=== PATIENT | female | born 1975 | race Caucasian/White ===

== ENCOUNTER 2019-10-10 13:00 | Outpatient (RCR) | payer OTHER, SELFPAY ==
[2019-08-27 09:31] VITALS: BMI 38.7
[2019-08-27 09:32] VITALS: BMI 38.7
[2019-10-10 13:03] VITALS: BMI 38.0
[2019-10-10 13:09] VITALS: BMI 38.0
== END 2019-11-25 23:59 | disposition home or self-care (01) ==
LOC: ANHDMC 13:00
PROVIDERS: PCP Internal Medicine; Visit Provider Internal Medicine
DX: E66.9 Obesity, unspecified (principal); Z71.3 Dietary counseling and surveillance; Z68.38 Body mass index [BMI] 38.0-38.9, adult; Z98.84 Bariatric surgery status
CPT/HCPCS: 97802; 97803

== ENCOUNTER 2020-09-10 07:34 | Outpatient (CLI) | payer OTHER, SELFPAY ==
--- NOTE | ~2020-09-10 | US_ITS ---
EXAMINATION: US right upper quadrant DATE: 09/10/2020 08:38 INDICATION: Right upper quadrant abdominal pain. TECHNIQUE: Multiple grayscale and Doppler ultrasound images of the abdomen were obtained. COMPARISON: CT abdomen and pelvis 10/21/2007 FINDINGS: The visualized portions of the head, body, and tail of the pancreas are normal. The liver i s normal without focal lesion. No liver surface nodularity. There is normal flow in main portal vein. The gallbladder is normal in size and contains polyps measuring up to 4 mm, likely benign cholestero l polyps needing no follow-up. No gallstones or gallbladder wall thickening. The common duct is jaky l and measures 5 mm. IMPRESSION: 1. No etiology for the patient's symptoms. Reviewed, dictated and finalized at location B.
[2020-09-10 08:56] LABS: Hematocrit 39.2 % (37.0-47.0); Hemoglobin 12.9 g/dL (12.0-15.0); Mean Corpuscular HGB Conc 32.9 g/dl (32-36); Mean Corpuscular Hemoglobin 29.9 pg (26-34); Mean Corpuscular Volume 90.7 fl (80-100); Mean Platelet Volume 10.6 fl (7.4-10.4); Platelet Count Result 298 k/mm3 (150-375); Red Blood Count 4.32 M/mm3 (4.2-5.4); White Blood Count 7.8 K/mm3 (4.5-10.0)
== END 2020-09-10 07:35 | disposition home or self-care (01) ==
PROVIDERS: PCP Internal Medicine; Visit Provider Internal Medicine
DX: R10.11 Right upper quadrant pain (principal)
CPT/HCPCS: 36415; 76705; 85027

== ENCOUNTER 2022-03-16 13:47 | Outpatient (CLI) | payer OTHER, SELFPAY ==
[2022-03-16 20:31] LABS: Thyroid Stimulating Hormone Reflex 0.319 uIU/mL (0.465-4.68)
[2022-03-16 21:28] LABS: Free T4 Free Thyroxine Reflex 0.81 ng/dL (0.78-2.19)
[2022-03-16 22:43] LABS: Total Triiodothyronine (T3) 1.21 NG/ML (0.97-1.69)
== END 2022-03-16 13:48 | disposition home or self-care (01) ==
LOC: ANHGOSHLAB 13:48
PROVIDERS: PCP Family Medicine; Visit Provider Nurse Practitioner
DX: E53.8 Deficiency of other specified B group vitamins (principal); R00.2 Palpitations
CPT/HCPCS: 36415; 82607; 84439; 84443; 84480

== ENCOUNTER 2022-06-24 12:40 | Outpatient (CLI) | payer OTHER, SELFPAY ==
[2022-06-24 13:31] LABS: Hematocrit 40.7 % (37.0-47.0); Hemoglobin 13.5 g/dL (12.0-15.0)
== END 2022-06-24 12:41 | disposition home or self-care (01) ==
PROVIDERS: Anesthesiology; PCP Family Medicine; Visit Provider Obstetrics & Gynecology
DX: D25.9 Leiomyoma of uterus, unspecified (principal); D64.9 Anemia, unspecified; Z01.818 Encounter for other preprocedural examination
CPT/HCPCS: 36415; 85014; 85018; 86850; 86900; 86901

== ENCOUNTER 2022-06-29 00:35 | Day surgery (SDC) | payer OTHER, SELFPAY ==
[2022-06-17 13:58] VITALS: BMI 40.7
--- NOTE | 2022-06-17 14:08 | PC.NURSE ---
Addendum entered by Dahlia Fischer RN 06/27/22 11:54: CALLED PT AND INSTRUCTED TO TAKE METOPROLOL (ORDERED BY DR. ROBERSON 06/23) MORNING OF SURGERY. ALSO INSTRUCTED TO TAKE SEROQUEL AT HS NIGHT BEFORE SURGERY, NOT AM OF SURGERY. (CONFIRMED WITH PT TAKES SEROQUEL AT HS ROUTINELY.) Original Note: Report to the Outpatient Waiting Room, entrance under the green pavilion located off [facility], at time 10:15 on date 06/29/22. Planned Procedure Time: 12:15. Time changes happen often and if your time is changed the preop area will call you the afternoon before. - You and your visitor will be asked to self-screen and do not enter if you have any COVID symptoms. - Only one visitor is requested with a max of two and NO children visitors are allowed at this time. - The patient visitor may be requested to leave or wait in car when not with patient due to distancing restrictions. - A mask is optional within the hospital at this time. Patients may have clear liquids (water, carbonated beverages, clear teas, apple juice) until 3 hours prior to surgery (9:15) with a maximum of 20 ounces. - No food from midnight until time of surgery Take the following medications with a SIP of water the morning of surgery: BUPROPION, QUETIAPINE, CLONAZEPAM IF NEEDED DO NOT STOP ANY OF YOUR OTHER PRESCRIPTION MEDICATIONS PRIOR TO SURGERY EXCEPT THE FOLLOWING Medications to discontinue per physician: VITAMINS/SUPPLEMENTS Date to take last dose: 06/25/22 Please no make-up, nail vietnamese, hairspray, perfume, deodorant, or body powder the day of surgery. No jewelry (including any body piercings) or valuables the day of surgery, leave them at home. Please take a shower or bath the night before, or the morning of, surgery with an antibacterial soap. Wear comfortable, loose fitting clothing. - Jewelry must be removed prior to entering the operating room. Rings and piercings that are not removed may be cut off. - The hospital will not accept responsibility for valuables. - Please leave all valuables, including medications, at home the day of surgery. If you are going home after surgery, a licensed waste collection driver must drive you home. - NO public transportation without another adult if you receive anesthesia. - We recommend that an adult stay with you for 24 hours following discharge. - We also recommend that you do not drive, make important decision, drink alcoholic beverages, or take any drugs that were not prescribed by your health care provider for at least 24 hours after your discharge time. Follow any additional instructions given to you from your surgeon. If you or anyone in your household have experienced Covid symptoms in the past week, please notify your surgeon or the nurse liaison at the phone number below for possible testing. Telephone instructions given to PT - NANCY PIERRE and asked if any additional questions and then verbalized understanding. Patient advised to call surgeon office or pre surgery nurse liaison [phone] if any additional questions.
[2022-06-29] VITALS (8 sets, daily range): BP systolic 108–149; BP diastolic 52–88; PULSE 50–73; RESP 12–19; TEMP 36.2–36.8; O2SAT 93–100
--- NOTE | ~2022-06-29 | XR_ITS ---
EXAMINATION: XR cystogram DATE: 06/29/2022 17:39 INDICATION: Bladder injury. TECHNIQUE: Water-soluble contrast was gravity-infused through the patient's Samuel catheter. Multiple fluoroscopic images were obtained. Fluoroscopy exposure time was 0.3 minutes. The total number of saba ges was 8. COMPARISON: None. FINDINGS: The bladder is normal. There is no extraluminal leakage of contrast. No ureteral reflux. IMPRESSION: 1. Normal cystogram. Reviewed, dictated and finalized at location A. TRY CULLER IMPRESSION: 1. Normal cystogram.
[2022-06-29] MEDS: ACETAMINOPHEN 500 MG TABLET 1000 MG PO (11:30)
[2022-06-29] MEDS: KETOROLAC 15 MG/ML VIAL (*BKC) IV PUSH (11:30)
[2022-06-29] MEDS: LACTATED RINGERS 1,000 ML 30 ML IV CONT (11:30)
--- NOTE | 2022-06-29 12:47 | WPDANESEPPF ---
Anes - Initial Pre Proc Eval Procedure: Operation Date: 06/29/22 12:15 Proposed Procedures p Total Laparoscopic Hysterectomy, Bilateral Salpingo Oophorectomy - Luca Walker MD Date/Time: 06/29/22 12:47 Surgeon: Luca Walker MD Pre Op Diagnosis: uterine leimyoma Patient Data Age: 46 Gender: F Height: 1.8 m Weight: 131.3 kg Last Vital Signs Temp 36.3 C L 06/29/22 11:47 Pulse 65 06/29/22 11:47 Resp 14 06/29/22 11:47 BP 134/88 06/29/22 11:47 Pulse Ox 99 06/29/22 11:47 O2 Del Method Room Air 06/29/22 11:47 Allergies Allergy/AdvReac Type Severity Reaction Status Date / Time No Known Allergies Allergy Verified 06/29/22 11:52 Home Medications Medication Instructions Recorded Confirmed Type cetirizine 10 mg tablet (Zyrtec) 10 mg PO DAILY 07/11/19 06/23/22 History cyanocobalamin (vitamin B-12) 100 mcg subcut WEEKLY 07/11/19 06/23/22 History 1,000 mcg/mL injection kit quetiapine 300 mg tablet,extended 300 mg PO HS 07/11/19 06/27/22 History release 24 hr blood sugar diagnostic (OneTouch #100 ea 05/06/20 06/23/22 Rx Ultra Blue Test Strip) blood-glucose meter (OneTouch #1 ea 05/06/20 06/23/22 Rx Ultra2 Meter) lancets 33 gauge (BD Ultra Fine #100 ea 05/06/20 06/23/22 Rx Lancets) ascorbic acid (vitamin C) 1,000 mg 1 g PO DAILY 03/16/22 06/23/22 History capsule bupropion HCl 150 mg 24 hr tablet, 150 mg PO QAM 03/16/22 06/29/22 History extended release cholecalciferol (vitamin D3) 125 125 mcg PO DAILY 03/16/22 06/23/22 History mcg (5,000 unit) capsule clonazepam 0.5 mg tablet 0.5 mg PO DAILY PRN Anxiety 03/16/22 06/29/22 History ferrous sulfate 325 mg (65 mg 325 mg PO DAILY 03/16/22 06/23/22 History iron) tablet (Iron (ferrous sulfate)) multivitamin 1 tablet PO DAILY 03/16/22 06/23/22 History azithromycin 250 mg tablet See Rx Instructions PO .COMPLEX #6 06/20/22 06/23/22 Rx tabs metoprolol succinate 25 mg 12.5 mg PO DAILY #45 tabs 06/23/22 06/23/22 Rx tablet,extended release 24 hr Patient hx anesthesia problems: none Family hx anesthesia problems: none Results Review: All pre-operative results and documents have been reviewed as part of the pre-operative evaluation. PMF Past Medical History Medical History Allergies Anxiety Arthritis Depression Family history of diabetes mellitus (DM) Headache Surgical History Surgical History H/O gastric bypass Family History Family History Mother Heart disease Depression Anxiety Grandparent Cerebrovascular accident Grandparent Diabetes mellitus Heart disease Social History Social History Smoking packs per day: 2 Smoking cigarettes per day: 40.0 Years smoked: 20 Smoking pack-years: 40.00 Smoking status: Current every day smoker Tobacco type: cigarettes and cigars Additional smoking assessment comments: QUIT CIGARETTES EARLY 2019, NOW SMOKING 3 CIGARS/DAY NOW Alcohol intake: current Alcohol use details: 3/YEAR Substance use: never Substance use type: does not use Lack of Transportation: No Lack of Food: Never True Current Housing: I Have Housing Concerned About Future Housing: No Difficulty Paying Gas/Electric Bills: No Difficulty Paying for Meds: No Currently Unemployed: No Education: Associate Degree Difficulty w/ Childcare or Family Care: No Living arrangements: with family Spiritual care concerns: No Anes - Eval Final PreProcedure Day of Procedure 06/29/22 12:47 Patient weight: morbidly obese Heart: regular rate and rhythm Lungs: decreased breath sounds Airway: Mallampati scale class 1 Neurological: alert and oriented Last oral intake: >/= 8 hours ASA classification: III Emergent: no Ane
--- NOTE | 2022-06-29 13:47 | WPDHPUPDATE1 ---
History and Physical Update Update Date/Time: 06/29/22 13:47 History and Physical has been reviewed, including an updated exam of the patient. There are NO changes in the patient's condition. Risks, benefits, and alternatives have been discussed and questions answered. Patient agrees to proceed with procedure.
[2022-06-29] MEDS: ceFAZolin 3 GM/D5W 100 ML 100 ML IVPB (14:13)
[2022-06-29] MEDS: ceFAZolin SODIUM 1 GM VIAL (15:11)
--- NOTE | 2022-06-29 16:00 | W.PM.PROC2 ---
Procedure Note - Detailed Date of Procedure 06/29/22 Pre-op Diagnosis uterine leimyoma Post-op Diagnosis Same Procedure Performed Total laparoscopic hysterectomy and bilateral salpingo-oophorectomy. Surgeon Luca Walker MD Anesthesia General Indications menorrhagia Findings enlarged fibroid uterus, normal tubes and ovaries Description of Procedure This patient was taken to the operating room. She was prepped and draped in the dorsal lithotomy position after induction of general anesthesia. The uterine manipulator and Shantel cup were placed. This was done with a speculum and tenaculum. The speculum was placed. The cervix was grasped with a tenaculum. The stay sutures were placed at 3 and 9:00 a.m.. The stay sutures of 0 Vicryl were brought through the appropriately sized Shantel cup. The tip of the MACARENA manipulator was placed in the intrauterine cavity. The cup was slid into place around the cervix and into the fornices. It was locked into place. The sutures were then wrapped around the handle and tied under tension. A 5 mm skin incision was made in the left upper quadrant the abdomen. A 5 mm trocar was inserted into the intrauterine cavity under direct visualization of the scope. Pneumoperitoneum was achieved. A left lower quadrant 11 mm incision was made with scalpel. An 11 mm trocar was inserted into the anterior abdominal cavity under direct visualization the scope. A 5 mm infraumbilical incision was made with a scalpel and a 5 mm trocar was inserted the intra-abdominal cavity under direct visualization of the scope. Bilateral ureteral lysis was performed. This was done from the pelvic brim down to the uterine artery. This was done with careful dissection using sharp and blunt dissection. The infundibulopelvic ligaments were isolated after identification of the ureters bilaterally. These infundibulopelvic ligaments were cauterized and transected with LigaSure cautery. The para ovarian tissue was cauterized and transected with LigaSure cautery bilaterally. Moving around the ovary into the broad ligament the tissue was cauterized transected with LigaSure cautery. The round ligaments were cauterized transected with LigaSure cautery this was all done in a bilateral fashion. In a stepwise fashion along the lateral aspects of the uterus the round ligament and broad ligaments were cauterized transected down to the level of the uterine arteries. A bladder flap was created in the bladder was moved distally to the end of the cervix and over the Shantel cup. The bilateral uterine arteries were cauterized and transected. Colpotomy was then performed. In a circumferential fashion the vagina was transected using unipolar cautery. The incision was made down on the Shantel cup. The uterus, cervix, fallopian tubes and ovaries were taken out through the vagina. A pneumo occluder was placed in the vagina. The vaginal cuff was closed with a 0 V lock suture in a running fashion. The pelvis was irrigated with copious amounts antibiotic irrigation. The ureters were again examined and found to be intact and flowing freely under the uterine arteries into the bladder. The bladder was intact. It was examined directly. The vagina was irrigated with Betadine solution after removal of the Pneumo occluder. The patient was taken to recovery room. She was stable condition. Sponge lap and needle counts were correct x2. Estimated Blood Loss 200 Drains Yes Packing No Pathology Yes Complications No immediate complications Condition Stable Disposition Floor
--- NOTE | 2022-06-29 16:12 | SUR.OPER ---
Second sinha inserted at end of case due to first sinha bulb damaged during procedure. Dr Walker was called and informed. Order received to replace sinha and ordered a cystogram in the PACU. 16F / 10ml balloon sinha replaced at 16:08 by Nilsa ARANDA.
--- NOTE | 2022-06-29 17:36 | SUR.PHASEI ---
1717 taken to for cystogram. 1735 returned to pacu.
--- NOTE | 2022-06-29 18:05 | PC.NURSE ---
This patient, Kelin Little, was received from PACU per bed to room 283. Patient/family oriented to unit policies and routines
[2022-06-29] MEDS: DEXTROSE 5%/0.45% SOD CHL 1,000 ML 125 ML IV CONT (19:15)
[2022-06-29] MEDS: ESTRADIOL 7 DAY 0.05 MG PATCH TRANSDERM (19:16)
[2022-06-29] MEDS: IBUPROFEN 600 MG TABLET PO (19:24)
[2022-06-29] MEDS: HYDROcodone/acetaminophen (*CRX) 5-325 MG TABLET 1 TAB PO (19:24)
[2022-06-29] MEDS: ONDANSETRON INJ 4 MG/2 ML VIAL IV PUSH (23:28)
[2022-06-30 00:11] VITALS: BP 135/70; PULSE 65; RESP 18; TEMP 36.9; O2SAT 96
[2022-06-30] MEDS: IBUPROFEN 600 MG TABLET PO ×2 (01:13→07:58)
[2022-06-30] MEDS: HYDROcodone/acetaminophen (*CRX) 10-325 MG TABLET 1 TAB PO ×3 (01:13→07:59)
[2022-06-30 04:44] VITALS: BP 121/68; PULSE 79; RESP 18; TEMP 37.2; O2SAT 95
[2022-06-30 08:00] VITALS: BP 124/70; PULSE 65; RESP 18; TEMP 36.8; O2SAT 97
--- NOTE | 2022-06-30 08:08 | PM.GYNPNOP ---
[employer] - A/P Postoperative Procedures: Procedures Operation Date: 06/29/22 12:15 Actual Procedure Side Surgeon p Total Laparoscopic Hysterectomy, Bilateral Salpingo Oophorectomy Bilateral Luca Walker MD Postoperative day: 1 Postoperative status: doing well Postoperative plan: see orders Time Spent With Patient Time: Total time spent is greater than 50% in coordination of care (as documented) at patient's floor/unit and/or counseling patient: Time with patient: less than 15 minutes [employer]- PN:Subj Post-Op Subjective Date/time seen: 06/30/22 08:08 Subjective: patient reports feeling better, patient has no complaints and pain is well controlled Exam Const: General: healthy appearing, comfortable and no acute distress Resp: Auscultation: clear to auscultation bilaterally, no rales, no rhonchi and no wheezes Cardio: Rate: regular rate Heart sounds: no click, no murmurs and no rubs GI: Inspection: non-distended Auscultation: normal bowel sounds Extrem: General: normal to inspection, no pedal edema and no calf tenderness [employer] - PN: Obj Data Vital Signs Vital Signs: Vital Signs - 24 hr 06/29/22 11:47 06/29/22 16:22 06/29/22 16:35 Temperature 97.4 F L 97.1 F L Pulse Rate 65 73 61 Respiratory Rate 14 12 16 Blood Pressure 134/88 108/61 109/73 Pulse Oximetry 99 97 100 Oxygen Delivery Room Air Simple Face Mask Simple Face Mask Oxygen Flow Rate 6 6 06/29/22 16:50 06/29/22 17:05 06/29/22 17:35 Temperature Pulse Rate 50 L 53 L 55 L Respiratory Rate 12 19 18 Blood Pressure 116/52 L 111/62 134/65 Pulse Oximetry 100 100 93 Oxygen Delivery Room Air Room Air Room Air Oxygen Flow Rate 06/29/22 17:50 06/29/22 19:55 06/30/22 00:11 Temperature 98.2 F 98.4 F Pulse Rate 61 60 65 Respiratory Rate 13 18 18 Blood Pressure 133/71 149/78 H 135/70 Pulse Oximetry 95 96 96 Oxygen Delivery Room Air Oxygen Flow Rate 06/30/22 04:44 Temperature 98.9 F Pulse Rate 79 Respiratory Rate 18 Blood Pressure 121/68 Pulse Oximetry 95 Oxygen Delivery Oxygen Flow Rate Intake/Output Intake/Output: Intake & Output 06/27/22 06/28/22 06/29/22 06/30/22 23:59 23:59 23:59 23:59 Intake Total 800 1190 Output Total 30 1500 Balance 770 -310 Meds/Results Medications: Active Medications Generic Name Dose Route Start Last Admin Trade Name Freq PRN Reason Stop Dose Admin Hydrocodone Bitart/Acetaminophen 1 tab 06/29/22 16:02 06/29/22 19:24 Hydrocodone/Acetaminophen (*Crx) 5-325 Mg Tablet PO 1 tab Q3H PRN Administration Pain Rated 5 or Less Hydrocodone Bitart/Acetaminophen 1 tab 06/29/22 16:02 06/30/22 07:59 Hydrocodone/Acetaminophen (*Crx) 10-325 Mg Tablet PO 1 tab Q3H PRN Administration Pain Rated 6 or Greater Estradiol 0.05 mg 06/29/22 09:00 06/29/22 19:16 Estradiol 7 Day 0.05 Mg Patch TRANSDERM 0.05 mg WEEKLY DONOVAN Administration Ibuprofen 600 mg 06/29/22 16:02 06/30/22 07:58 Ibuprofen 600 Mg Tablet PO 600 mg Q6H PRN Administration Cramping Naloxone HCl 0.1 mg 06/29/22 16:02 Naloxone Hcl 0.4 Mg/Ml Vial IV PUSH Q2M PRN Respiratory rate less than 10 Ondansetron HCl 4 mg 06/29/22 16:02 06/29/22 23:28 Ondansetron Inj 4 Mg/2 Ml Vial IV PUSH 4 mg Q6H PRN Administration Nausea And Vomiting Radiology Results: ITS Impressions Cystogram 06/29/22 17:40 IMPRESSION: 1. Normal cystogram.
== END 2022-06-30 10:10 | disposition home or self-care (01) ==
LOC: ANHSURGERY 10:14 → ANHOB2 17:59
PROVIDERS: PCP Family Medicine; Visit Provider Obstetrics & Gynecology
PROC: 0UT9FZZ Resection of Uterus, Via Natural or Artificial Opening With Percutaneous Endoscopic Assistance (ICD-10-PCS; CPT 58571; principal; 2022-06-29 12:15)
DX: D25.9 Leiomyoma of uterus, unspecified (principal); F41.9 Anxiety disorder, unspecified; F32.A Depression, unspecified; Z98.84 Bariatric surgery status; F17.290 Nicotine dependence, other tobacco product, uncomplicated; E66.01 Morbid (severe) obesity due to excess calories; Z68.41 Body mass index [BMI] 40.0-44.9, adult
CPT/HCPCS: 58571; 36415; 51600; 74430; 85014; 85018; 86850; 86900; 86901; 88307; 99199; A9270; J0330; J0690; J1100; J1170; J1885; J2250; J2405; J2704; J3010; J7120; Q9967

== ENCOUNTER 2022-07-28 08:02 | Outpatient (CLI) | payer OTHER, SELFPAY ==
--- NOTE | 2022-08-15 15:36 | WPDHOMESLEEP ---
Sleep Study - Home Unattended Date of Study: 07/28/22 Ordering Provider: Rm Kincaid DO Interpreting Provider: Silvia Wilson DO Home Sleep Study Type: Watch PAT Height: 1.8 m Weight: 132.449 kg Body Mass Index: 40.7 Neck Circumference (inches): 16.25 Martin: 7 Reason for Sleep Study Unrefreshing sleep, daytime hypersomnia Sleep History The patient is a 46-year-old female with anxiety, depression, bipolar disorder, palpitations, GERD, anemia, arthritis, history of gastric bypass in August 2009, current cigar use and history of SHELBY on CPAP (discontinued after weight loss 10 years ago) that had a sleep study ordered for evaluation of sleep apnea. The patient frequently awakens from sleep short of breath. She occasionally awakens at night with heartburn, belching or cough. She occasionally snores but it is rarely loud enough that others complain. She frequently has trouble sleeping when she has a cold. She frequently wakes up gasping for air throughout the night. She frequently has breathing problems at night observed by herself or others. She constantly sweats excessively at night. She constantly has heart palpitations or irregular heartbeats during the night. She frequently falls asleep during the day but never while driving. She denies sleep paralysis and cataplexy. She frequently has trouble at school or work due to sleepiness. She frequently experiences vivid dreamlike scenes upon awakening or falling asleep. She denies feeling afraid of going to sleep. She rarely has nightmares. She constantly remembers her dreams. She frequently has thoughts racing through her mind. She occasionally feels sad or depressed and frequently has anxiety. She frequently has muscular tension. She denies noticing parts of her body jerk. She denies kicking during the night. She denies having crawling and aching feelings in her legs and denies having leg pain during the night. She frequently grinds her teeth during sleep and occasionally awakens with morning jaw pain. She is frequently bothered by pain during the day but never awakened by pain during the night. She constantly wakes up feeling stiff in the morning. She constantly wakes up with sore or achy muscles. She constantly wakes up with pain in the neck, spine or other joints. She goes to bed at 9:00 p.m. on weekdays and at 10:00 p.m. on the weekends. it takes 60-90 minutes for her to fall asleep. She wakes up once at most throughout the night to urinate and is able to fall back asleep within 10 minutes. She wakes up at 6:00 a.m. on weekdays and between 7-8 a.m. on the weekends. She typically gets 8 hours of sleep per night. She will stay in bed for few minutes after waking up in the morning. She currently lives with her and adult granddaughter. She does not consume any caffeinated beverages within 2 hours of bedtime. She does not engage in physical exercise before bedtime. She will read before falling asleep. She will take naps in the afternoon or the evening but they are not refreshing. She consumes 2 caffeinated beverages per day. She currently has 1 cigar every 2-3 days. She denies alcohol and recreational drug use. [facility] Past Medical History Medical History Allergies Anxiety Arthritis Depression Family history of diabetes mellitus (DM) Headache Surgical History Surgical History H/O gastric bypass Family History Family History Mother Heart disease Depression Anxiety Grandparent Cerebrovascular accident Grandparent Diabetes mellitus Heart disease Social History Social History Smoking packs per day: 2 Smoking cigarettes per day: 40.0 Years smoked: 20 Smoking pack-years: 40.00 Smoking status: Current every day s
[2022-08-15 15:53] VITALS: BMI 40.7
== END 2022-07-29 11:23 | disposition home or self-care (01) ==
LOC: ANHCSM 08:04
PROVIDERS: PCP Family Medicine; Visit Provider Internal Medicine Cardiovascular Disease
DX: G47.33 Obstructive sleep apnea (adult) (pediatric) (principal)
CPT/HCPCS: 95800

== ENCOUNTER 2023-04-25 01:13 | Day surgery (SDC) | payer OTHER, SELFPAY ==
[2023-04-18 11:34] VITALS: BMI 41.0
--- NOTE | 2023-04-21 08:48 | SUR.PREOP ---
Patient called regarding upcoming procedure. Message left on pt's voicemail regarding appointment times.
--- NOTE | 2023-04-24 11:42 | PM.HPGS ---
History of Present Illness History of Present Illness Consent: Risks, benefits, and alternatives have been discussed and questions answered. Patient agrees to proceed with procedure. 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 She will need to quit eating altogether because she cannot then even get water to go down. Another issue is that she gets a discomfort in the left lateral costal margin during or after meals. She had seen a surgeon who told her that she probably has trapped gas . She has noticed that she is getting frequent diarrhea now, more than she had in the past with her surgery. Review of Systems Review of Systems: All systems reviewed & are unremarkable except as noted in HPI and below PMFSH Past Medical History Medical History Allergies Anxiety Arthritis Depression Family history of diabetes mellitus (DM) Headache Surgical History Surgical History H/O gastric bypass Family History Family History Mother Heart disease Depression Anxiety Grandparent Cerebrovascular accident Grandparent Diabetes mellitus Heart disease Social History Social History Smoking packs per day: 1 Smoking cigarettes per day: 20.0 Years smoked: 32 Smoking pack-years: 32.00 Smoking status: Current every day smoker Tobacco type: cigars Additional smoking assessment comments: QUIT CIGARETTES EARLY 2019, NOW SMOKING 3 CIGARS/DAY NOW Alcohol intake: current Alcohol use details: 3/YEAR Substance use: former Substance use type: does not use Lack of Transportation: No Lack of Food: Never True Current Housing: I Have Housing Concerned About Future Housing: No Difficulty Paying Gas/Electric Bills: No Difficulty Paying for Meds: No Currently Unemployed: No Education: Associate Degree Difficulty w/ Childcare or Family Care: No Living arrangements: with family Spiritual care concerns: No Meds Home Medications and Allergies Home Medications Medication Instructions Recorded Confirmed Type cetirizine 10 mg tablet (Zyrtec) 10 mg PO DAILY 07/11/19 04/25/23 History quetiapine 300 mg tablet,extended 300 mg PO HS 07/11/19 04/25/23 History release 24 hr ascorbic acid (vitamin C) 1,000 mg 1 g PO DAILY 03/16/22 04/25/23 History capsule bupropion HCl 150 mg 24 hr tablet, 150 mg PO QAM 03/16/22 04/25/23 History extended release cholecalciferol (vitamin D3) 125 125 mcg PO DAILY 03/16/22 04/25/23 History mcg (5,000 unit) capsule clonazepam 0.5 mg tablet 0.5 mg PO DAILY PRN Anxiety 03/16/22 04/25/23 History ferrous sulfate 325 mg (65 mg 325 mg PO DAILY 03/16/22 04/25/23 History iron) tablet (Iron (ferrous sulfate)) multivitamin 1 tablet PO DAILY 03/16/22 04/25/23 History metoprolol succinate 25 mg 12.5 mg PO DAILY #45 tabs 07/28/22 04/25/23 Rx tablet,extended release 24 hr autopap #1 ea 08/17/22 04/25/23 Rx blood sugar diagnostic #100 ea 11/02/22 04/25/23 Rx lancets 33 gauge (BD Ultra Fine #100 ea 11/02/22 04/25/23 Rx Lancets) blood-glucose meter (Contour Next #1 ea 11/24/22 04/25/23 Rx One Meter) sumatriptan succinate 100 mg tablet See Rx Instructions PO .COMPLEX 12/12/22 04/25/23 Rx #10 tabs cyanocobalamin (vitamin B-12) 1,000 mcg subcut WEEKLY 90 days 04/03/23 04/25/23 Rx 1,000 mcg/mL injection solution #13 mL amoxicillin 875 mg-potassium 1 tablet PO BID #20 tabs 04/14/23 04/25/23 Rx clavulanate 125 mg tablet estradiol 2 mg tablet 2 m
[2023-04-25 09:07] VITALS: BP 123/76; PULSE 70; RESP 16; TEMP 36.4; O2SAT 97; BMI 41.3
[2023-04-25] MEDS: LACTATED RINGERS 1,000 ML 150 ML IV CONT (09:15)
--- NOTE | 2023-04-25 09:51 | WPDANESEPPF ---
Anes - Initial Pre Proc Eval Procedure: Operation Date: 04/25/23 10:30 Proposed Procedures p Esophagogastroduodenoscopy - Joe Henry MD Date/Time: 04/25/23 09:51 Surgeon: Joe Henry MD Pre Op Diagnosis: acquired absence of stomach part of,abdominal pain Patient Data Age: 47 Gender: F Height: 1.8 m Weight: 134.6 kg Last Vital Signs Temp 97.6 F 04/25/23 09:07 Pulse 70 04/25/23 09:07 Resp 16 04/25/23 09:07 BP 123/76 04/25/23 09:07 Pulse Ox 97 04/25/23 09:07 O2 Del Method Room Air 04/25/23 09:07 Allergies Allergy/AdvReac Type Severity Reaction Status Date / Time No Known Allergies Allergy Verified 04/25/23 09:05 Home Medications Medication Instructions Recorded Confirmed Type cetirizine 10 mg tablet (Zyrtec) 10 mg PO DAILY 07/11/19 04/25/23 History quetiapine 300 mg tablet,extended 300 mg PO HS 07/11/19 04/25/23 History release 24 hr ascorbic acid (vitamin C) 1,000 mg 1 g PO DAILY 03/16/22 04/25/23 History capsule bupropion HCl 150 mg 24 hr tablet, 150 mg PO QAM 03/16/22 04/25/23 History extended release cholecalciferol (vitamin D3) 125 125 mcg PO DAILY 03/16/22 04/25/23 History mcg (5,000 unit) capsule clonazepam 0.5 mg tablet 0.5 mg PO DAILY PRN Anxiety 03/16/22 04/25/23 History ferrous sulfate 325 mg (65 mg 325 mg PO DAILY 03/16/22 04/25/23 History iron) tablet (Iron (ferrous sulfate)) multivitamin 1 tablet PO DAILY 03/16/22 04/25/23 History metoprolol succinate 25 mg 12.5 mg PO DAILY #45 tabs 07/28/22 04/25/23 Rx tablet,extended release 24 hr autopap #1 ea 08/17/22 04/25/23 Rx blood sugar diagnostic #100 ea 11/02/22 04/25/23 Rx lancets 33 gauge (BD Ultra Fine #100 ea 11/02/22 04/25/23 Rx Lancets) blood-glucose meter (Contour Next #1 ea 11/24/22 04/25/23 Rx One Meter) sumatriptan succinate 100 mg tablet See Rx Instructions PO .COMPLEX 12/12/22 04/25/23 Rx #10 tabs cyanocobalamin (vitamin B-12) 1,000 mcg subcut WEEKLY 90 days 04/03/23 04/25/23 Rx 1,000 mcg/mL injection solution #13 mL amoxicillin 875 mg-potassium 1 tablet PO BID #20 tabs 04/14/23 04/25/23 Rx clavulanate 125 mg tablet estradiol 2 mg tablet 2 mg PO DAILY 04/18/23 04/25/23 History omeprazole magnesium 20 mg 20 mg PO DAILY 04/18/23 04/25/23 History tablet,delayed release (Prilosec OTC) insulin syringe-needle U-100 1 mL #500 ea 04/21/23 04/25/23 Rx 27 gauge x 1/2 (BD Insulin Syringe) Patient hx anesthesia problems: none Family hx anesthesia problems: none Results Review: All pre-operative results and documents have been reviewed as part of the pre-operative evaluation. [facility] Past Medical History Medical History Allergies Anxiety Arthritis Depression Family history of diabetes mellitus (DM) Headache Surgical History Surgical History H/O gastric bypass Family History Family History Mother Heart disease Depression Anxiety Grandparent Cerebrovascular accident Grandparent Diabetes mellitus Heart disease Social History Social History Smoking packs per day: 1 Smoking cigarettes per day: 20.0 Years smoked: 32 Smoking pack-years: 32.00 Smoking status: Current every day smoker Tobacco type: cigars Additional smoking assessment comments: QUIT CIGARETTES EARLY 2019, NOW SMOKING 3 CIGARS/DAY NOW Alcohol intake: current Alcohol use details: 3/YEAR Substance use: former Substance use type: does not use Lack of Transportation: No Lack of Food: Never True Current Housing: I Have Housing Concerned About Future Housing: No Difficulty Paying Gas/Electric Bills: No Difficulty Paying for Meds: No Currently Unemployed: No Education: Associate Degree Difficulty w/ Childcare or Family
[2023-04-25 10:28] VITALS: BP 113/69; PULSE 62; RESP 20; O2SAT 94
[2023-04-25 10:38] VITALS: BP 113/74; PULSE 63; RESP 17; O2SAT 97
[2023-04-25 10:48] VITALS: BP 119/76; PULSE 62; RESP 20; O2SAT 97
== END 2023-04-25 10:49 | disposition home or self-care (01) ==
PROVIDERS: PCP Family Medicine; Visit Provider Internal Medicine Gastroenterology
PROC: 0DJ08ZZ Inspection of Upper Intestinal Tract, Via Natural or Artificial Opening Endoscopic (ICD-10-PCS; CPT 43235; principal; 2023-04-25 10:30)
DX: K21.00 Gastro-esophageal reflux disease with esophagitis, without bleeding (principal); Z98.84 Bariatric surgery status; F41.9 Anxiety disorder, unspecified; F32.A Depression, unspecified; F17.290 Nicotine dependence, other tobacco product, uncomplicated; F10.90 Alcohol use, unspecified, uncomplicated; T78.40XA Allergy, unspecified, initial encounter; Z79.4 Long term (current) use of insulin; Z79.890 Hormone replacement therapy; Z79.899 Other long term (current) drug therapy
CPT/HCPCS: 43239; 88305; J2001; J2704; J7120

== ENCOUNTER → 2023-05-18 12:57 | Outpatient (CLI) | payer OTHER, SELFPAY ==
--- NOTE | ~2023-05-18 | CT_ITS ---
EXAMINATION: CT abdomen pelvis w con DATE: 05/18/2023 13:25 INDICATION: Left upper quadrant abdominal pain. History of gastric bypass in 2010 TECHNIQUE: Computed tomography (CT) of the abdomen and pelvis was performed with 100 CC Omnipaque 350 intravenous contrast. Automated exposure control and iterative reconstruction technique were employe d. Exam dose: 1135.69 mGy-cm total exam DLP. COMPARISON: 10/21/2007 CT renal scan FINDINGS: The lung bases are clear. Normal heart size. No pericardial or pleural effusion. The gallbladder is present. Cannot confirm or exclude small stones in the dependent aspect of the gal lbladder. Soft tissue detail is limited due to body habitus. Consider correlation with gallbladder ul trasound examination. No gallbladder wall thickening or pericholecystic fluid or fat stranding. No bile duct or pancreatic duct dilatation. No pancreatic mass lesion or calcification. Normal splenic size. Approximately 2 x 2.2 cm left adrenal lesion with attenuation of 18 Hounsfield units, likely an adren al adenoma. The adrenal glands are otherwise unremarkable. Indeterminate 9 mm hypoenhancing lesion in the anterior aspect of the upper pole of the right kidney. Indeterminate approximately 9 x 14 mm hypoenhancing lesion of the posteromedial mid left kidney with attenuation of approximately 40 Hounsfield units. No urinary tract calculus or hydroureteronephrosis is evident. The urinary bladder appears unremarkab le. Status post hysterectomy. Normal caliber of the abdominal aorta. No intraperitoneal or retroperitoneal or pelvic mass lesion or adenopathy or ascites is noted. Postoperative change from gastric bypass surgery. No evidence of appendicitis. No bowel obstruction, bowel wall thickening, pneumatosis or intraperiton eal free air. Very small fat-containing umbilical hernia. Diffuse idiopathic skeletal hyperostosis of the thoracic spine. No suspicious osteolytic or osteoblas tic lesions. IMPRESSION: Status post gastric bypass surgery; no bowel obstruction 9 mm upper pole nonspecific renal hypoenhancing lesion and 9 x 14 mm hypoenhancing lesion of the post eromedial left mid kidney minimal wall calcification. These are indeterminate, not apparently present on 10/21/[address] renal examination. Consider renal MRI or 6-[address] imaging Cannot confirm or exclude small gallstones 2 x 2.2 cm left adrenal probable adenoma Status post hysterectomy Reviewed, dictated and finalized at [facility]. Reviewed, dictated and finalized at location [facility]. WINTERIZER IMPRESSION: Status post gastric bypass surgery; no bowel obstruction 9 mm upper pole nonspecific renal hypoenhancing lesion and 9 x 14 mm hypoenhanc ing lesion of the posteromedial left mid kidney minimal wall calcification. The se are indeterminate, not apparently present on 10/21/[address] renal examination. Consider renal MRI or 6-[address] imaging Cannot confirm or exclude small gallstones 2 x 2.2 cm left adrenal probable adenoma Status post hysterectomy
== END ==
PROVIDERS: PCP Family Medicine; Visit Provider Family Medicine
DX: R10.12 Left upper quadrant pain (principal); D35.02 Benign neoplasm of left adrenal gland; Z98.84 Bariatric surgery status
CPT/HCPCS: 74177; Q9967

== ENCOUNTER → 2023-05-26 07:50 | Outpatient (CLI) | payer OTHER, SELFPAY ==
--- NOTE | ~2023-05-26 | MR_ITS ---
EXAMINATION: MR renal wo/w con DATE: 05/26/2023 08:48 INDICATION: Disorders of kidney with indeterminate left renal lesion on prior CT. TECHNIQUE: Magnetic resonance imaging (MRI) of the abdomen was performed with 100 mL Omnipaque-350 in travenous contrast. Sequences included coronal T2-weighted SS-FSE, coronal and axial FS 2D-FIESTA, a xial STIR FSE, axial T2-weighted SS-FSE, axial T2-weighted FS SS-FSE, axial diffusion-weighted SE, ax ial dual-echo T1-weighted FSPGR, and axial and coronal T1-weighted LAVA. Postcontrast axial T1-weight ed LAVA images were obtained in a time course. Postcontrast coronal T1-weighted LAVA images were obta ined. COMPARISON: CT abdomen and pelvis dated 05/18/2023 FINDINGS: Heart size is normal. No pericardial or pleural effusion. Liver, gallbladder, spleen, pancreas and ri ght adrenal gland are normal. 2.3 cm left adrenal adenoma with diagnostic signal dropout on opposed p hase imaging consistent with intracellular lipid. 11 mm cystic lesion at the mid left kidney which de monstrates minimally thickened, less than 2 mm peripherally enhancing wall and a single mildly thicke meg 2-3 mm enhancing internal septation which be consistent with a Bosniak 2F. 10 mm T2 hyperintense Bosniak 1 simple cyst at the upper pole of the right kidney. Visualized portions of bowels are unrema rkable. No pathologically enlarged abdominal or upper pelvic lymphadenopathy. There are T1 hyperinten se hemangiomas at T10 and T12. Bones are otherwise unremarkable. IMPRESSION: 1. 11 mm Bosniak 2F pelvis complex cystic left renal lesion. Recommend 6 month follow-up pre and post contrast MRI or CT. Reviewed, dictated and finalized at location A. INUUM OF CARE MANAGER IMPRESSION: 1. 11 mm Bosniak 2F pelvis complex cystic left renal lesion. Recommend 6 month follow-up pre and postcontrast MRI or CT.
== END ==
PROVIDERS: PCP Family Medicine; Visit Provider Family Medicine
DX: N28.89 Other specified disorders of kidney and ureter (principal)
CPT/HCPCS: 74183; A9577

== ENCOUNTER 2023-06-07 08:25 | Outpatient (CLI) | payer OTHER, SELFPAY ==
--- NOTE | ~2023-06-07 | XR_ITS ---
EXAMINATION: XR UGIAC w small bowel DATE: 06/07/2023 11:09 INDICATION: Postprandial left upper quadrant abdominal pain and vomiting. TECHNIQUE: The patient drank thick barium, gas-producing crystals, and thin barium. Conventional supi ne abdomen radiographs and fluoroscopic spot radiographs of the esophagus, stomach, and proximal smal l bowel were obtained. Additional overhead radiographs were obtained during the transit through the s mall bowel. Spot fluoroscopic images of the small bowel were obtained upon contrast reaching the cec um. Fluoroscopy exposure time was 1.7 minutes. A total of 640 fluoroscopic images and 9 overhead radi ographs were recorded. COMPARISON: None. FINDINGS: The esophagus is normal without mass or stricture. Esophageal motility is normal. No hiatal hernia. P ostoperative change of prior gastric bypass procedure with surgical sutures along the small residual gastric remnant. There was rapid passage of the ingested contrast through the stomach into the Abbie l imb with insufficient contrast remaining within the stomach to assess for gastroesophageal reflux. Transit time from the stomach to proximal colon was approximately 30 minutes. There is normal caliber and mucosal fold pattern throughout the small bowel. Terminal ileum is normal. No tethering or abn ormal mass effect observed upon the small bowel with real-time fluoroscopy. IMPRESSION: 1. Changes consistent with prior Abbie-en-Y gastric bypass procedure with rapid passage of contrast fr om esophagus through the small gastric remnant and into the Abbie limb with no obstruction. Otherwise unremarkable upper GI and small bowel follow-through study. Reviewed, dictated and finalized at location A. WINCH OPERATOR IMPRESSION: 1. Changes consistent with prior Abbie-en-Y gastric bypass procedure with rapid passage of contrast from esophagus through the small gastric remnant and into t he Abbie limb with no obstruction. Otherwise unremarkable upper GI and small bow el follow-through study.
--- NOTE | ~2023-06-07 | US_ITS ---
Limited Abdominal Sonogram: Real-time sonographic imaging of the right upper quadrant was performed. Clinical History: Abnormal CT scan Findings: The liver appears echogenic, with no evidence of mass lesion or bile duct dilatation. Main portal vein demonstrates normal direction of flow. The gallbladder is well distended, and appears no rmal with no evidence of gallstone or wall thickening. The common bile duct measures 3 mm. The visua lized pancreas, aorta, and IVC are unremarkable. Impression: Diffuse fatty infiltration of the liver. Reviewed, dictated and finalized at location M. ODONTIST SMALL BUSINESS OWNER Impression: Diffuse fatty infiltration of the liver.
== END 2023-06-07 08:26 | disposition home or self-care (01) ==
PROVIDERS: PCP Family Medicine; Visit Provider Nurse Practitioner
DX: R93.2 Abnormal findings on diagnostic imaging of liver and biliary tract (principal); K76.0 Fatty (change of) liver, not elsewhere classified
CPT/HCPCS: 74246; 74248; 76705

== ENCOUNTER 2023-06-13 01:09 | Day surgery (SDC) | payer OTHER, SELFPAY ==
[2023-05-29 15:01] VITALS: BMI 41.9
--- NOTE | 2023-06-09 10:51 | SUR.PREOP ---
Patient called regarding upcoming procedure. Reviewed preop instructions, appointment times, and procedure prep.
--- NOTE | 2023-06-12 19:29 | PM.HPGS ---
History of Present Illness History of Present Illness Consent: Risks, benefits, and alternatives have been discussed and questions answered. Patient agrees to proceed with procedure. Chief complaint: neoplasm screening Narrative: Kelin Little is a 47 year old female who is referred for colon cancer screening. Review of Systems Review of Systems: All systems reviewed & are unremarkable except as noted in HPI and below PMFSH Past Medical History Medical History Abnormal CT scan, gallbladder Allergies Anxiety Arthritis Chronic diarrhea Colon cancer screening Depression Family history of diabetes mellitus (DM) Fatty liver Headache Left upper quadrant abdominal pain Nonerosive esophageal reflux disease Vomiting Surgical History Surgical History H/O gastric bypass Family History Family History Mother Heart disease Depression Anxiety Grandparent Cerebrovascular accident Grandparent Diabetes mellitus Heart disease Social History Social History Smoking packs per day: 1 Smoking cigarettes per day: 20.0 Years smoked: 32 Smoking pack-years: 32.00 Smoking status: Current every day smoker Tobacco type: cigars Additional smoking assessment comments: QUIT CIGARETTES EARLY 2019, NOW SMOKING 3 CIGARS/DAY NOW Alcohol intake: current Alcohol use details: 3 drinks monthly Substance use: former Substance use type: does not use Lack of Transportation: No Lack of Food: Never True Current Housing: I Have Housing Concerned About Future Housing: No Difficulty Paying Gas/Electric Bills: No Difficulty Paying for Meds: No Currently Unemployed: No Education: Associate Degree Difficulty w/ Childcare or Family Care: No Living arrangements: with family Spiritual care concerns: No Meds Home Medications and Allergies Home Medications Medication Instructions Recorded Confirmed Type cetirizine 10 mg tablet (Zyrtec) 10 mg PO DAILY 07/11/19 06/13/23 History quetiapine 300 mg tablet,extended 300 mg PO HS 07/11/19 06/13/23 History release 24 hr ascorbic acid (vitamin C) 1,000 mg 1 g PO DAILY 03/16/22 06/13/23 History capsule bupropion HCl 150 mg 24 hr tablet, 150 mg PO QAM 03/16/22 06/13/23 History extended release cholecalciferol (vitamin D3) 125 125 mcg PO DAILY 03/16/22 06/13/23 History mcg (5,000 unit) capsule clonazepam 0.5 mg tablet 0.5 mg PO DAILY PRN Anxiety 03/16/22 06/13/23 History ferrous sulfate 325 mg (65 mg 325 mg PO DAILY 03/16/22 06/13/23 History iron) tablet (Iron (ferrous sulfate)) multivitamin 1 tablet PO DAILY 03/16/22 06/13/23 History autopap #1 ea 08/17/22 06/13/23 Rx blood sugar diagnostic #100 ea 11/02/22 06/13/23 Rx lancets 33 gauge (BD Ultra Fine #100 ea 11/02/22 06/13/23 Rx Lancets) blood-glucose meter (Contour Next #1 ea 11/24/22 06/13/23 Rx One Meter) cyanocobalamin (vitamin B-12) 1,000 mcg subcut WEEKLY 90 days 04/03/23 06/13/23 Rx 1,000 mcg/mL injection solution #13 mL estradiol 2 mg tablet 2 mg PO DAILY 04/18/23 06/13/23 History sumatriptan succinate 100 mg tablet See Rx Instructions PO .COMPLEX 04/27/23 06/13/23 Rx #10 tabs insulin syringe-needle U-100 1 mL #500 ea 05/02/23 06/13/23 Rx 27 gauge x 1/2 (BD Insulin Syringe) cholestyramine (with sugar) 4 gram 4 g PO BID #60 ea 05/25/23 06/13/23 Rx powder for susp in a packet (Questran) dicyclomine 20 mg tablet 20 mg PO QID #120 tabs 05/25/23 06/13/23 Rx lansoprazole 30 mg capsule,delayed 30 mg PO DAILY #30 caps 05/25/23 06/13/23 Rx release metoprolol succinate 25 mg 12.5 mg PO DAILY 05/29/23 06/13/23 History tablet,extended release 24 hr Allergies Allergy/AdvReac Type Severity Reaction Status Date / Time No Known Allerg
[2023-06-13 07:21] VITALS: BP 129/81; PULSE 65; RESP 16; TEMP 36.7; O2SAT 98; BMI 41.8
[2023-06-13] MEDS: LACTATED RINGERS 1,000 ML 150 ML IV CONT (07:25)
--- NOTE | 2023-06-13 08:13 | WPDANESEPPF ---
Anes - Initial Pre Proc Eval Procedure: Operation Date: 06/13/23 08:30 Proposed Procedures p Screening Colonoscopy - Joe Henry MD Date/Time: 06/13/23 08:13 Surgeon: Joe Henry MD Pre Op Diagnosis: neoplasm screening Patient Data Age: 47 Gender: F Height: 1.8 m Weight: 135.9 kg Last Vital Signs Temp 98.0 F 06/13/23 07:21 Pulse 65 06/13/23 07:21 Resp 16 06/13/23 07:21 BP 129/81 06/13/23 07:21 Pulse Ox 98 06/13/23 07:21 O2 Del Method Room Air 06/13/23 07:21 Allergies Allergy/AdvReac Type Severity Reaction Status Date / Time No Known Allergies Allergy Verified 06/13/23 07:19 Home Medications Medication Instructions Recorded Confirmed Type cetirizine 10 mg tablet (Zyrtec) 10 mg PO DAILY 07/11/19 06/13/23 History quetiapine 300 mg tablet,extended 300 mg PO HS 07/11/19 06/13/23 History release 24 hr ascorbic acid (vitamin C) 1,000 mg 1 g PO DAILY 03/16/22 06/13/23 History capsule bupropion HCl 150 mg 24 hr tablet, 150 mg PO QAM 03/16/22 06/13/23 History extended release cholecalciferol (vitamin D3) 125 125 mcg PO DAILY 03/16/22 06/13/23 History mcg (5,000 unit) capsule clonazepam 0.5 mg tablet 0.5 mg PO DAILY PRN Anxiety 03/16/22 06/13/23 History ferrous sulfate 325 mg (65 mg 325 mg PO DAILY 03/16/22 06/13/23 History iron) tablet (Iron (ferrous sulfate)) multivitamin 1 tablet PO DAILY 03/16/22 06/13/23 History autopap #1 ea 08/17/22 06/13/23 Rx blood sugar diagnostic #100 ea 11/02/22 06/13/23 Rx lancets 33 gauge (BD Ultra Fine #100 ea 11/02/22 06/13/23 Rx Lancets) blood-glucose meter (Contour Next #1 ea 11/24/22 06/13/23 Rx One Meter) cyanocobalamin (vitamin B-12) 1,000 mcg subcut WEEKLY 90 days 04/03/23 06/13/23 Rx 1,000 mcg/mL injection solution #13 mL estradiol 2 mg tablet 2 mg PO DAILY 04/18/23 06/13/23 History sumatriptan succinate 100 mg tablet See Rx Instructions PO .COMPLEX 04/27/23 06/13/23 Rx #10 tabs insulin syringe-needle U-100 1 mL #500 ea 05/02/23 06/13/23 Rx 27 gauge x 1/2 (BD Insulin Syringe) cholestyramine (with sugar) 4 gram 4 g PO BID #60 ea 05/25/23 06/13/23 Rx powder for susp in a packet (Questran) dicyclomine 20 mg tablet 20 mg PO QID #120 tabs 05/25/23 06/13/23 Rx lansoprazole 30 mg capsule,delayed 30 mg PO DAILY #30 caps 05/25/23 06/13/23 Rx release metoprolol succinate 25 mg 12.5 mg PO DAILY 05/29/23 06/13/23 History tablet,extended release 24 hr Patient hx anesthesia problems: none Family hx anesthesia problems: none Results Review: All pre-operative results and documents have been reviewed as part of the pre-operative evaluation. [facility] Past Medical History Medical History Abnormal CT scan, gallbladder Allergies Anxiety Arthritis Chronic diarrhea Colon cancer screening Depression Family history of diabetes mellitus (DM) Fatty liver Headache Left upper quadrant abdominal pain Nonerosive esophageal reflux disease Vomiting Surgical History Surgical History H/O gastric bypass Family History Family History Mother Heart disease Depression Anxiety Grandparent Cerebrovascular accident Grandparent Diabetes mellitus Heart disease Social History Social History Smoking packs per day: 1 Smoking cigarettes per day: 20.0 Years smoked: 32 Smoking pack-years: 32.00 Smoking status: Current every day smoker Tobacco type: cigars Additional smoking assessment comments: QUIT CIGARETTES EARLY 2019, NOW SMOKING 3 CIGARS/DAY NOW Alcohol intake: current Alcohol use details: 3 drinks monthly Substance use: former Substance use type: does not use Lack of Transportation: No Lack of Food: Never True Current Housing: I Have Housing [place]
[2023-06-13 08:35] VITALS: BP 102/60; PULSE 63; RESP 17; O2SAT 99
[2023-06-13 08:45] VITALS: BP 108/65; PULSE 55; RESP 15; O2SAT 100
[2023-06-13 08:54] VITALS: BP 108/67; PULSE 57; RESP 15; O2SAT 100
== END 2023-06-13 09:05 | disposition home or self-care (01) ==
PROVIDERS: PCP Family Medicine; Visit Provider Internal Medicine Gastroenterology
PROC: 0DJD8ZZ Inspection of Lower Intestinal Tract, Via Natural or Artificial Opening Endoscopic (ICD-10-PCS; CPT 45378; principal; 2023-06-13 08:30)
DX: Z12.11 Encounter for screening for malignant neoplasm of colon (principal); F41.9 Anxiety disorder, unspecified; F32.A Depression, unspecified; K21.9 Gastro-esophageal reflux disease without esophagitis; K76.0 Fatty (change of) liver, not elsewhere classified; F17.290 Nicotine dependence, other tobacco product, uncomplicated; E66.01 Morbid (severe) obesity due to excess calories; Z68.41 Body mass index [BMI] 40.0-44.9, adult; Z98.84 Bariatric surgery status; Z79.4 Long term (current) use of insulin
CPT/HCPCS: 45378; J2704; J7120

== ENCOUNTER 2023-11-08 12:56 | Outpatient (CLI) | payer OTHER, SELFPAY ==
--- NOTE | 2023-11-08 15:00 | WPDPFTINT ---
PFT Procedure Performed PFT Procedure Performed Spirometry with Pre/Post Bronchodilator Plethysmography (Lung Vol) Diffusing Cap (DLCO) Flow Vol Loop PFT Interpretation This is a pulmonary function test with pre and post-bronchodilator spirometry, plethysmography and diffusing capacity. The test was performed and results interpreted in accordance with the 2019 and 2005 ATS/ERS Task Force guidelines respectively using the Global Lung Function Initiative-2012 reference equations. Patient demonstrated good effort and cooperation. Reproducibility criteria were met. The quality of the pre bronchodilator spirometry maneuver was Grade A and post bronchodilator spirometry maneuver was Grade A. Findings: Spirometry: The contour the inspiratory and expiratory flow tracing are normal. The FVC is 3.67 L, 83% predicted. The FEV1 is 3.03 L, 86% predicted. The pre bronchodilator FEV1: FVC ratio is 82%. The post bronchodilator FVC is 3.51 L, representing a 4% decrease. The post bronchodilator FEV1 is 3.00 L, representing 1% decrease. The post bronchodilator FEV1: FVC ratio is 85%. Plethysmography: The total lung capacity is 5.56 L, 91% predicted. The functional residual capacity is 2.51 L, 73% predicted. The residual volume is 1.89 L, 91% predicted. Diffusing capacity: The diffusing capacity unadjusted for hemoglobin and carboxyhemoglobin is 19.8, 77% predicted. The diffusing capacity adjusted for alveolar volume is 4.09, 95% predicted. Impression: The spirometry is normal without evidence of an obstructive abnormality. There is no significant improvement after inhaling a single dose of albuterol. The lung volumes are normal. The diffusing capacity is normal. There are no prior studies for comparison.
== END 2023-11-08 12:57 | disposition home or self-care (01) ==
PROVIDERS: PCP Family Medicine; Visit Provider Family Medicine
DX: R06.02 Shortness of breath (principal)
CPT/HCPCS: 94060; 94726; 94729

== ENCOUNTER 2023-11-24 12:47 | Outpatient (CLI) | payer OTHER, SELFPAY ==
--- NOTE | ~2023-11-24 | MR_ITS ---
EXAMINATION: MR abdomen wo/w con DATE: 11/24/2023 13:31 INDICATION: Left kidney mass. TECHNIQUE: Magnetic resonance imaging (MRI) of the abdomen was performed without and with 20 mL Multi Linda intravenous contrast. COMPARISON: Abdomen MRI 05/26/2023, CT abdomen and pelvis 05/18/2023 FINDINGS: There is diffuse hepatic steatosis. There are gallstones in the gallbladder, which is normal in size. The spleen, pancreas, and right adrenal gland are normal. There is a 19 mm mass in left adrenal glan d containing microscopic fat, consistent with an adenoma. Right kidney is normal. There is a 10 mm cy stic lesion in left kidney with minimally thickened vaughn and septum with perceived enhancement. Ther e are no dilated loops of bowel. There are no pathologically enlarged lymph nodes. There is no free i ntraperitoneal fluid. IMPRESSION: 1. Stable 10 mm Bosniak IIF cystic lesion of left kidney. Abdomen MRI without and with contrast is re commended in 6 months. Reviewed, dictated and finalized at location E. IMPRESSION: 1. Stable 10 mm Bosniak IIF cystic lesion of left kidney. Abdomen MRI without a nd with contrast is recommended in 6 months.
== END 2023-11-24 12:48 ==
LOC: MICIMG 12:47
PROVIDERS: PCP Family Medicine; Visit Provider Urology
DX: N28.89 Other specified disorders of kidney and ureter (principal)
CPT/HCPCS: 74183; A9577

== ENCOUNTER 2024-07-23 08:01 | Outpatient (CLI) | payer OTHER, SELFPAY ==
--- NOTE | ~2024-07-23 | NM_ITS ---
EXAMINATION: NM hepatobiliary wo pharm DATE: 07/23/2024 10:34 INDICATION: Left upper quadrant abdominal pain and vomiting COMPARISON: None. TECHNIQUE: 5 mCi Tc-99m mebrofenin (Choletec) was administered intravenously. Scintigraphic images o f the abdomen were obtained for one hour. At the 1 hour time point, the patient drank 8 oz Ensure, an d imaging was continued for 60 minutes. Gallbladder ejection fraction was calculated by the technolog ist. FINDINGS: There is normal clearance of radiotracer from the blood pool. There is homogeneous tracer u ptake by the liver. Activity progresses to the bowel and gallbladder. The gallbladder ejection fract ion (GBEF) is 10%. Note that with this technique, normal GBEF >= 33%. IMPRESSION: 1. Decreased gallbladder ejection fraction of 10% consistent with gallbladder dysfunction or chronic cholecystitis in the appropriate clinical setting. Reviewed, dictated and finalized at location B.
--- OUTSIDE RECORDS SUMMARY | 2024-07-23 08:13 | XMS_ITS | Patient Health Record ---
Author Organization [facility] As [employer] 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 Name Role Phone Rajan Rogers MD Primary Care Provider Unavail able Josue Ward Unavailable [phone] Migration, Provider Unavailable Unavailable Allergies No Known Allergies Results Component Value Reference Range Notes UDT Reviewed date:05/24/2024 06:06:48 PM Interpretation: Performing Lab: Notes/Report: THC N 0 - 50 ng/ml Cocaine N 0 - 300 ng/ml Amphetamine N 0 - 1000 ng/ml Buprenorphine (BUP) N 0 - 10 ng/ml Secobarbital (Bar) N 0 - 300 ng/ml Oxazepam (BZO) N 0 - 300 ng/ml 3-fayvyufind-9,8-lnalwzca-0,3-diphenylpyrrolidine (RADHA P) N 0 - 300 ng/ml Methamphetamine (MET) N 0 - 1000 ng/ml Methylenedioxymethamphetamine (MDMA) N 0 - 500 ng/ml Morphine (MOP 300/[id number]) N 0 - 300 ng/ml Methadone (MTD) N 0 - 300 ng/ml Phencyclidine (PCP) N 0 - 25 ng/ml Nortriptyline (TCA) N 0 - 1000 ng/ml Oxycodone N 0 - 300 ng/ml x N 0 - 300 ng/ml Reason For Referral No Information Medications Medication SIG (Take, Route, Frequency, Duration) Notes Start Date End Date Status MICROLET MISCELLANEOUS *Reorder from [facility] for eRx and Interaction Alerts* 08/18/2023 Active SUMAtriptan Succinate 100 MG Oral 08/18/2023 Active Contour Next One MISCELLANEOUS 08/18/2023 Active Metoprolol Succinate ER 25 MG Oral 08/18/2023 Active Hyoscyamine Sulfate 0.125 MG Oral 08/18/2023 Active Colestipol HCl 1 GM Oral 08/18/2023 Not-Taking QUEtiapine Fumarate ER 300 MG TAKE 1 TABLET BY MOUTH DAILY for 90 Active ZyrTEC Allergy 10 MG Oral 08/18/2023 Active Contour Blood Glucose System w/Device In Vitro 08/18/2023 Active SEROquel XR 300 MG 1 tablet in the evening Oral Once a day for 90 days Active Vitamin D3 Adult Gummies 25 MCG (1000 UT) Oral 08/18/2023 Active traZODone HCl 50 MG 0.5 to 1 tablet at bedtime Oral Once a day for 90 days As needed Active Dicyclomine HCl 20 MG Oral 08/18/2023 Not-Taking Lansoprazole 30 MG Oral 08/18/2023 Active Cyanocobalamin 1000 MCG/ML Injection 08/18/2023 Active buPROPion HCl ER (XL) 300 MG 1 tablet every morning Oral Once a day for 90 days Active Estradiol 2 MG Oral 08/18/2023 Acti ve clonazePAM 0.5 MG 1 tablet Oral Once a day for 30 days As needed Active Immunizations Vaccine Route Administration Date Status Comme nts Pfizer Biontech Covid-19 Vac cine 2nd dose Unknown 06/30/2020 Administered Pfizer Biontech Covid-19 Vac cine 2nd dose Unknown 07/21/2020 Administered Pfizer Biontech Covid-19 Vac cine 2nd dose Unknown 01/24/2021 Administered Pfizer Biontech Covid-19 Vac cine 2nd dose Unknown 10/01/2021 Administered Pfizer Biontech Covid-19 Vac cine 2nd dose Unknown 01/09/2022 Administered Novel [id number], preservative free Unknown 02/08/2018 Administered Influenza, injectable, MDCK, preservative free Unknown 02/22/2017 Administered Influenza virus vaccine, quadrivalent (IIV4), split virus, 0.25 mL dosage Unknown 02/16/2018 Administered Influenza virus vaccine, quadrivalent (IIV4), split virus, 0.25 mL dosage Unknown 02/09/2019 Administered Influenza virus vaccine, quadrivalent (IIV4), split virus, 0.25 mL dosage Unknown 12/31/2019 Administered Social History Sex Assigned At : Social History Observation Description Sex Assigned At Female Problems Problem Type SNOMED Code ICD Code Onset Dates Problem Status W/U Status Risk Notes Problem Bipolar I disorder, most recent episode mixed, in remission (74902646) Bipolar disorder, currently in remission, most recent episode unspecified (F31.70) Active confirmed Problem Generalized anxiety disorder (09229592) Generalized anxiety disorder (F41.1) Active confirmed Problem Insomnia 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 (38978007) Insomnia due to other mental disorder (F51.05) Active confirmed Vital Signs Heart Rate 80 /min 05/24/2024 Height-cm 180.34 cm 05/24/2024 Blood pressure diastolic 85 mm Hg 05/24/2024 Weight-kg 137.44 kg 05/24/2024 Height 71.00 in 05/24/2024 Blood pressure systolic 122 mm Hg 05/24/2024 Weight 303 lbs 05/24/2024 BMI 42.26 kg/m2 05/24/2024 Encounters Encounter Location Date Provider Diagnosis [facility] [address] [address] 07/24/2023 Provider Migration Generalized anxiety disorder F41.1 [facility] [address] [address] 08/18/2023 Josue Ward Generalized anxiety disorder F41.1 ; Bipolar disorder, currently in remission, most recent episode unspecified F31.70 ; Insomnia due to other mental disorder F51.05 and Body mass index (BMI) 40.0-44.9, adult Z68.41 [facility] [address] [address] 12/18/2023 Josue Ward Generalized anxiety disorder F41.1 ; Insomnia due to other mental disorder F51.05 ; Other halfway (current) drug therapy Z79.899 and Bipolar disorder, currently in remission, most recent episode unspecified F31.70 [facility] [address] [address] 04/04/2024 Josue Ward Generalized anxiety disorder F41.1 ; Insomnia due to other mental disorder F51.05 ; Other halfway (current) drug therapy Z79.899 and Bipolar disorder, currently in remission, most recent episode unspecified F31.70 [facility] [address] [address] 05/24/2024 Josue Ward Generalized anxiety disorder F41.1 ; Insomnia due to other mental disorder F51.05 ; Other halfway (current) drug therapy Z79.899 and Bipolar disorder, currently in remission, most recent episode unspecified F31.70 [facility] [employer] [facility] [address] [facility] [address] [address] 08/14/2023 Provider Migration [facility] [place] [id number] [facility] [address] [address] 08/29/2023 Provider [facility] [address] [facility] [address] [address] [address] 09/16/2023 Provider [facility] [address] [facility] [address] [address] 09/17/2023 Provider [facility] [address] [facility] [address] [address] 12/28/2023 Josue Ward [facility] [place] [id number] [facility] [address] [address] 12/29/2023 Josue Ward Assessments Encounter Date Diagnosis (ICD Code) Assessment Notes Treatment Notes Treatment Clinical Notes Section Notes 07/24/2023 Generalized anxiety disorder (ICD-10 - F41.1) 08/18/2023 Bipolar disorder, currently in remission, most recent episode unspecified (ICD-10 - F31.70) 08/18/2023 Generalized anxiety disorder (ICD-10 - F41.1) 08/18/2023 Insomnia due to other mental disorder (ICD-10 - F51.05) 08/18/2023 Body mass index (BMI) 40.0-44.9, adult (ICD-10 - Z68.41) 12/18/2023 Generalized anxiety disorder (ICD-10 - F41.1) Clonazepam 0.5mg od prn 1. Bipolar Disorder: - Patient reports feeling stressed and on edge, but denies depressive symptoms. - Patient is concerned about potential hypomanic symptoms, including irritability, poor sleep, and increased spending. - Currently on quetiapine ER 300 mg and bupropion XL 300 mg. Plan: - Continue quetiapine ER 300 mg daily. - Continue bupropion XL 300 mg daily. - Monitor for any worsening of symptoms and consider adjusting medication if needed. - Encourage the patient to call if they feel they are entering a manic episode. 2. Insomnia: - Patient reports difficulty sleeping, waking up frequently, and feeling unrested. - Currently taking trazodone 50 mg as needed. Plan: - Continue trazodone 50 mg, half to one tablet as needed for sleep. - Encourage good sleep hygiene practices, such as limiting caffeine intake and maintaining a consistent sleep schedule. 3. Anxiety: - Patient reports constant worrying and occasional use of clonazepam 0.5 mg. Plan: - Continue clonazepam 0.5 mg daily as needed for anxiety. - Reassure the patient that they can take clonazepam daily during an episode, as long as it is not excessive and they are able to discontinue use when appropriate. - Consider counseling or therapy to address anxiety and stress management. 4. 5. Pharmacy: - Patient prefers to use [facility] pharmacy for medications. Plan: - Send all medication refills to [facility] pharmacy as requested by the patient. Follow-up: - Schedule a follow-up appointment in three months. - Encourage the patient to call if they have any concerns or worsening symptoms before the next appointment. 12/18/2023 Insomnia due to other mental disorder (ICD-10 - F51.05) Trazodone 0.5 to 1 tablet hs prn 1. Bipolar Disorder: - Patient reports feeling stressed and on edge, but denies depressive symptoms. - Patient is concerned about potential hypomanic symptoms, including irritability, poor sleep, and increased spending. - Currently on quetiapine ER 300 mg and bupropion XL 300 mg. Plan: - Continue quetiapine ER 300 mg daily. - Continue bupropion XL 300 mg daily. - Monitor for any worsening of symptoms and consider adjusting medication if needed. - Encourage the patient to call if they feel they are entering a manic episode. 2. Insomnia: - Patient reports difficulty sleeping, waking up frequently, and feeling unrested. - Currently taking trazodone 50 mg as needed. Plan: - Continue trazodone 50 mg, half to one tablet as needed for sleep. - Encourage good sleep hygiene practices, such as limiting caffeine intake and maintaining a consistent sleep schedule. 3. Anxiety: - Patient reports constant worrying and occasional use of clonazepam 0.5 mg. Plan: - Continue clonazepam 0.5 mg daily as needed for anxiety. - Reassure the patient that they can take clonazepam daily during an episode, as long as it is not excessive and they are able to discontinue use when appropriate. - Consider counseling or therapy to address anxiety and stress management. 4. 5. Pharmacy: - Patient prefers to use [facility] pharmacy for medications. Plan: - Send all medication refills to [facility] pharmacy as requested by the patient. Follow-up: - Schedule a follow-up appointment in three months. - Encourage the patient to call if they have any concerns or worsening symptoms before the next appointment. 04/04/2024 Generalized anxiety disorder (ICD-10 - F41.1) Clonazepam 0.5mg od prn 1. Anxiety - Patient reports constant anxiety related to life and work, difficulty being in a vehicle with someone else driving, and feeling on edge every day. - Anxiety may be exacerbated by the recent passing of her mother and dealing with her estate. Plan: - Increase sertraline dosage to 400 mg temporarily to help with irritability and mood symptoms. - Reevaluate the patient's response to the increased sertraline dosage in one month. - Encourage the patient to consider telehealth counseling services through her work to address anxiety and potential unresolved grief. 2. Sleep disturbance - Patient reports difficulty falling asleep due to anxiety but sleeps 7-8 hours once asleep. Plan: - Continue using trazodone as needed for sleep. - Monitor the patient's sleep patterns and adjust medications as necessary during follow-up visits. 3. Grief and unresolved emotions - Patient expresses concerns about not fully grieving her mother's passing and feeling guilty for not grieving as hard as she thought she would. Plan: - Encourage the patient to seek counseling to address unresolved grief and emotions related to her mother's passing. - Support the patient in setting healthy boundaries with family members and focusing on her own well-being. 4. Irritability - Patient reports increased irritability, nitpicking at her , and feeling frustrated with others. Plan: - Increase sertraline dosage to 400 mg temporarily to help with irritability and mood symptoms. - Reevaluate the patient's response to the increased sertraline dosage in one month. - Encourage the patient to seek counseling to address irritability and potential underlying emotional issues. 5. Family dynamics and boundaries - Patient is working on setting boundaries with her sister and other family members, as well as adjusting to her new role in the family after her mother's passing. Plan: - Encourage the patient to continue setting healthy boundaries with family members and focusing on her own well-being. - Recommend counseling to help the patient navigate family dynamics and establish healthy boundaries. Follow-up in one month to assess the patient's response to the increased sertraline dosage and discuss any ongoing concerns. 05/24/2024 Generalized anxiety disorder (ICD-10 - F41.1) Clonazepam 0.5mg od prn 05/24/2024 Insomnia due to other mental disorder (ICD-10 - F51.05) Trazodone 0.5 to 1 tablet hs prn 04/04/2024 Insomnia due to other mental disorder (ICD-10 - F51.05) Trazodone 0.5 to 1 tablet hs prn 1. Anxiety - Patient reports constant anxiety related to life and work, difficulty being in a vehicle with someone else driving, and feeling on edge every day. - Anxiety may be exacerbated by the recent passing of her mother and dealing with her estate. Plan: - Increase sertraline dosage to 400 mg temporarily to help with irritability and mood symptoms. - Reevaluate the patient's response to the increased sertraline dosage in one month. - Encourage the patient to consider telehealth counseling services through her work to address anxiety and potential unresolved grief. 2. Sleep disturbance - Patient reports difficulty falling asleep due to anxiety but sleeps 7-8 hours once asleep. Plan: - Continue using trazodone as needed for sleep. - Monitor the patient's sleep patterns and adjust medications as necessary during follow-up visits. 3. Grief and unresolved emotions - Patient expresses concerns about not fully grieving her mother's passing and feeling guilty for not grieving as hard as she thought she would. Plan: - Encourage the patient to seek counseling to address unresolved grief and emotions related to her mother's passing. - Support the patient in setting healthy boundaries with family members and focusing on her own well-being. 4. Irritability - Patient reports increased irritability, nitpicking at her , and feeling frustrated with others. Plan: - Increase sertraline dosage to 400 mg temporarily to help with irritability and mood symptoms. - Reevaluate the patient's response to the increased sertraline dosage in one month. - Encourage the patient to seek counseling to address irritability and potential underlying emotional issues. 5. Family dynamics and boundaries - Patient is working on setting boundaries with her sister and other family members, as well as adjusting to her new role in the family after her mother's passing. Plan: - Encourage the patient to continue setting healthy boundaries with family members and focusing on her own well-being. - Recommend counseling to help the patient navigate family dynamics and establish healthy boundaries. Follow-up in one month to assess the patient's response to the increased sertraline dosage and discuss any ongoing concerns. 12/18/2023 Other halfway (current) drug therapy (ICD-10 - Z79.899) 1. Bipolar Disorder: - Patient reports feeling stressed and on edge, but denies depressive symptoms. - Patient is concerned about potential hypomanic symptoms, including irritability, poor sleep, and increased spending. - Currently on quetiapine ER 300 mg and bupropion XL 300 mg. Plan: - Continue quetiapine ER 300 mg daily. - Continue bupropion XL 300 mg daily. - Monitor for any worsening of symptoms and consider adjusting medication if needed. - Encourage the patient to call if they feel they are entering a manic episode. 2. Insomnia: - Patient reports difficulty sleeping, waking up frequently, and feeling unrested. - Currently taking trazodone 50 mg as needed. Plan: - Continue trazodone 50 mg, half to one tablet as needed for sleep. - Encourage good sleep hygiene practices, such as limiting caffeine intake and maintaining a consistent sleep schedule. 3. Anxiety: - Patient reports constant worrying and occasional use of clonazepam 0.5 mg. Plan: - Continue clonazepam 0.5 mg daily as needed for anxiety. - Reassure the patient that they can take clonazepam daily during an episode, as long as it is not excessive and they are able to discontinue use when appropriate. - Consider counseling or therapy to address anxiety and stress management. 4. 5. Pharmacy: - Patient prefers to use [facility] pharmacy for medications. Plan: - Send all medication refills to [facility] pharmacy as requested by the patient. Follow-up: - Schedule a follow-up appointment in three months. - Encourage the patient to call if they have any concerns or worsening symptoms before the next appointment. 04/04/2024 Other halfway (current) drug therapy (ICD-10 - Z79.899) 1. Anxiety - Patient reports constant anxiety related to life and work, difficulty being in a vehicle with someone else driving, and feeling on edge every day. - Anxiety may be exacerbated by the recent passing of her mother and dealing with her estate. Plan: - Increase sertraline dosage to 400 mg temporarily to help with irritability and mood symptoms. - Reevaluate the patient's response to the increased sertraline dosage in one month. - Encourage the patient to consider telehealth counseling services through her work to address anxiety and potential unresolved grief. 2. Sleep disturbance - Patient reports difficulty falling asleep due to anxiety but sleeps 7-8 hours once asleep. Plan: - Continue using trazodone as needed for sleep. - Monitor the patient's sleep patterns and adjust medications as necessary during follow-up visits. 3. Grief and unresolved emotions - Patient expresses concerns about not fully grieving her mother's passing and feeling guilty for not grieving as hard as she thought she would. Plan: - Encourage the patient to seek counseling to address unresolved grief and emotions related to her mother's passing. - Support the patient in setting healthy boundaries with family members and focusing on her own well-being. 4. Irritability - Patient reports increased irritability, nitpicking at her , and feeling frustrated with others. Plan: - Increase sertraline dosage to 400 mg temporarily to help with irritability and mood symptoms. - Reevaluate the patient's response to the increased sertraline dosage in one month. - Encourage the patient to seek counseling to address irritability and potential underlying emotional issues. 5. Family dynamics and boundaries - Patient is working on setting boundaries with her sister and other family members, as well as adjusting to her new role in the family after her mother's passing. Plan: - Encourage the patient to continue setting healthy boundaries with family members and focusing on her own well-being. - Recommend counseling to help the patient navigate family dynamics and establish healthy boundaries. Follow-up in one month to assess the patient's response to the increased sertraline dosage and discuss any ongoing concerns. 05/24/2024 Other halfway (current) drug therapy (ICD-10 - Z79.899) 12/18/2023 Bipolar disorder, currently in remission, most recent episode unspecified (ICD-10 - F31.70) Quetiapine er 300mg, Bupropion xl 300mg 1. Bipolar Disorder: - Patient reports feeling stressed and on edge, but denies depressive symptoms. - Patient is concerned about potential hypomanic symptoms, including irritability, poor sleep, and increased spending. - Currently on quetiapine ER 300 mg and bupropion XL 300 mg. Plan: - Continue quetiapine ER 300 mg daily. - Continue bupropion XL 300 mg daily. - Monitor for any worsening of symptoms and consider adjusting medication if needed. - Encourage the patient to call if they feel they are entering a manic episode. 2. Insomnia: - Patient reports difficulty sleeping, waking up frequently, and feeling unrested. - Currently taking trazodone 50 mg as needed. Plan: - Continue trazodone 50 mg, half to one tablet as needed for sleep. - Encourage good sleep hygiene practices, such as limiting caffeine intake and maintaining a consistent sleep schedule. 3. Anxiety: - Patient reports constant worrying and occasional use of clonazepam 0.5 mg. Plan: - Continue clonazepam 0.5 mg daily as needed for anxiety. - Reassure the patient that they can take clonazepam daily during an episode, as long as it is not excessive and they are able to discontinue use when appropriate. - Consider counseling or therapy to address anxiety and stress management. 4. 5. Pharmacy: - Patient prefers to use [facility] pharmacy for medications. Plan: - Send all medication refills to [facility] pharmacy as requested by the patient. Follow-up: - Schedule a follow-up appointment in three months. - Encourage the patient to call if they have any concerns or worsening symptoms before the next appointment. 05/24/2024 Bipolar disorder, currently in remission, most recent episode unspecified (ICD-10 - F31.70) Quetiapine er 300mg, Bupropion xl 300mg 04/04/2024 Bipolar disorder, currently in remission, most recent episode unspecified (ICD-10 - F31.70) Quetiapine er 400mg, Bupropion xl 300mg 1. Anxiety - Patient reports constant anxiety related to life and work, difficulty being in a vehicle with someone else driving, and feeling on edge every day. - Anxiety may be exacerbated by the recent passing of her mother and dealing with her estate. Plan: - Increase sertraline dosage to 400 mg temporarily to help with irritability and mood symptoms. - Reevaluate the patient's response to the increased sertraline dosage in one month. - Encourage the patient to consider telehealth counseling services through her work to address anxiety and potential unresolved grief. 2. Sleep disturbance - Patient reports difficulty falling asleep due to anxiety but sleeps 7-8 hours once asleep. Plan: - Continue using trazodone as needed for sleep. - Monitor the patient's sleep patterns and adjust medications as necessary during follow-up visits. 3. Grief and unresolved emotions - Patient expresses concerns about not fully grieving her mother's passing and feeling guilty for not grieving as hard as she thought she would. Plan: - Encourage the patient to seek counseling to address unresolved grief and emotions related to her mother's passing. - Support the patient in setting healthy boundaries with family members and focusing on her own well-being. 4. Irritability - Patient reports increased irritability, nitpicking at her , and feeling frustrated with others. Plan: - Increase sertraline dosage to 400 mg temporarily to help with irritability and mood symptoms. - Reevaluate the patient's response to the increased sertraline dosage in one month. - Encourage the patient to seek counseling to address irritability and potential underlying emotional issues. 5. Family dynamics and boundaries - Patient is working on setting boundaries with her sister and other family members, as well as adjusting to her new role in the family after her mother's passing. Plan: - Encourage the patient to continue setting healthy boundaries with family members and focusing on her own well-being. - Recommend counseling to help the patient navigate family dynamics and establish healthy boundaries. Follow-up in one month to assess the patient's response to the increased sertraline dosage and discuss any ongoing concerns. 05/24/2024 Other 1. Bipolar disorder: - Patient reports improvement in anxiety and depression symptoms but is experiencing excessive tiredness after increasing Seroquel XR to 400 mg. Plan: - Decrease Seroquel XR to 300 mg daily and monitor for improvement in tiredness. 2. Anxiety: - Patient reports manageable anxiety levels, especially when setting boundaries and driving alone. Plan: - Continue Clonazepam as needed for anxiety. - Encourage the patient to maintain healthy boundaries and coping strategies. 3. Depression: - Patient reports no current depressive symptoms. Plan: - Continue Bupropion XR 300 mg daily for depression. - Monitor for any changes in mood. 4. Sleep disturbances: - Patient has trazodone 50 mg at bedtime as needed for sleep. Plan: - Continue trazodone as needed. - Monitor sleep quality. 5. Menopause symptoms: - Patient reports possible menopausal symptoms and has recently had blood work done by a new primary care physician. Plan: - Await blood work results. - Coordinate care with the primary care physician to address any hormonal imbalances or menopause-relate d issues. 6. Family and interpersonal stressors: - Patient is managing stress related to family dynamics and the passing of loved ones. Plan: - Encourage the patient to continue utilizing healthy coping strategies. - Consider therapy if needed for additional support. Follow-up: - Schedule a follow-up appointment in 2 months to assess the patient's response to the medication adjustments and overall mental health status. Plan Of Treatment Next Appt Details Provider Name:Josue lamb, 08/16/2024 08:45:00 AM, [address], [facility], [place], [address], Insurance Providers Payer Name Payer Address Payer Phone Subscriber Number Group Number Insured Name Patient Relationship to Insured Coverage Start Date Coverage End Date [employer] Pos [address] [place] [address] [id number] NANCY PIERRE Self - patient is the insured Medical (General) History Medical History History ICD Code Problems: Bipolar disorder in remission Body mass index 30+ - obesity Generalized anxiety disorder 

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
--- OUTSIDE RECORDS SUMMARY | 2024-07-23 08:13 | XMS_ITS | Referral Summary ---
Author Organization [facility] Address [address] [facility] [address] [place] [phone] Phone Care Team Providers Care Manager Music Name Role Phone Misdavid Mat AMBROSE Primary Care Provider [phone] Allergies No known active allergies Medications omeprazole (PriLOSEC) 20 mg capsule Take 1 capsule (20 mg total) by mouth daily 30 capsule 03/28/2022 Active ibuprofen (ADVIL,MOTRIN) 600 mg tablet Take 1 tablet (600 mg total) by mouth every 6 (six) hours as needed for pain 21 tablet 03/28/2022 Active prochlorperazin e (COMPAZINE) 10 mg tabletIndicatio ns:Prevention of Chemotherapy-In duced Nausea and Vomiting Take 1 tablet (10 mg total) by mouth 2 (two) times a day as needed for nausea or vomiting 10 tablet 03/28/2022 Active Social History Tobacco Use Types Packs/Day Years Used Date Smoking Tobacco: Every Day Cigars Tobacco Cessation:Ready to Q uit: Not Asked; Counseling Given: Not Answered Personal Safety Answer Date Recorded Getting School Help Needed Not on file 05/06 Comments No Sex and Gender Information Value Date Recorded Sex Assigned at Not on file Legal Sex Female 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 Gender Identity Female 04/15/2020 7:20 AM ICE GUARD INSPECTOR Sexual Orientation Not on file Last Filed Vital Signs Vital Sign Reading Time Taken Comments Blood Pressure 143/83 03/28/2022 10:23 AM ICE GUARD INSPECTOR Pulse 62 03/28/2022 10:23 AM ICE GUARD INSPECTOR Temperature 36.6 C (97.9 F) 03/28/2022 10:23 AM ICE GUARD INSPECTOR Respiratory Rate 20 03/28/2022 10:23 AM ICE GUARD INSPECTOR Oxygen Saturation 96% 03/28/2022 10:23 AM ICE GUARD INSPECTOR Inhaled Oxygen Concentration - - Weight 117.9 kg (260 lb) 03/28/2022 10:23 AM ICE GUARD INSPECTOR Height 180.3 cm (5' 11 ) 03/28/2022 10:23 AM ICE GUARD INSPECTOR Body Mass Index 36.26 03/28/2022 10:23 AM ICE GUARD INSPECTOR Plan of Treatment Not on file Procedures Procedure Name Priority Date/Time Associated Diagnosis Comments SCREENING MAMMOGRAM BILATERAL W RICKIE Schedule Routine, Read Routine (OP Routine) 08/09/2023 7:38 AM CDT Screening mammogram, encounter for from Last 3 Months or Most Recently Relevant to Health Maintenance Results * Screening Mammogram Bilateral W Rickie (08/09/2023 7:38 AM CDT) Anatomical Region Laterality Modality Breast Bilateral Mammography Narrative 08/10/2023 11:55 AM CDT Mammogram Technique: Bilateral Digital Breast Tomosynthesis, Bilateral C-view 2D Screening mammogram. Views obtained: bilateral craniocaudal and bilateral mediolateral oblique. Computer Aided Detection was performed. Mammogram Findings: The present examination has been compared to prior imaging studies performed at [facility] on 04/15/2020, 04/27/2021 and 07/29/2022. The breasts are almost entirely fatty. There is no suspicious abnormality in either breast. Impression: There is no mammographic evidence of malignancy. Annual screening mammography is recommended. OVERALL FINAL ASSESSMENT: BI-RADS CATEGORY 1: Negative. Procedure Note Georgie Jimenez MD - 08/10/2023 Mammogram Technique: Bilateral Digital Breast Tomosynthesis, Bilateral C-view 2D Screening mammogram. Views obtained: bilateral craniocaudal and bilateral mediolateral oblique. Computer Aided Detection was performed. Mammogram Findings: The present examination has been compared to prior imaging studies performed at [facility] on 04/15/2020, 04/27/2021 and 07/29/2022. The breasts are almost entirely fatty. There is no suspicious abnormality in either breast. Impression: There is no mammographic evidence of malignancy. Annual screening mammography is recommended. OVERALL FINAL ASSESSMENT: BI-RADS CATEGORY 1: Negative. us Self Screening Mammogram IMG MAMMO PROCEDURES Fi nal Result from Last 3 Months or Most Recently Relevant to Health Maintenance Insurance Care Teams Manager Music Relationship Specialty Start Date End Date Mat Sifuentes DO PCP - General Family Medicine 04/05/22
--- OUTSIDE RECORDS SUMMARY | 2024-07-23 08:13 | XMS_ITS ---
Author Organization [facility] Address [address] [facility] [address] [place] [address] Care Team Providers Care Green End Worker Name Role Phone Rajan Rogers MD Primary Care Provider Josue Roth Unavailable [phone] Social History Sex Assigned At : Social History Observation Description Sex Assigned At Female Encounters Encounter Location Date Provider Diagnosis [facility] [employer] [place] [id number] [facility] [address] [facility] [address] [place] [address] 05/08/2024 Josue Ward Plan Of Treatment Next Appt Details Provider Name:Josue lamb, 08/16/2024 08:45:00 AM, [address], [facility] [address], [place], [address], Progress Notes * NANCY PIERRE MDOB:1975 (48 yo F)Acc No.[id number]:05/08/2024 Patient: Angel CHADWICKNANCY Provider: MINNA MULLEN :1975 A ge:48 Y S ex:Female Date:05/08/2024 Address:[address] Pcp:Rajan Rogers MD Subjective: * Chief Complaints: * * Medical History: Objective: * Vitals: Assessment: Plan: * Treatment: * Billing Information: * Visit Code: * Procedure Codes: * Electronic signature of MINNA Montejo on 07/23/2024 at 08:13 AM CDT Sign off status: Pending * Provider: MINNA MULLEN Date: 0 05/08/2024 Generated for Fran monterroso/Xavi/Tricia on: 0 07/23/2024 08:13 AM CDT
--- OUTSIDE RECORDS SUMMARY | 2024-07-23 08:13 | XMS_ITS | Clinical Summary ---
Author Organization [facility] Address [address] [facility] [address] [place] [address] Phone Care Team Providers Care Helmet Coverer Name Role Phone Misdavid Mat AMBROSE Primary Care Provider [phone] Allergies No known active allergies Medications omeprazole [...] on file Legal Sex Female 11:29 AM INLAYER Gender Identity Female 04/15/2020 7:20 AM INLAYER Sexual Orientation Not on file Obstetrics History Last Filed Vital Signs Vital Sign Reading Time Taken Comments Blood Pressure 143/83 03/28/2022 10:23 AM INLAYER Pulse 62 03/28/2022 10:23 AM INLAYER Temperature 36.6 C (97.9 F) 03/28/2022 10:23 AM INLAYER Respiratory Rate 20 03/28/2022 10:23 AM INLAYER Oxygen Saturation 96% 03/28/2022 10:23 AM INLAYER Inhaled Oxygen Concentration - - Weight 117.9 kg (260 lb) 03/28/2022 10:23 AM INLAYER Height 180.3 cm (5' 11 ) 03/28/2022 10:23 AM INLAYER Body Mass Index 36.26 03/28/2022 10:23 AM INLAYER Plan of Treatment Health Maintenance Due Date Last Done Comments Cervical Cancer Screening 1975 Colon Cancer Screening-Colonoscopy 1975 Depression Screening 1975 Hepatitis C Screening 1975 DTaP/Tdap/Td Vaccine (1 - Tdap) 12/07/1986 Hepatitis B Screening 12/07/1993 Regular Well Visit/Exam 18-64 12/07/1993 Pneumococcal vaccine <65 (1 of 2 - PCV) 12/07/1994 Influenza Vaccine (#1) 2023 9, 02/08/2018, 02/22/2017 Breast Cancer Screening-Mammogram 08/08/2024 08/09/2023, 07/29/2022, 07/29/2021, Additional history exists Procedures Procedure Name Priority Date/Time Associated Diagnosis [...] compared to prior imaging studies performed at [facility] on 04/15/2020, 04/27/2021 and 07/29/2022. The breasts [...] compared to prior imaging studies performed at [facility] on 04/15/2020, 04/27/2021 and 07/29/2022. The breasts are almost entirely fatty. There is no suspicious abnormality in either breast. Impression: There is no mammographic evidence of malignancy. Annual screening mammography is recommended. OVERALL FINAL ASSESSMENT: BI-RADS CATEGORY 1: Negative. us Self Screening Mammogram IMG MAMMO PROCEDURES Fi nal Result from Last 3 Months or Most Recently Relevant to Health Maintenance Insurance [facility] HMO Care Teams Helmet Coverer Relationship Specialty Start Date End Date Mat Sifuentes DO PCP - General Family Medicine 04/05/22
--- OUTSIDE RECORDS SUMMARY | 2024-07-23 08:13 | XMS_ITS ---
Author Organization [facility] As Local Reputation Address [address] [place] [address] Care Team Providers Care Associate Consulting Engineer Name Role Phone Rajan Rogers MD Primary Care Provider Unavail able Josue Ward Unavailable [phone] Allergies No Known Allergies REASON FOR VISIT follow up visit, medication evaluation. Medications Medication SIG (Take, Route, Frequency, Duration) Notes Start Date End Date Status Estradiol 2 MG Oral 08/18/2023 Acti ve ZyrTEC Allergy 10 MG Oral 08/18/2023 Active clonazePAM 0.5 MG 1 tablet Oral Once a day for 30 days As needed 04/04/2024 Active Hyoscyamine Sulfate 0.125 MG Oral 08/18/2023 Active Colestipol HCl 1 GM Oral 08/18/2023 Active SEROquel XR 400 MG 1 tablet in the evening Oral Once a day for 90 days Active traZODone HCl 50 MG 0.5 to 1 tablet at bedtime Oral Once a day for 90 days As needed Active Contour Blood Glucose System w/Device In Vitro 08/18/2023 Active QUEtiapine Fumarate ER 300 MG TAKE 1 TABLET BY MOUTH DAILY for 90 Active buPROPion HCl ER (XL) 300 MG 1 tablet every morning Oral Once a day for 90 days Active MICROLET MISCELLANEOUS *Reorder from [employer] for eRx and Interaction Alerts* 08/18/2023 Active SUMAtriptan Succinate 100 MG Oral 08/18/2023 Active Dicyclomine HCl 20 MG Oral 08/18/2023 Active Contour Next One MISCELLANEOUS 08/18/2023 Active Vitamin D3 Adult Gummies 25 MCG (1000 UT) Oral 08/18/2023 Active Lansoprazole 30 MG Oral 08/18/2023 Active Cyanocobalamin 1000 MCG/ML Injection 08/18/2023 Active Metoprolol Succinate ER 25 MG Oral 08/18/2023 Active Social History Sex Assigned At : Social History Observation Description Sex Assigned At Female Problems Problem Type SNOMED Code ICD Code Onset Dates Problem Status W/U Status Risk Notes Problem Generalized anxiety disorder (73230771) Generalized anxiety disorder (F41.1) Active confirmed Problem Insomnia 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 (19861895) Insomnia due to other mental disorder (F51.05) Active confirmed Problem Bipolar I disorder, most recent episode mixed, in remission (39292924) Bipolar disorder, currently in remission, most recent episode unspecified (F31.70) Active confirmed Vital Signs Blood pressure systolic 124 mm Hg 04/04/20 24 Blood pressure diastolic 82 mm Hg 024 Heart Rate 73 /min 04/04/2024 Height 71.00 in 04/04/2024 Weight 301.2 lbs 04/04/2024 BMI 42 kg/m2 04/04/2024 Height-cm 180.34 cm 04/04/2024 Weight-kg 136.62 kg 04/04/2024 Encounters Encounter Location Date Provider Diagnosis [facility] [place] [address] [facility] [address] [place] [address] 04/04/2024 Josue Ward Generalized anxiety disorder F41.1 ; Insomnia due to other mental disorder F51.05 ; Other senior care (current) drug therapy Z79.899 and Bipolar disorder, currently in remission, most recent episode unspecified F31.70 Assessments Encounter Date Diagnosis (ICD Code) Assessment Notes Treatment Notes Treatment Clinical Notes Section Notes 04/04/2024 Generalized anxiety disorder (ICD-10 - F41.1) [...] sertraline dosage and discuss any ongoing concerns. 04/04/2024 Insomnia due to other mental disorder [...] sertraline dosage and discuss any ongoing concerns. 04/04/2024 Other senior care (current) drug therapy (ICD-10 - Z79.899) 1. [...] sertraline dosage and discuss any ongoing concerns. 04/04/2024 Bipolar disorder, currently in remission, most [...] sertraline dosage and discuss any ongoing concerns. Plan Of Treatment Medication Medication Name Sig Start Date Stop Date Notes clonazePAM 0.5 MG 1 tablet Oral Once a day for 30 days 04/04/2024 SEROquel XR 400 MG 1 tablet in the even ing [...] remission, most recent episode unspecified Quetiapine er 400mg, Bupropion xl 300mg Next Appt Details Follow Up: 4 Weeks, Reason: f/u bipolar d/o, anxiety Provider Name:Josue lamb, 08/16/2024 08:45:00 AM, [address], [address], [place], [address], Progress Notes * NANCY PIERRE MDOB:1975 (48 yo F)Acc No.[id number]:04/04/2024 Patient: NANCY GUTHRIE Provider: MINNA MULLEN :1975 A ge:48 Y S ex:Female Date:04/04/2024 Address:[facility] [address] [facility] Pcp:Mat Sifuentes DO Subjective: * Chief Complaints: * F ollow up visit, medication evaluation. * HPI: D epression screening: the note is transcribed using speech recognition software. It is a reflection of a visit with the patient. It might have some inaccuracy, including medication names and transcribing errors, though efforts have been made to correct them. Chief complaint- Anxiety, irritability. The patient reports feeling constantly anxious about life and work, but not depressed. She is struggling with being in a vehicle with someone else driving and has experienced increased irritability and being on edge every day. The patient denies having sad thoughts or getting into confrontations but admits to nitpicking at her . She has tried self-care activities such as a spa day and taking time off work but has not found relief from her anxiety. The patient reports no change in sleep duration, still sleeping 7-8 hours a night, but has difficulty falling asleep due to anxiety. She denies any manic symptoms and states that she is not making rash decisions or engaging in impulsive behaviors. The patient is experiencing stress from dealing with her mother's estate and trying to be the peacemaker between her siblings. The patient has a history of grief and depression and was concerned about her reaction to her mother's passing. However, she has not experienced the emotional breakdown she expected and feels her anxiety is waiting for that moment. She is considering telehealth counseling services through her work and has reconnected with childhood friends for support. The patient is learning to set boundaries and not take on others' problems, which is a new and unsettling experience for her. She has had to establish boundaries with her sister regarding financial support and has experienced resentment from doing things out of obligation. The patient is willing to try an increase in her sertraline dosage to help with irritability and mood symptoms but is concerned about potential effects on her sexual drive. PHQ-9 L ittle interest or pleasure in doing things M ore than half the days, F eeling down, depressed, or hopeless S everal days, T rouble falling or staying asleep, or sleeping too much S everal days, F eeling tired or having little energy N early every day, P oor appetite or overeating N ot at all, F eeling bad about yourself or that you are a failure, or have let yourself or your family down N ot at all, T rouble concentrating on things, such as reading the newspaper or watching television N early every day, M oving or speaking so slowly that other people could have noticed; or the opposite, being so fidgety or restless that you have been moving around a lot more than usual N ot at all,?Thoughts that you would be better off or of hurting yourself in some way N ot at all, Total Score 1 0, I nterpretation M oderate Depression. I ntervention D epression Screening Findings P ositve, F ollow-Up for Depression M entva health treatment assessment, Patient follow-up to return when and if necessary, S uicide Risk Assessment Performed?04/04/2024 , A dditional Evaluation for Depression P sychiatric interview and evaluation, N ernesto of the standardized tool used for adult depression screening: P [facility] Health Questionnaire (PHQ-9). H istory of Presenting Problem: Anxiety f eels anxious constantly, feels overwhelmed. Struggling being in a vehicle with someone else driving. . D epression g rief with mothers passing away in November 2023. M ood lability B ipolar d/o- feels irritable, brain fog, people piss her off. C ontributing Factors: Zoloft, Lexapro, generic Seroquel- not effective. D epression Screening: DENG-7 (2018 Edition) F eeling nervous, anxious, or on edge?Nearly every day, N ot being able to stop or control worrying S everal days, W orrying too much about different things S everal days, T rouble relaxing M ore than half the days, B eing so restless that it is hard to sit still S everal days, B ecoming easily annoyed or irritable N early every day, F eeling afraid as if something awful might happen Several days, T otal DENG-7 Score 1 2, I f you checked any problems, how difficult have they made it for you to do your work, take care of things at home, or get along with other people? Very difficult, I nterpretation of Total ( 10 to 14) Moderate. * Medical History: * Surgical History: * Hospitalization/Major Diagno stic Procedure: * Medications: T akingEstradiol 2 MG Tablet Oral ZyrTEC Allergy 10 MG Capsule Oral Colestipol HCl 1 GM Tablet Oral Hyoscyamine Sulfate 0.125 MG Tablet Oral Metoprolol Succinate ER 25 MG Tablet Extended Release 24 Hour Oral Cyanocobalamin 1000 MCG/ML Solution Injection Lansoprazole 30 MG Capsule Delayed Release Oral Dicyclomine HCl 20 MG Tablet Oral Vitamin D3 Adult Gummies 25 MCG (1000 UT) Tablet Chewable Oral Contour Next One EACH MISCELLANEOUS SUMAtriptan Succinate 100 MG Tablet Oral MICROLET EACH MISCELLANEOUS , Notes to Pharmacist: *Reorder from [employer] for eRx and Interaction Alerts*[employer] Blood Glucose System w/Device Kit In Vitro traZODone HCl 50 MG Tablet 0.5 to 1 tablet at bedtime Oral Once a day As neededSEROquel XR 300 MG Tablet Extended Release 24 Hour 1 tablet in the evening Oral Once a day buPROPion HCl ER (XL) 300 MG Tablet Extended Release 24 Hour 1 tablet every morning Oral Once a day clonazePAM 0.5 MG Tablet 1 tablet Oral Once a day As neededQUEtiapine Fumarate ER 300 MG Tablet Extended Release 24 Hour TAKE 1 TABLET BY MOUTH DAILY Medication List reviewed and reconciled with the patientTaking Estradiol 2 MG Tablet Oral Taking ZyrTEC Allergy 10 MG Capsule Oral Taking Colestipol HCl 1 GM Tablet Oral Taking Hyoscyamine Sulfate 0.125 MG Tablet Oral Taking Metoprolol Succinate ER 25 MG Tablet Extended Release 24 Hour Oral Taking Cyanocobalamin 1000 MCG/ML Solution Injection Taking Lansoprazole 30 MG Capsule Delayed Release Oral Taking Dicyclomine HCl 20 MG Tablet Oral Taking Vitamin D3 Adult Gummies 25 MCG (1000 UT) Tablet Chewable Oral Taking Contour Next One EACH MISCELLANEOUS Taking SUMAtriptan Succinate 100 MG Tablet Oral Taking MICROLET EACH MISCELLANEOUS , Notes to Pharmacist: *Reorder from [employer] for eRx and Interaction Alerts*Taking Contour Blood Glucose System w/Device Kit In Vitro Taking traZODone HCl 50 MG Tablet 0.5 to 1 tablet at bedtime Oral Once a day As neededTaking SEROquel XR 300 MG Tablet Extended Release 24 Hour 1 tablet in the evening Oral Once a day Taking buPROPion HCl ER (XL) 300 MG Tablet Extended Release 24 Hour 1 tablet every morning Oral Once a day Taking clonazePAM 0.5 MG Tablet 1 tablet Oral Once a day As neededTaking QUEtiapine Fumarate ER 300 MG Tablet Extended Release 24 Hour TAKE 1 TABLET BY MOUTH DAILY Medication List reviewed and reconciled with the patient * Allergies: N .K.DYefrino[Allergies Verified] Objective: * Vitals: B P:124/82mm Hg, HR:73/min, Wt:301.2lbs, Wt-k.62 kg, Ht: 71.00 in, Ht-cm: 180.34 cm, BMI:42Index, Body Surface Area: 2.61. * Examination: P sychiatry: Appearance: w ell-groomed, [...] Examination: - Mental Status Examination: - Patient presents with heightened anxiety, particularly related to driving and personal responsibilities. - Reports feelings of irritability and being on edge, with no depressive or manic symptoms noted. - Sleep pattern is stable with 7-8 hours per night, though initial difficulty falling asleep due to anxiety. - No evidence of psychotic symptoms or thought disorders. - Cognitive concerns include reported brain fog. - Emotional state includes anxiety and stress from personal life changes and responsibilities. - Physical Examination: - General: Patient is alert and oriented, able to engage in conversation and provide coherent self-report. - Neurological: Reports of brain fog, suggesting possible cognitive impairment, though specific neurological deficits are not assessed in this session. Assessment: * Assessment: 1. G eneralized anxiety disorder - F41.1 (Primary) 2 . I nsomnia due to other mental disorder - F51.05 3 . 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 B ipolar disorder, currently in remission, most recent episode unspecified - F31.70 1. Anxiety- Patient reports constant anxiety related to life and work, difficulty being in a vehicle with someone else driving, and feeling on edge every day.- Anxiety may be exacerbated by the recent passing of her mother and dealing with her estate.Plan:- Increase sertraline dosage to 400 mg temporarily to help with irritability and mood symptoms.- Reevaluate the patient's response to the increased sertraline dosage in one month.- Encourage the patient to consider telehealth counseling services through her work to address anxiety and potential unresolved grief.2. Sleep disturbance- Patient reports difficulty falling asleep due to anxiety but sleeps 7-8 hours once asleep.Plan:- Continue using trazodone as needed for sleep.- Monitor the patient's sleep patterns and adjust medications as necessary during follow-up visits.3. Grief and unresolved emotions- Patient expresses concerns about not fully grieving her mother's passing and feeling guilty for not grieving as hard as she thought she would.Plan:- Encourage the patient to seek counseling to address unresolved grief and emotions related to her mother's passing.- Support the patient in setting healthy boundaries with family members and focusing on her own well-being.4. Irritability- Patient reports increased irritability, nitpicking at her , and feeling frustrated with others.Plan:- Increase sertraline dosage to 400 mg temporarily to help with irritability and mood symptoms.- Reevaluate the patient's response to the increased sertraline dosage in one month.- Encourage the patient to seek counseling to address irritability and potential underlying emotional issues.5. Family dynamics and boundaries- Patient is working on setting boundaries with her sister and other family members, as well as adjusting to her new role in the family after her mother's passing.Plan:- Encourage the patient to continue setting healthy boundaries with family members and focusing on her own well-being.- Recommend counseling to help the patient navigate family dynamics and establish healthy boundaries.Follow-up in one month to assess the patient's response to the increased sertraline dosage and discuss any ongoing concerns. Plan: * Treatment: 2. I nsomnia due to other mental disorder Refill traZODone HCl Tablet, 50 MG, 0.5 to 1 tablet at bedtime, Oral, Once a day As needed, 90 days, 90 Tablet, Refills 1. Notes: Trazodone 0.5 to 1 tablet hs prn 3. B ipolar disorder, currently in remission, most recent episode unspecified Refill SEROquel XR Tablet Extended Release 24 Hour, 400 MG, 1 tablet in the evening, Oral, Once a day, 90 days, 90 Tablet, Refills 1; R efill buPROPion HCl ER (XL) Tablet Extended Release 24 Hour, 300 MG, 1 tablet every morning, Oral, Once a day, 90 days, 90 Tablet, Refills 1. Notes: Quetiapine er 400mg,Bupropion xl 300mg * Procedure Codes: 9 6127 BEHAV ASSMT W/SCORE & DOCD/STAND [id number] VISIT COMPLEXITY INHERENT TO ONGOING CARE RELATED TO A PATIENT'S SINGLE, SERIOUS CONDITION OR A COMPLEX CONDITION * Follow Up: 4 Weeks (Reason: f/u bipolar d/o, anxiety) * Billing Information: * Visit Code: 07077 OFFICE OUTPATIENT VISIT 25 MINUTES DETAILED HISTORY AND EXAM/MODERATE MEDICAL DECISION MAKING. * Procedure Codes: 32030 BEHAV ASSMT W/SCORE & DOCD/STAND INSTRUMENT. G2211 VISIT COMPLEXITY INHERENT TO ONGOING CARE RELATED TO A PATIENT'S SINGLE, SERIOUS CONDITION OR A COMPLEX CONDITION. * ASSISTANT Sign off status: Completed true * Provider: MINNA MULLEN Date: 06/05/2023 Generated for Fran monterroso/Xavi/Tricia on: 0 07/23/2024 08:13 AM CDT History and Physical Notes * HPI (History of Present Illness) Category Sub-Category Detail Notes Category Not es History of Presenting Problem Anxiety feels anxious constantly, fe els overwhelmed. Struggling being in a vehicle with someone else driving. Depression grief with mothers p assing away in November 2023 Mood lability Bipolar d/o- feels i rritable, brain fog, people piss her off Depression screening PHQ-9 Little inte rest or pleasure in doing things: More than half the days Feeling down, depressed, or hopeless: Se veral days Trouble falling or staying asleep, or sl eeping too much: Several days Feeling tired or having little energy: N early every day Poor appetite or overeating: Not at all Feeling bad about yourself o r that you are a failure, or have let yourself or your family down: Not at all Trouble concentrating on thi ngs, such as reading the newspaper or watching television: Nearly every day Moving or speaking so slowly that other people could have noticed; or the opposite, being so fidgety or restless that you have been moving around a lot more than usual: Not at all Thoughts that you would be b michelle off or of hurting yourself in some way: Not at all Total Score: 10 Interpretation: Moderate Depression Intervention Depression Screening Findings: P ositve Follow-Up for Depression: [facility] treatment assessment, Patient follow-up to return when and if necessary Suicide Risk Assessment Performed: 04/04 Additional Evaluation for De pression: Psychiatric interview and evaluation Name of the standardized too l used for adult depression screening:: Patient Health Questionnaire (PHQ-9) Depression Screening DENG-7 (2018 Edition) Feelin g nervous, anxious, or on edge: Nearly every day Not being able to stop or control worryi ng: Several days Worrying too much about different things : Several days Trouble relaxing: More than half the day s Being so restless that it is hard to sit still: Several days Becoming easily annoyed or irritable: Ne brad every day Feeling afraid as if something awful trace ht happen: Several days Total DENG-7 Score: 12 If you checked any problems, how difficult have they made it for you to do your work, take care of things at home, or get along with other people?: Very difficult Interpretation of Total: (10 to 14) Mode rate Examination Category Sub-Category Detail Notes Category Not [...] Examination - Mental Status Examination: - Patient presents with heightened anxiety, particularly related to driving and personal responsibilities. - Reports feelings of irritability and being on edge, with no depressive or manic symptoms noted. - Sleep pattern is stable with 7-8 hours per night, though initial difficulty falling asleep due to anxiety. - No evidence of psychotic symptoms or thought disorders. - Cognitive concerns include reported brain fog. - Emotional state includes anxiety and stress from personal life changes and responsibilities. - Physical Examination: - General: Patient is alert and oriented, able to engage in conversation and provide coherent self-report. - Neurological: Reports of brain fog, suggesting possible cognitive impairment, though specific neurological deficits are not assessed in this session.
--- OUTSIDE RECORDS SUMMARY | 2024-07-23 08:13 | XMS_ITS | Data Portability ---
Author Organization [facility] Address [address] [place] [address] Care Team Providers Care Supervisor Fabrication Name Role Phone CAROLINE NGUYEN Primary Care Provider Assessment No assessment recorded. Plan of Treatment Reminders Order Date Submit Date Provider Last Modified By Organization Details Last Modified Time Details Appointments None recorded. Lab hormone panel, serum or plasma 2023 024 [facility] (Lab), [address] [place], [address], 4 05:12:53 MAZIN + rf (antinuclea r antibodies + rheumatoid factor), quantitativ e, serum 2023 024 [email or web address] 1 [facility] (Lab), [address] [place], [address], 4 11:49:44 C-reactive protein, quantitativ e, serum or plasma 2023 024 [facility] (Lab), [address] [place], [address], 4 05:12:53 ESR (erythrocyt e sedimentati on rate), blood 2023 024 [facility] (Lab), [address] [place], [address], 4 05:12:52 Referral None recorded. Procedures None recorded. Surgeries robotic assisted hysterectom y with salpingecto my (SURG) [address] [facility], [address], [place], [address], 3 17:18:36 Imaging None recorded. Medication Orders estradiol 1 mg tablet 2022 023 [email or web address] 1 [facility] #[id number], [address], [place], [address], 4 12:09:09 Patient TargetsNo targets recorded. Patient InstructionsNo instructions recorded. Reason for Referral None Reported. Results Created Date Observation Date Name Description Value Unit Range Abnormal Flag Note LastModifiedBy Organization Detail LastModifiedTime 05/30/19 23 05/30/2022 IMAGE GUIDE D PAP AND HPV REGAR DLESS image guided Pap, HPV regardless of Pap result SEE RESULT S BELOW CASE REPOR T: Cytol ogy Gynec ologi froilan Repor t Case: [id number] Autho benny whaley Provi vanessa: Katheryn Hinojosa, GUANACO Colle cted: 05/30 1406 Order ing Locat ion: [place] Patho log[facility] Recei mitzy: 05/31 0906 First Scree n: Harika Gunn een: Luz Granados, CT Speci men: Scree radha Pap - Image d, Cervi x STATE MENT OF ADEQU ACY: Satis facto ry for evalu ation Trans forma tion zone compo nent absen t The absen ce of an endoc ervic al compo nent was confi rmed by an addit ional scree ner. FINAL DIAGN OSIS: Negat zoltan for Intra epith elial Lesjas n or Fadi solano (NIL) . Elect gaston angulo d by Luz Granados, CT on 023 at 9:05 AM ----- ----- ----- ----- ----- ----- ----- ----- ----- ----- ----- ----- ----- ----- ----- ----- ----- ---- HPV RESUL TS: HPV mRNA E6/E7 : No HPV mRNA Detec kallie NOTE: This high risk HPV mRNA assay detec ts fourt een high- risk HPV types (16, 18, 31, 33, 35, 39, 45, 51, 52, 56, 58, 59, 66, 68) witho ut diffe renti ation . COMME NT: Note: This speci men was revie wed by a Cytot echno logis t and/o r Patho logis t (as indic ated in this repor t) after evalu ation using the Thinp rep Imagi ng Syste m. CLINI FROILAN INFOR MATIO N: Menst rual Statu s: LMP (if appli cable ): Clini froilan Histo ry/Pr eviou s Pap: Type of Neopl caroline (if appli cable ): Signi fican t Clini froilan Findi ngs: Other Histo ry: Hormo emma (if appli cable ): PAP EDUCA KARUNA L NOTE: The Pap Test is a scree radha test with an inher ent false negat zoltan rate. Liqui d-bas ed sampl ing may decre ase, but will not elimi scott, false negat zoltan resul ts. A negat zoltan resul t does not precl ude the prese nce and/o r devel opmen t of disea se, since the prese nce of abnor mal cells in the sampl e depen ds on the locat ion of the lesio n and sampl ing techn ique. Jannet nued regul ar scree radha is the best metho d of cance r preve ntion . If repor kallie cytol ogic findi ng do not corre late with physi froilan and/o r histo rical findi ngs, furth er inves tigat ion is recom damion d, as clini radha castillo nted. Not Available [facility] (Lab) [address], [place], [address], 06/02/2022 10:07:44 05/30/19 23 05/30/2022 CT/GC (CRISS) , THINP REP VIAL chlamydia trachomatis, PCR Negati ve negati ve Not Available [facility] (Lab) [address], [place], [address], 06/02/2022 10:07:44 05/30/19 23 05/30/2022 CT/GC (CRISS) , THINP REP VIAL neisseria gonorrhoeae, PCR Negati ve negati ve Not Available [facility] (Lab) [address], [place], [address], 06/02/2022 10:07:44 05/30/19 23 05/30/2022 TRICH OMONA S VAGIN VANCE (RRNA ) trichomonas vaginalis ribosomal RNA (rrna) Negati ve negati ve Not Available [facility] (Lab) [address], [place], [address], 06/02/2022 10:07:45 05/30/19 23 05/30/2022 DHEA SULFA TE DHEA-sulfate 17 ug/dL Femal e Range s Age(y ) Range (ug/d L) 10-15 34-28 0 15-20 65-36 8 20-25 148-4 07 25-35 99-34 0 35-45 61-33 7 45-55 35-25 6 55-65 19-20 5 65-75 9-246 > 75 12-15 4 Not Available [facility] (Lab) [address], [place], [address], 06/03/2022 17:18:15 05/30/19 23 05/30/2022 HUMAN SEX HORMO NE NAZARIO NG GLOBU HAIM sex hormone binding globulin 48.3 nmole s/L 16.8-1 25.2 Not Available [facility] (Lab) [address], [place], [address], 06/03/2022 17:18:16 05/30/19 23 05/30/2022 TSH, REFLE X FREE T4 TSH 3.26 uIU/m L 0.30-5 .33 Not Available [facility] (Lab) [address], [place], [address], 06/03/2022 17:18:16 05/30/19 23 05/30/2022 PROGE STERO NE progesterone 0.71 NG/mL This assay was perfo rmed using [employer] ratio n reage nts and test kits. Value s obtai meg with other assay metho ds or kits canno t be used [facility] . Femal e Proge stero ne Range s: Folli cular phase 0.06- 0.89 ng/mL Ovula tion phase 0.12- 12.00 ng/mL Lutea l phase 1.83- 23.90 ng/mL Postm enopa usal< 0.05- 0.13 ng/mL Healt hy Pregn ant Women 1st Trime ster1 1.0-4 4.30 2nd Trime ster2 5.40- 83.30 3rd Trime ster5 8.70- 214.0 0 Not Available [facility] (Lab) [address], [place], [address], 06/03/2022 17:18:16 05/30/19 23 05/30/2022 PROLA CTIN prolactin, total 4.92 NG/mL 4.79-2 3.30 This assay was perfo rmed using [employer] ratio n reage nts and test kits. Value s obtai meg with other assay metho ds or kits canno t be used [facility] . Not Available [facility] (Lab) [address], [place], [address], 06/03/2022 17:18:17 05/30/1905/30/2022 FSH, LH, ESTRA DIOL estradiol 66.7 pg/mL This assay was perfo rmed using [employer] n reage nts and test kits. Value s obtai meg with other assay metho ds or kits canno t be used [facility] . Femal e Estra diol Range s: Folli cular phase 12.4- 233 pg/mL Ovula tion phase 41.0- 398 pg/mL Lutea l phase 22.3- 341 pg/mL Postm enopa usal< 5-138 pg/mL Healt hy Pregn ant Women 1st Trime ster1 54-32 43 pg/mL 2nd Trime ster1 561-2 1280 pg/mL 3rd Trime ster8 525-> 23327 pg/mL Not Available [facility] (Lab) [address], [place], [address], 06/03/2022 17:18:17 05/30/19 23 05/30/2022 FSH, LH, ESTRA DIOL FSH 5.2 mIU/m L This assay was perfo rmed using [employer] reage nts and test kits. Value s obtai meg with other assay metho ds or kits canno t be used [facility] . Femal es Folli cular : 3.5-1 2.5 mIU/m L Ovula tion: 4.7-2 1.5 mIU/m L Lutea l: 1.7-7 .7 mIU/m L Postm enopa use: 25.8- 134.8 mIU/m L Not Available [facility] (Lab) [address], [place], [address], 06/03/2022 17:18:17 05/30/1905/30/2022 FSH, LH, ESTRA DIOL LH 5.8 mIU/m L This assay was perfo rmed using [employer] ratio n reage nts and test kits. Value s obtai meg with other assay metho ds or kits canno t be used inter [facility] . Femal es Mid-F ollic ular: 2.4-1 2.6 mIU/m L Mid-C ycle: 14.0- 95.6 mIU/m L Mid-L uteal : 1.0-1 1.4 mIU/m L Postm enopa use: 7.7-5 8.5 mIU/m L Not Available [facility] (Lab) [address] [place], [address], 06/03/2022 17:18:17 05/30/1905/30/2022 TESTO STERO NE, FREE( DIALY SIS) AND TOTAL (LC/M S/MS) testosterone , total 9 NG/dL 2-45 For addit ional nima olivier refer to http: //[facility] stdia gnost ics.c om/fa q/Tot alTcuauhtemoc Theodore CMSMS (This link is being provi ded for infor matjas nal/ educa karuna l purpo ses only. ) This test was devel oped and its halie tical perfo rmanc e diane cteri stics have been deter mined by [employer]. It has not been clear ed or appro mitzy by the FDA. This assay has been valid ated pursu ant to the CLIA regul ation s and is used for clini froilan purpo ses. Not Available [facility] (Lab) [address] [place], [address], 06/03/2022 17:18:18 05/30/1905/30/2022 TESTO STERO NE, FREE( DIALY SIS) AND TOTAL (LC/M S/MS) testosterone , free 1.1 pg/mL 0.1-6. 4 This test was devel oped and its halie tical perfo rmanc e diane cteri stics have been deter mined by [employer]stic [employer]. It has not been clear ed or appro mitzy by the FDA. This assay has been valid ated pursu ant to the CLIA regul ation s and is used for clini froilan purpo ses. Perfo rming Organ izati on Moiz stanleyjas daly: Site ID: [id number] Name: [employer] ostic s-Rolando [facility] Addre ss: [id number] [place] [address] Direc tor: Skinny bass M.D. Not Available [facility] (Lab) [address] [place], [address], 06/03/2022 17:18:18 08/16/19 24 08/16/2023 SEDIM ENTAT ION RATE, ESR sedimentatio n rate 24 mm/ho ur (based on docume nted legal sex) 0-20 high Not Available [facility] (Lab) [address], [place], [address], 08/17/2023 05:12:52 08/16/19 24 08/16/2023 CRP (C-RE ACTIV E PROTE IN) C-reactive protein 3.3 mg/L 0.0-10 .0 Not Available [facility] (Lab) [address], [place], [address], 08/17/2023 05:12:53 08/16/19 24 08/16/2023 FSH, LH, ESTRA DIOL estradiol 63.8 pg/mL This assay was perfo rmed using [employer] reage nts and test kits. Value s obtai meg with other assay metho ds or kits canno t be used inter [facility] . Femal e Estra diol Range s: Folli cular phasE 12.4- 233 pg/mL Ovula tion phasE 41.0- 398 pg/mL Lutea l phasE 22.3- 341 pg/mL Postm enopa usal <5-13 8 pg/mL Healt hy Pregn ant Women 1st Trime ster 154-3 243 pg/mL 2nd Trime ster 1561- 11218 pg/mL 3rd Trime ster 8525- >3000 0 pg/mL Not Available [facility] (Lab) [address], [place], [address], 08/17/2023 05:12:53 08/16/19 24 08/16/2023 FSH, LH, ESTRA DIOL FSH 28.5 mIU/m L This assay was perfo rmed using [employer] n reage nts and test kits. Value s obtai meg with other assay metho ds or kits canno t be used inter [facility] . Femal es Folli cular : 3.5-1 2.5 mIU/m L Ovula tion: 4.7-2 1.5 mIU/m L Lutea l: 1.7-7 .7 mIU/m L Postm enopa use: 25.8- 134.8 mIU/m L Not Available [facility] (Lab) [address], [place], [address], 08/17/2023 05:12:53 08/16/19 24 08/16/2023 FSH, LH, ESTRA DIOL LH 31.0 mIU/m L This assay was perfo rmed using [employer] ratio n reage nts and test kits. Value s obtai meg with other assay metho ds or kits canno t be used inter [facility] . Femal es Mid-F ollic ular: 2.4-1 2.6 mIU/m L Mid-C ycle: 14.0- 95.6 mIU/m L Mid-L uteal : 1.0-1 1.4 mIU/m L Postm enopa use: 7.7-5 8.5 mIU/m L Not Available [facility] (Lab) [address], [place], [address], 08/17/2023 05:12:53 06/02/19 23 06/02/2022 US, pelvi s No observ ation record ed. [email or web address] [place] [address], [place], [address], 06/02/2022 13:19:33 06/02/19 23 06/02/2022 US, trans vagin al No observ ation record ed. [email or web address] [place] [address], [place], [address], 06/02/2022 13:19:24 06/02/19 23 06/02/2022 US, pelvi s No observ ation record ed. [email or web address] [address], [place], [address], 06/02/2022 22:29:02 06/30/19 23 06/29/2022 XR, cysto gram No observ ation record ed. [email or web address] [facility] [address], [place], [address], 06/29/2022 20:55:57 Result Notes None recorded. Problems Name Problem SNOMED Code Status Onset Date Resolution Date Notes Provider Name and Address Organization Details Recorded Time Body mass index 30+ - obesity 217583994 Active 2018 Body mass index (BMI) 35.0-35.9, adult;Brandon rded Elsewhere: No Locatio n: [facility] rce: EHR Chroni c: N Practice ID: [id number] Imelda ble Time: 08:30:00 AM Not Available [facility] 3 14:49:20 Abnormal cervical Papanicol aou smear [id number] Active 2023 Layla kinney [facility] 4 12:11:37 Human papilloma virus infection 730493810 Active 2023 Layla kinney [facility] 4 12:11:44 Mixed anxiety and depressiv e disorder 698758069 Active 2023 Layla kinney [facility] 4 12:12:07 Problem Notes None recorded. Procedures Surgical History Date Name Laterality Status Provider Name and Address Organization Details Recorded Time 06/30/19 23 ROBOTIC ASSISTED HYSTERECTOMY WITH SALPINGECTOMY (SURG) completed Xochilt Arndt [facility] 06/30/2022 09:56:48 05/30/19 23 Date of Last Pap Smear completed Layla Stephenson [facility] 08/12/2023 12:19:27 04/29/20 21 Date of Last Mammogram completed Layla Stephenson [facility] 08/12/2023 12:21:12 08/10/19 19 completed Mignon Flor [facility] 03/29/2021 10:39:27 06/18/19 16 Colposcopy completed Mignon Flor [facility] 03/24/2021 16:13:23 06/18/19 16 Colposcopy completed Layla Stephenson [facility] 08/12/2023 12:23:46 05/07/19 16 endometrial biopsy completed Layla Stephenson [facility] 08/12/2023 12:24:01 05/01/19 01 Gastric Bypass completed Nilsa [facility] 02/18/2020 16:32:43 05/01/18 92 Dilation and Curettage completed Nilsa [facility] 02/18/2020 16:33:02 Imaging Results Imaging Date Name Status LastModified by Organization Details LastModified Time 06/02/2022 US, pelvis completed [email or web address] [place] [address] [place], [address], 06/02/2022 13:19:33 06/02/2022 US, transvaginal completed [email or web address] [facility] [address] [place], [address], 06/02/2022 13:19:24 06/02/2022 US, pelvis completed [email or web address] [address] [facility], [place], [address], 06/02/2022 22:29:02 06/29/2022 XR, cystogram completed [email or web address] [facility] [address], [place], [address], 06/29/2022 20:55:57 Procedure Notes None recorded. Medical Equipment None Reported. Allergies No known drug allergies Medications Name Sig Start Date Stop Date Status Note LastModified by Organization Details LastModified Time insulin syringe/u -100/1ml/ 31g x 5/1 6 31g x 5/16 1 ml misc 03/29 completed Not Available Not Available Not Available cyclobenz aprine 10 mg tablet TAKE 1 TABLET BY MOUTH 3 TIMES DAILY NEEDED FOR MUSCLE SPASMS active Not Available Not Available No t Available nicotine 14 mg/24 hr daily transderm al patch APPLY 1 PATCH TRANSDER SUZANNE DAILY active Not Available Not Available No t Available trazodone 50 mg tablet TAKE 1/2-1 TABLET BY MOUTH ONCE DAILY AT BEDTIME NEEDED active Not Available Not Available No t Available azithromy alex 250 mg tablet TAKE 2 TABLETS BY MOUTH TODAY, THEN TAKE 1 TABLET DAILY FOR 4 DAYS DIRECTED 07/02 completed Not Available Not Available Not Available fluconazo le 150 mg tablet TAKE 1 TABLET BY MOUTH NOW FOR 1 DOSE 08/11 completed Not Available Not Available Not Available benzonata te 200 mg capsule TAKE 1 CAPSULE BY MOUTH THREE TIMES A DAY NEEDED 07/02 completed Not Available Not Available Not Available sumatript an 100 mg tablet PLEASE SEE ATTACHED FOR DETAILED DIRECTIO NS active Not Available Not Available No t Available hydrocodo ne 5 mg-acetam inophen 325 mg tablet Take 1 tablet every 6 hours by oral route. 08/11 completed Not Available Not Available Not Available prednison e 20 mg tablet TAKE 2 TABLET BY MOUTH ONCE A DAY active Not Available Not Available No t Available clonazepa m 0.5 mg tablet TAKE 1 TABLET BY MOUTH EVERY DAY NEEDED active Not Available Not Available No t Available doxepin 75 mg capsule take 1 capsule by oral route every day at bedtime 05/30 completed Prescrib ed Elsewher e: Yes Loca tion: [facility] odify By: farshad wetzel DateTime : 02/03/20 08:45:00 AM Not Available Not Available Not Available Seroquel 25 mg tablet active Not Available Not Available Not Available penicilli n V potassium 500 mg tablet TAKE 1 TABLET BY MOUTH EVERY 12 HOURS X10 DAYS active Not Available Not Available No t Available acetamino phen 300 mg-codein e 30 mg tablet TAKE 1 TABLET BY MOUTH EVERY 4 HOURS NEEDED FOR PAIN 08/11 completed Not Available Not Available Not Available prochlorp erazine maleate 10 mg tablet TAKE 1 TABLET (10 MG TOTAL) BY MOUTH TWICE A DAY NEEDED FOR NAUSEA AND VOMITING 05/30 completed Not Available Not Available Not Available doxepin 10 mg capsule active Not Available Not Available Not Available Nexium 20 mg capsule,d elayed release take 1 capsule by oral route every day 02/02 completed Prescrib ed Elsewher e: Yes Loca tion: [facility] odify By: farshad wetzel DateTime : 03/17/20 15 02:00:00 PM Not Available Not Available Not Available estradiol 1 mg tablet TAKE 1 TABLET BY MOUTH DAILY 08/11 completed Not Available Not Available Not Available hyoscyami ne ER 0.375 mg tablet,ex tended release,1 2 hr TAKE 1 TABLET BY MOUTH EVERY 12 HOURS active Not Available Not Available No t Available dicyclomi ne 20 mg tablet TAKE 1 TABLET BY MOUTH FOUR TIMES A DAY active Not Available Not Available No t Available amitripty line 10 mg tablet TAKE 1 TABLET BY MOUTH EVERY DAY AT BEDTIME FOR 7 DAYS, THEN INCREASE TO TAKE 2 TABLETS active Not Available Not Available No t Available benzonata te 100 mg capsule TAKE 1 CAPSULE BY MOUTH THREE TIMES A DAY NEEDED FOR COUGH 07/02 completed Not Available Not Available Not Available cephalexi n 500 mg capsule TAKE 1 CAPSULE BY MOUTH FOUR TIMES A DAY 08/11 completed Not Available Not Available Not Available hyoscyami ne sulfate 0.125 mg tablet active Not Available Not Available Not Available cyanocoba perri (vit B-12) 1,000 mcg/mL injection solution active Not Available Not Available Not Available lansopraz ole 30 mg capsule,d elayed release TAKE 1 CAPSULE BY MOUTH EVERY DAY active Not Available Not Available No t Available omeprazol e 20 mg capsule,d elayed release active Not Available Not Available Not Available estradiol 2 mg tablet TAKE 1 TABLET BY MOUTH EVERY DAY active Not Available Not Available No t Available insulin syringe U-100 with needle 1 mL 31 gauge x 5/16 USE EVERY OTHER WEEK FOR INJECTIO NS 03/24 completed Not Available Not Available Not Available hydrochlo rothiazid e 25 mg tablet take 1 tablet by oral route every day 05/30 completed Prescrib ed Elsewher e: Yes Loca tion: [facility] odify By: farshad wetzel DateTime : 02/03/20 17 08:45:00 AM Not Available Not Available Not Available metoprolo l succinate ER 25 mg tablet,ex tended release 24 hr TAKE 1/2 TABLET BY MOUTH DAILY active Not Available Not Available No t Available azelastin e 137 mcg (0.1 %) nasal spray USE 2 SPRAYS IN EACH NOSTRIL TWICE A DAY active Not Available Not Available No t Available ibuprofen 600 mg tablet TAKE 1 TABLET BY MOUTH 3 TIMES A DAY NEEDED FOR PAIN active Not Available Not Available No t Available metformin ER 500 mg tablet,ex tended release 24 hr 03/29 completed Not Available Not Available Not Available colestipo l 1 gram tablet TAKE 1 TABLET BY MOUTH TWICE A DAY active Not Available Not Available No t Available Microlet Lancet 07/02 completed Not Available Not Available Not Available amoxicill in 875 mg-potass ium clavulana te 125 mg tablet TAKE 1 TABLET BY MOUTH TWICE DAILY 08/11 completed Not Available Not Available Not Available amoxicill in 500 mg-potass ium clavulana te 125 mg tablet TAKE 1 TABLET BY MOUTH EVERY 12 HOURS 05/30 completed Not Available Not Available Not Available Benadryl 25 mg capsule active Not Available Not Available Not Available Vitamin C 500 mg capsule,e xtended release active Prescrib ed Elsewher e: Yes Loca tion: [facility] odify By: win wetzel DateTime : 08/10/19 08:30:00 AM Not Available Not Available Not Available iron 325 mg (65 mg iron) tablet active Not Available Not Available Not Available clonazepa m 0.5 mg disintegr ating tablet active Not Available Not Available Not Available cholestyr amine (with sugar) 4 gram powder for susp in a packet PLEASE SEE ATTACHED FOR DETAILED DIRECTIO NS active Not Available Not Available No t Available bupropion HCl XL 300 mg 24 hr tablet, extended release TAKE 1 TABLET BY MOUTH EVERY DAY IN THE MORNING active Not Available Not Available No t Available bupropion HCl XL 150 mg 24 hr tablet, extended release 05/30 completed Not Available Not Available Not Available Riomet 500 mg/5 mL oral solution take 10 millilit er by oral route 2 times every day with meals 05/30 completed Prescrib ed Elsewher e: Yes Loca tion: [facility] odify By: win wetzel DateTime : 08/10/19 08:30:00 AM Not Available Not Available Not Available bupropion HCl (bulk) 100 % powder 05/30 completed Prescrib ed Elsewher e: Yes Loca tion: [facility] odify By: farshad wetzel DateTime : 02/03/20 08:45:00 AM Not Available Not Available Not Available chlorhexi dine gluconate 0.12 % mouthwash SWISH 15 ML IN MOUTH TWICE DAILY FOR 2 WEEKS. SPIT OUT AFTER SWISHING 03/24 completed Not Available Not Available Not Available Vitamin C 08/11 completed Not Available Not Available Not Available iron 08/11 completed Not Available Not Available Not Available Seroquel 08/11 completed Not Available Not Available Not Available doxepin 05/30 completed Not Available Not Available Not Available Vitamin D3 08/11 completed Not Available Not Available Not Available metformin 05/30 completed Not Available Not Available Not Available Zyrtec 08/11 completed Not Available Not Available Not Available multivita min active Not Available Not Available Not Available quetiapin e ER 400 mg tablet,ex tended release 24 hr TAKE 1 TABLET BY MOUTH EVERY EVENING active Not Available Not Available No t Available quetiapin e ER 300 mg tablet,ex tended release 24 hr TAKE 1 TABLET BY MOUTH EVERY DAY IN THE EVENING active Not Available Not Available No t Available bupropion HBr 05/30 completed Not Available Not Available Not Available Vitamin D-3 with Aloe 120 mg-1,000 unit-10 mg tablet active Not Available Not Available No t Available Zyrtec 10 mg capsule 2014 active Prescrib ed Elsewher e: Yes Loca tion: Skye [facility] odify By: [email or web address] phillipser DateTime : 03/17/20 15 02:00:00 PM Not Available Not Available Not Available B12 5,000 mcg-100 mcg sublingua l lozenge 05/30 completed Prescrib ed Elsewher e: Yes Loca [facility]ion: [facility] odify By: win santiago DateTime : 08/10/19 19 08:30:00 AM Not Available Not Available Not Available B12 05/30 completed Not Available Not Available Not Available Contour Next Test Strips TEST BLOOD SUGAR ONCE DAILY active Not Available Not Available No t Available Multi Vitamin 9 mg iron/15 mL oral liquid 08/11 completed Prescrib ed Elsewher e: Yes Loca tion: [facility] odify By: [email or web address] Aurea [email or web address] DateTime : 08/10/19 08:30:00 AM Not Available Not Available Not Available Contour Next One Meter USE TO TEST BLOOD SUGAR ONCE DAILY active Not Available Not Available No t Available OneTouch Delica Plus Lancet 33 gauge USE TO CHECK BLOOD SUGAR ONCE DAILY 03/29 completed Not Available Not Available Not Available ID NOW COVID-19 Test Kit 08/11 completed Not Available Not Available Not Available COVID-19 test specimen collectio n TEST DIRECTED 03/24 completed Not Available Not Available Not Available Ozempic 1 mg/dose (4 mg/3 mL) subcutane ous pen injector 08/11 completed Not Available Not Available Not Available Ozempic 0.25 mg or 0.5 mg (2 mg/3 mL) subcutane ous pen injector 08/11 completed Not Available Not Available Not Available Zepbound 5 mg/0.5 mL subcutane ous pen injector INJECT 5 MG UNDER THE SKIN ONCE A WEEK active Not Available Not Available No t Available Zepbound 2.5 mg/0.5 mL subcutane ous pen injector INJECT THE CONTENTS OF 1 PEN UNDER THE SKIN ONCE WEEKLY active Not Available Not Available No t Available Vitals Date Recorded Body height Body weight Body mass index (BMI) Systolic blood pressure Diastolic blood pressure Provider Name and Address Organization Details Last Updated DateTime 06/14/2022 160.02 cm 882391.9 7 g 51.7 kg/m2 120 mm[Hg] 82 mm[Hg] [facility] 3 11:56:29 Date Recorded Body height Body mass index (BMI) Body weight Systolic blood pressure Diastolic blood pressure Provider Name and Address Organization Details Last Updated DateTime 06/24/2022 160.02 cm 52.4 kg/m2 148010.3 4 g 115 mm[Hg] 79 mm[Hg] [facility] 3 13:05:48 Date Recorded Body height Body mass index (BMI) Body weight Systolic blood pressure Diastolic blood pressure Provider Name and Address Organization Details Last Updated DateTime 07/06/2022 160.02 cm 51.9 kg/m2 139037.5 6 g 135 mm[Hg] 85 mm[Hg] Ana Laura Iqbal [facility] 3 15:01:39 Date Recorded Body height Body mass index (BMI) Body weight Systolic blood pressure Diastolic blood pressure Provider Name and Address Organization Details Last Updated DateTime 08/12/2023 160.02 cm 54.9 kg/m2 587982.6 3 g 115 mm[Hg] 78 mm[Hg] Layla Stephenson [facility] 4 12:08:10 Social History Question Answer Notes LastModified by Organizat ion Details LastModified Time Tobacco Smoking Status Current Every Day Smoker Ana Laura Iqbal gregoria [facility] 07/06/2022 15:01:55 Do You Have An Advance Directive? No Information not available 07/06/2022 What Is Your Level Of Alcohol Consumption? Occasional Information not available 05/30/2022 How Many Years Have You Consumed Alcohol? 25 Information not available 07/06/2022 Are You Blind Or Do You Have Difficulty Seeing? No Information not available 05/30/2022 What Is Your Level Of Caffeine Consumption? Moderate Information not available 05/30/2022 How Much Tobacco Do You Chew? None Information not available 05/30/2022 In The 14 Days Before Symptom Onset, Have You Had Close Contact With A Laboratory-confir med COVID-19 While That Case Was Ill? No Information not available 05/30/2022 In The 14 Days Before Symptom Onset, Have You Had Close Contact With A Person Who Is Under Investigation For COVID-19 While That Person Was Ill? No Information not available 05/30/2022 Have You Been To An Area Known To Be High Risk For COVID-19? No Information not available 05/30/2022 Are You Deaf Or Do You Have Serious Difficulty Hearing? No Information not available 05/30/2022 What Type Of Diet Are You Following? REGULAR Information not available 07/06/2022 What Is The Highest Grade Or Level Of School You Have Completed Or The Highest Degree You Have Received? 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 Yes Information not available 05/30/2022 Do You Use Protection During Sex? No Information not available 05/30/2022 Do You Use Your Seat Belt Or Car Seat Routinely? Yes Information not available 05/30/2022 Do You Have Smoke And Carbon Monoxide Detectors In Your Home? Yes Information not available 05/30/2022 At What Age Did You Start Smoking Tobacco? 15 Information not available 07/06/2022 How Much Tobacco Do You Smoke? 1 PPD Information not available 07/06/2022 Do You Feel Stressed (tense, Restless, Nervous, Or Anxious, Or Unable To Sleep At Night)? [id number] Information not available 05/30/2022 Do You Use Any Illicit Or Recreational Drugs? No Information not available 05/30/2022 Do You Use Sunscreen Routinely? Yes Information not available 05/30/2022 How Many Years Have You Smoked Tobacco? 31 Information not available 05/30/2022 Have You Used IV Drugs? No Information not available 05/30/2022 Sex: Unknown Functional Status Question Answer Note LastModified by Organizat ion Details LastModified Time Do you have difficulty walking or climbing stairs? No Information not available 07/06/2022 Are you able to walk? YESWOREST Information not available 05/30/2022 Are you able to care for yourself? Yes Information not available 07/06/2022 Do you have difficulty dressing or bathing? No Information not available 07/06/2022 What is your exercise level? Occasional Information not available 07/06/2022 Mental Status None recorded. Family History Relationship Description Onset Age of this Age Resolved Age Notes LastModified by Organization Details LastModified Time Mother Malignant tumor of cervix [email or web address] Not available 2019 16:26:19 Mother Hypercholest erolemia jgumber Not available 2019 16:27:32 Mother Hypertensive disorder jgumber Not available 2019 16:29:54 Mother Malignant tumor of ovary jgumber Not available 2019 16:30:10 Father Hypercholest erolemia jgumber Not available 2019 16:27:32 Father Hypertensive disorder jgumber Not available 2019 16:29:54 Maternal Grandfather Hypercholest erolemia jgumber Not available 2019 16:27:32 Maternal Grandfather Hypertensive disorder jgumber Not available 2019 16:29:54 Maternal Grandfather Diabetes mellitus jgumber Not available 2019 16:31:04 Maternal Grandfather History of cardiovascul ar disease Not available 06/24 12:32:52 Maternal Uncle Hypercholest erolemia jgumber Not available 2019 16:27:32 Maternal Uncle Hypertensive disorder jgumber Not available 2019 16:29:54 Maternal Uncle Diabetes mellitus jgumber Not available 2019 16:31:04 Maternal Aunt Hypercholest erolemia jgumber Not available 2019 16:27:32 Maternal Aunt Hypertensive disorder jgumber Not available 2019 16:29:54 Maternal Aunt History of cardiovascul ar disease [email or web address] Not available 06/24 12:32:52 Sister Hypertensive disorder jgumber Not available 2019 16:29:54 Brother Hypertensive disorder jgumber Not available 2019 16:29:54 Paternal Uncle Hypertensive disorder jgumber Not available 2019 16:29:54 Paternal Uncle Diabetes mellitus jgumber Not available 2019 16:31:04 Paternal Aunt Diabetes mellitus jgumber Not available 2019 16:31:04 Notes:Cancer risk form compl ete 03/02/2021 Medical History Condition Response Allergies (Food, seasonal, environmental ) Y Other Y Breast Cancer N Drug/Latex Allergies/Reactions N Blood Transfusion N Dermatologic Disorders N Lung Disease N Defects or Inherited Disease N Breast Problem N Gestational Diabetes N Hematologic disorders N Anesthesia Complications N History of STI Y Deep Vein Thrombosis N Polycystic ovary syndrome Y Anxiety Disorder Y Autoimmune disease N Arthritis N Infertility Y Polyps N Acid Reflux (GERD) Y History of abnormal pap Y Cancer N Stroke N Varicosities N Neurologic/Epilepsy N Endometriosis N High Cholesterol N Headaches Y Fibromyalgia N Kidney Disease N Heart Problems N Kidney or Bladder Problems N Thyroid Problems N GI Problems Y Eating Disorder N Anemia N Art (IVF or FET) N Psychiatric Illness Y Ovarian Cancer N Diabetes N Pulmonary (TB, Asthma) N Hepatitis/Liver Disease N No Past Medical History N Eczema N Urinary Tract Infection N Abuse/Domestic Violence N Asthma N Trauma/Violence N Depression/ depression Y Heart Disease N Pre-Eclampsia N Hypertension Y Osteoporosis N Thrombophilias N Gynecological History Statement/Question Response Date of Last Mammogram 04/29/2021 Flow Moderate Date of LMP 03/22/2021 N Was last menstrual period normal N STIs/STDs Y 08/09/2018 Desired Control Method None Abnormal Pap Yes On BCP's at Conception? N HPV Vaccine Y Colposcopy 06/18/2015 Duration of Flow (days) 5 Current Control Method Hysterectom y Are cycles usually normal N Frequency of Cycle (Q days) 30 Sexually Active? Y Menses Monthly N Date of DEXA bone scan Age of first menstrual cycle 8 Date of Last Pap Smear 05/30/2022 Sexual Problems? N LMP Approximate N Obstetrics History GPAL:G 1 P 0 0 1 0 Type Value Spontaneous 1 Living 0 Total 1 Past Encounters Encounter ID Performer Location Encounter Start Date Encounter Closed Date Diagnosis/Indication Diagnosis SNOMED-CT Code Diagnosis ICD10 Code Diagnosis Note [id number] Bess Plummerkeara [place] [address] [address] 03/12/2020 09:36:43 03/12/2020 10:36:25 Gynecologic examination 83205169 Z01.419 Suggested Calcium with Vitamin D 1200-1500m g daily. Patient advised to get an annual flu shot in the fall and she could obtain at [facility] or [facility] take care clinic. Also to obtain TDap vaccinatio n if you have not had one in the last 10 years. Recommend yearly mammograms . Encouraged monthly self breast exams. Order given. Encourage safe sexual practices, to use condoms and limit partners if not already in a monogamous relationsh ip. Engage in daily exercise of low impact aerobic exercise 45-60 minutes 4-5 times weekly. Avoid tobacco and illicit drugs as well as using moderation with alcohol intake less than 1-2 8 oz beverages daily. This lifestyle behavior pattern will lead to less health conditions and longer life span. If BMI greater than 25 weight watchers or dietary consult advised. All questions have been answered. Patient appears to understand informatio n, but if you have any questions please call or respond to this email. [id number] Bess Buck [place] [address] [address] 03/29/2021 10:23:40 03/29/2021 11:29:05 Gynecologic examination 15923089 Z01.419 Z11.51 Suggested Calcium with Vitamin D 1200-1500m g daily. Patient advised to get an annual flu shot in the fall and she could obtain at [facility] or [facility] clinic. Also to obtain TDap vaccinatio n if you have not had one in the last 10 years. Recommend yearly mammograms . Encouraged monthly self breast exams. Order given. Encourage safe sexual practices, to use condoms and limit partners if not already in a monogamous relationsh ip. Engage in daily exercise of low impact aerobic exercise 45-60 minutes 4-5 times weekly. Avoid tobacco and illicit drugs as well as using moderation with alcohol intake less than 1-2 8 oz beverages daily. This lifestyle behavior pattern will lead to less health conditions and longer life span. If BMI greater than 25 weight watchers or dietary consult advised. All questions have been answered. Patient appears to understand informatio n, but if you have any questions please call or respond to this email. Vaginitis 55973909 N76.0 Occasional bilateral labial itching and some itching around clitoris. Slight irritation noted. Will treat with diflucan. If no resolution of symptoms pt will call us. [id number] AKSHAT Wick [place] [address] [address] 05/30/2022 11:48:41 05/30/2022 13:50:28 Abnormal uterine bleeding 1166507675 9100 N93.9 Gynecologi c examination 31452891 Z01.419 Suggested Calcium with Vitamin D 1200-1500m g daily. Patient advised to get an annual flu shot in the fall and she could obtain at [facility] or [facility] take care clinic. Also to obtain TDap vaccinatio n if you have not had one in the last 10 years. Recommend yearly mammograms . Encouraged monthly self breast exams. Encourage safe sexual practices, to use condoms and limit partners if not already in a monogamous relationsh ip. Engage in daily exercise of low impact aerobic exercise 45-60 minutes 4-5 times weekly. Avoid tobacco and illicit drugs as well as using moderation with alcohol intake less than 1-2 8 oz beverages daily. This lifestyle behavior pattern will lead to less health conditions and longer life span. If BMI greater than 25 weight watchers or dietary consult advised. All questions have been answered. Patient appears to understand informatio n, but if you have any questions please call or respond to this email. WWEBC - Partner with vasectomyP eriods are painful/he junior over the past 1 year. Periods last 4-6 days. Changing tampons/pa ds every 30min-1 hour at times. Significan t cramping during her periods.We agreed to update TVUS and labs orderedDis cussed EMB may be needed pending u/s resultWe discussed management options pending workup. Not a candidate for estrogen containing BC. Discussed progestin only methods. Unsure about IUD, informatio n given. She is interested in discussing an ablation.S he will f/u for MD consultHx of abnormal pap 8 years ago, normals sincePap done todaySTI testing added to papUTD with PCP, recent CBC done with PCP - started on ironMammog lu is UTDColonos copy due, she will schedule this through her GI providerRT C for pelvic u/s and f/uED precaution s discussed Time spent in visit is a total of 30 mins with at least 50% of visit consisting of counseling and review of plan of care. Venereal d isease screening 411294009 Z11.3 [id number] Cielo Spears [place] [address] [address] 06/02/2022 10:49:42 06/02/2022 11:53:50 Abnormal uterine bleeding 5672790155 9100 N93.9 [id number] Joni Walker MD [place] [address] [address] 06/14/2022 11:19:35 06/14/2022 16:23:41 Menorrhagia 827351055 N92.0 Dysmenorrhea 725357499 N 94.6 Uterine leiomyoma 535166 05 D25.9 This patient is a 46-year-ol d female who presents for ultrasound follow-up. She has severe menorrhagi a and dysmenorrh ea. She has longstandi ng pain and bleeding that is a problem. Affects her quality of life and activities of daily living. She has a very large uterine mass. It is extending off of the fundus of the uterus. We discussed her treatment options. She needs definitive treatment for this large fibroid. We agreed to robotic hysterecto my bilateral salpingect gisel. She understand s the surgery in details. I spent over 40 minutes with the patient. More than 50% was counseling . I did discuss the procedure in detail. I discussed her treatment options in detail. We agreed to move forward with hysterecto my. [id number] Joni Walker MD [place] [address] [address] 06/24/2022 12:32:05 06/27/2022 15:05:10 Uterine leiomyoma 32789468 D25.9 Dysmenorrhea 633953184 N 94.6 Menorrhagia 185890043 N9 2.0 this patient is a 46-year-ol d female who presents for preoperati ve care. She has severe menorrhagi a and dysmenorrh ea. She has a large fibroid. We have agreed to perform robotic assisted hysterecto my with bilateral salpingo-o ophorectom y. She understand s the risks, benefits, and alternativ es. She has completed the informed consent process and is ready to proceed. [id number] Joni Walker MD [place] [address] [address] 07/06/2022 14:50:08 07/06/2022 15:45:18 Menopausal symptom 37572448 E89.41 this patient is a 46-year-ol d female presents for postoperat zoltan care. Her incisions are clean dry and intact. She has some appropriat e postoperat zoltan pain/ discomfort . No bleeding, no foul-smell ing vaginal discharge. No nausea, vomiting, fever, chills. To follow up for routine gynecologi c care. [id number] Joni Walker MD [place] [address] [address] 08/12/2023 11:38:06 08/14/2023 23:15:43 Multiple joint pain 36107655 M25.50 Menopausal symptom 06485 002 E89.41 This patient is a 47-year-ol d female who has concerns about her hormone levels. She is on hormone replacemen t therapy and still has symptoms that are similar to those menopause. She reports hot flashes. Patient has joint pain. The patient has been experienci ng joint pain in multiple joints, her hands, her lower extremitie s distally. Patient thought about an associatio n with her hormones. She is going to be evaluated for rheumatoid arthritis and joint pain. She has evaluation management planned with another doctor. We agreed to check her labs for rheumatoid arthritis. We spent over 20 minutes face-to-fa ce. More than 50% was counseling . Health Concerns Section Related Observation LastModified by Organization Detai ls LastModified Time None Recorded Concern Status LastModified by Organization Details LastModified Time None Recorded Advance Directives Directive N: Payers Encounter Date Sequence Insurance Name Policy Number Policy Valle Covered Member ID Valle Member ID Guarantor Name 06/14/2022 1 [employer] (POS) [id number] Debbie Little [id number] 3 Kelin [place] 06/24/2022 1 [employer] (POS) [id number] Debbie vigil Angel Sidney [id number] 3 Kelin Miles 07/06/2022 1 [employer] (POS) [id number] Debbie Little [id number] Kelin Miles 08/12/2023 1 [employer] (POS) [id number] Debbie vigil Angel Sidney [id number] 3 [facility] Notes Date Note Type Note Provider Name and Address Organization Details Recorded Time 06/14/2022 text/html This patient is a 46-year-old female who presents for ultrasound follow-up. She has severe menorrhagia and dysmenorrhea. She has longstanding pain and bleeding that is a problem. Affects her quality of life and activities of daily living. She has a very large uterine mass. It is extending off of the fundus of the uterus. We discussed her treatment options. She needs definitive treatment for this large fibroid. We agreed to robotic hysterectomy bilateral salpingectomy. She understands the surgery in details. I spent over 40 minutes with the patient. More than 50% was counseling. I did discuss the procedure in detail. I discussed her treatment options in detail. We agreed to move forward with hysterectomy. Joni Walker MD [address] [place], [address], [facility] 06/14/2022 16:22:11 06/24/2022 text/html this patient is a 46-year-old female with severe menorrhagia and dysmenorrhea. She has a large fibroid on her uterus. We agreed to perform robotic assisted hysterectomy with bilateral salpingo-oophorecto my. The patient understands the procedure. The procedure was described to the patient in great detail. the patient also understands the risks. The risks were also explained in detail. She understands that injuries May occur during surgery. She understands these injuries can result in hospitalization, more surgery, and severe illness. She understands there is risk of hemorrhage and infection. Joni Walker MD [address], [place], [address], [facility] 06/29/2022 14:45:23 07/06/2022 text/html this patient is a 46-year-old female presents for postoperative care. Her incisions are clean dry and intact. She has some appropriate postoperative pain/ discomfort. No bleeding, no foul-smelling vaginal discharge. No nausea, vomiting, fever, chills. To follow up for routine gynecologic care. Joni Walker MD [address], [place], [address], [facility] 07/06/2022 15:40:48 08/12/2023 text/html This patient is a 47-year-old female who has concerns about her hormone levels. She is on hormone replacement therapy and still has symptoms that are similar to those menopause. She reports hot flashes. Patient has joint pain. The patient has been experiencing joint pain in multiple joints, her hands, her lower extremities distally. Patient thought about an association with her hormones. She is going to be evaluated for rheumatoid arthritis and joint pain. She has evaluation management planned with another doctor. We agreed to check her labs for rheumatoid arthritis. We spent over 20 minutes [id number]. More than 50% was counseling. Joni Walker MD [address], [place], [address], [facility] 08/14/2023 20:28:53 OBGyn Episode Ob Episode Information Episode Created Date Number of Fetuses Patient Bloodtype Patient rh Status Prepregnancy Weight lbs Domestic Partner Domestic Partner Phone Father Name Journeyman Pressman Status 02/18/20 20 1 CLOSED Fetus Data First Name Last Name Admitted to NICU Weight (g) Sex Living Outcome Pediatric Complications Fetus ID Race Codes Race Delivery Type , Spontane ous [id number] Karson Calculation Initial Karson Date Initial Exam Date Initial Exam Provider Initial Ultrasound Date Last Menstrual Period Date Ultra Sound Weeks Gestation 0 Eighteen To Twenty Week Karson Update Ultra Sound Date Fundal Height At Umbil Quickening Date Ultra Sound Latest Weeks Gestation Final Karson Confirmed By Final Karson Confirmed Date Final Karson Date Ultra Sound Latest Days Gestation 0 0 Menstrual History Last Menstrual Date Menses Monthly On Bcp Conception Prior Menses Frequency Hcg Plus Date Menarche Onset Age Delivery Information Delivery Date Delivery Type Labor Anesthesia Weeks Gestation Incision Type Labor Labor Length Hrs Delivered By Post Complications Tubal Sterilization Discharge Date Comments 2 when pt was 16yrs old , section D&C Discharge Information Feeding Method Contraceptive Method Maternal HG B and HCT Levels
== END 2024-07-23 08:02 | disposition home or self-care (01) ==
PROVIDERS: PCP Emergency Medicine; Visit Provider Nurse Practitioner
DX: R10.12 Left upper quadrant pain (principal)
CPT/HCPCS: 78226; A9537

== ENCOUNTER 2024-08-19 15:03 | Outpatient (CLI) | payer OTHER, SELFPAY ==
[2024-08-19 15:18] LABS: Hematocrit 41.3 % (37.0-47.0); Hemoglobin 13.6 g/dL (12.0-15.0)
--- NOTE | 2024-08-19 15:18 | ECG_ITS ---
Test Date: 2024-08-19 15:42:16 Measurements Intervals [place] Rate: 57 P: 27 [place]: 211 QRS: 10 QRSD: 116 T: 20 QT: 426 QTc: 417 Interpretive Statements SINUS BRADYCARDIA WITH FIRST DEGREE AV BLOCK INTRAVENTRICULAR CONDUCTION DELAY LOW QRS VOLTAGE IN PRECORDIAL LEADS BORDERLINE ECG No previous ECG available for comparison Electronically Signed On 08-19-2024 15:54:31 CDT by Rm Kincaid D.O.
[2024-08-19 15:35] LABS: Alanine Aminotransferase 18 U/L (6-35); Albumin Level 4.3 g/dL (3.5-5.1); Alkaline Phosphatase 72 U/L (38-126); Amylase 54 U/L (30-110); Aspartate Amino Transferase 20 U/L (14-36); Bilirubin,Total 0.3 mg/dL (0.2-1.3); Lipase 191 U/L (23-300)
--- OUTSIDE RECORDS SUMMARY | 2024-08-19 17:06 | XMS_ITS | Clinical Summary ---
Author Organization [facility] Address [address] [place] [address] Phone Care Team Providers Care Motor Builder Assembler Name Role Phone Misdavid Mat AMBROSE Primary Care Provider [phone] Allergies No known active allergies Medications omeprazole [...] on file Legal Sex Female 11:29 AM HOT DIP TINNING SUPERVISOR Gender Identity Female 04/15/2020 7:20 AM HOT DIP TINNING SUPERVISOR Sexual Orientation Not on file Obstetrics History Last Filed Vital Signs Vital Sign Reading Time Taken Comments Blood Pressure 143/83 03/28/2022 10:23 AM HOT DIP TINNING SUPERVISOR Pulse 62 03/28/2022 10:23 AM HOT DIP TINNING SUPERVISOR Temperature 36.6 C (97.9 F) 03/28/2022 10:23 AM HOT DIP TINNING SUPERVISOR Respiratory Rate 20 03/28/2022 10:23 AM HOT DIP TINNING SUPERVISOR Oxygen Saturation 96% 03/28/2022 10:23 AM HOT DIP TINNING SUPERVISOR Inhaled Oxygen Concentration - - Weight 117.9 kg (260 lb) 03/28/2022 10:23 AM HOT DIP TINNING SUPERVISOR Height 180.3 cm (5' 11 ) 03/28/2022 10:23 AM HOT DIP TINNING SUPERVISOR Body Mass Index 36.26 03/28/2022 10:23 AM HOT DIP TINNING SUPERVISOR Plan of Treatment Health Maintenance Due Date [...] compared to prior imaging studies performed at [facility] on 04/15/2020, 04/27/2021 and 07/29/2022. The [...] compared to prior imaging studies performed at [facility] on 04/15/2020, 04/27/2021 and 07/29/2022. The breasts are almost entirely fatty. There is no suspicious abnormality in either breast. Impression: There is no mammographic evidence of malignancy. Annual screening mammography is recommended. OVERALL FINAL ASSESSMENT: BI-RADS CATEGORY 1: Negative. us Self Screening Mammogram IMG MAMMO PROCEDURES Fi nal Result from Last 3 Months or Most Recently Relevant to Health Maintenance [facility]/O Address: [facility] [id number] [place] [id number] [facility] Care Teams Motor Builder Assembler Relationship Specialty Start Date End Date Mat Sifuentes DO PCP - General Family Medicine 04/05/22
--- OUTSIDE RECORDS SUMMARY | 2024-08-19 17:06 | XMS_ITS | Referral Summary ---
Author Organization [facility] Address [address] [facility] [address] [place] [address] Phone Care Team Providers Care Clothing Man Name Role Phone MisdavidMat DO Primary Care Provider [phone] Allergies No known active allergies Medications omeprazole [...] on file Legal Sex Female 11:29 AM LABORATORY AIDE Gender Identity Female 04/15/2020 7:20 AM LABORATORY AIDE Sexual Orientation Not on file Last Filed Vital Signs Vital Sign Reading Time Taken Comments Blood Pressure 143/83 03/28/2022 10:23 AM LABORATORY AIDE Pulse 62 03/28/2022 10:23 AM LABORATORY AIDE Temperature 36.6 C (97.9 F) 03/28/2022 10:23 AM LABORATORY AIDE Respiratory Rate 20 03/28/2022 10:23 AM LABORATORY AIDE Oxygen Saturation 96% 03/28/2022 10:23 AM LABORATORY AIDE Inhaled Oxygen Concentration - - Weight 117.9 kg (260 lb) 03/28/2022 10:23 AM LABORATORY AIDE Height 180.3 cm (5' 11 ) 03/28/2022 10:23 AM LABORATORY AIDE Body Mass Index 36.26 03/28/2022 10:23 AM LABORATORY AIDE Plan of Treatment Not on file Procedures [...] compared to prior imaging studies performed at [facility] on 04/15/2020, 04/27/2021 and 07/29/2022. The [...] compared to prior imaging studies performed at [facility] on 04/15/2020, 04/27/2021 and 07/29/2022. The [...] Relevant to Health Maintenance Insurance Care Teams Clothing Man Relationship Specialty Start Date End Date Mat Sifuentes DO PCP - General Family Medicine 04/05/22
== END 2024-08-19 15:04 | disposition home or self-care (01) ==
PROVIDERS: PCP Emergency Medicine; Referring Provider Surgery; Visit Provider Anesthesiology
DX: Z01.818 Encounter for other preprocedural examination (principal); I44.0 Atrioventricular block, first degree; R00.2 Palpitations; I45.89 Other specified conduction disorders; D64.9 Anemia, unspecified; K80.10 Calculus of gallbladder with chronic cholecystitis without obstruction
CPT/HCPCS: 36415; 80076; 82150; 83690; 85014; 85018; 86850; 86900; 86901; 93005

== ENCOUNTER 2024-08-26 00:56 | Day surgery (SDC) | payer OTHER, SELFPAY ==
[2024-08-19 09:56] VITALS: BMI 43.0
--- NOTE | 2024-08-19 09:57 | PC.NURSE ---
Report to the Outpatient Waiting Room, entrance under the green pavilion located off [facility], at time ___1130____ on date ___08/26/24____. Planned Procedure Time: ____1330 (1:30pm)____.? Time changes happen often and if your time is changed the preop area will call you the afternoon before. - You and your visitor will be asked to self-screen and do not enter if you have any COVID symptoms. Please call surgeon if you need to reschedule. - A mask is optional within the hospital at this time. Patients may have clear liquids (water, carbonated beverages, clear teas, apple juice) until 3 hours prior to surgery with a maximum of 20 ounces. - No food from midnight until time of surgery and no smoking, or chewing tobacco (or any form of nicotine). No chewing gum, candy or mints. Take only the following medications with a SIP of water on the morning of surgery: ____bupropion, clonazepam, cyclobenzaprine, metoprolol, sumatriptan____ DO NOT STOP ANY OF YOUR OTHER PRESCRIPTION MEDICATIONS PRIOR TO SURGERY EXCEPT THE FOLLOWING Hold all vitamins and supplements for 3 days per anesthesiologist. Medications to discontinue per physician ____Please HOLD tirzepatide for 10 days prior to surgery Please no make-up, nail swiss, hairspray, perfume, deodorant, or body powder the day of surgery.? No jewelry (including any body piercings) or valuables the day of surgery, leave them at home.? Please take a shower or bath the night before, or the morning of, surgery with an antibacterial soap.? Wear comfortable, loose fitting clothing.? - Jewelry must be removed prior to entering the operating room.? Rings and piercings that are not removed may be cut off. - The hospital will not accept responsibility for valuables.? - Please leave all valuables, including medications, at home the day of surgery. If you are going home after surgery, a licensed driver courier must drive you home.? - NO public transportation without another adult if you receive anesthesia. - We recommend that an adult stay with you for 24 hours following discharge. - We also recommend that you do not drive, make important decision, drink alcoholic beverages, or take any drugs that were not prescribed by your health care provider for at least 24 hours after your discharge time. Follow any additional instructions given to you from your surgeon. Telephone instructions given to Kelin and asked if any additional questions and then verbalized understanding. Patient advised to call surgeon office or pre surgery nurse liaison [phone] if any additional questions.
[2024-08-26] VITALS (9 sets, daily range): BP systolic 112–151; BP diastolic 62–82; PULSE 54–66; RESP 11–17; TEMP 36.1–36.2; O2SAT 93–100; BMI 42.0
--- OUTSIDE RECORDS SUMMARY | 2024-08-26 00:59 | XMS_ITS | Referral Summary ---
Author Organization [facility] Address [address] [place] [address] Phone Care Team Providers Care Waiter/Waitress Informal Name Role Phone MisdavidMat DO Primary Care Provider [phone] Allergies No known active allergies Medications omeprazole [...] on file Legal Sex Female 11:29 AM STRATEGIC PLANNING SPECIALIST Gender Identity Female 04/15/2020 7:20 AM STRATEGIC PLANNING SPECIALIST Sexual Orientation Not on file Last Filed Vital Signs Vital Sign Reading Time Taken Comments Blood Pressure 143/83 03/28/2022 10:23 AM STRATEGIC PLANNING SPECIALIST Pulse 62 03/28/2022 10:23 AM STRATEGIC PLANNING SPECIALIST Temperature 36.6 C (97.9 F) 03/28/2022 10:23 AM STRATEGIC PLANNING SPECIALIST Respiratory Rate 20 03/28/2022 10:23 AM STRATEGIC PLANNING SPECIALIST Oxygen Saturation 96% 03/28/2022 10:23 AM STRATEGIC PLANNING SPECIALIST Inhaled Oxygen Concentration - - Weight 117.9 kg (260 lb) 03/28/2022 10:23 AM STRATEGIC PLANNING SPECIALIST Height 180.3 cm (5' 11 ) 03/28/2022 10:23 AM STRATEGIC PLANNING SPECIALIST Body Mass Index 36.26 03/28/2022 10:23 AM STRATEGIC PLANNING SPECIALIST Plan of Treatment Not on file Procedures [...] compared to prior imaging studies performed at [facility] on 04/15/2020, 04/27/2021 and 07/29/2022. The [...] compared to prior imaging studies performed at [facility] on 04/15/2020, 04/27/2021 and 07/29/2022. The [...] Relevant to Health Maintenance Insurance Care Teams Waiter/Waitress Informal Relationship Specialty Start Date End Date Mat Sifuentes DO PCP - General Family Medicine 04/05/22
--- OUTSIDE RECORDS SUMMARY | 2024-08-26 00:59 | XMS_ITS | Patient Health Record ---
Author Organization [facility] Address [address] [place] [address] Care Team Providers Care Mill Roll Operator Name Role Phone Rajan Rogers MD Primary Care Provider Unavail able Josue Ward Unavailable [phone] Migration, Provider Unavailable Unavailable Allergies No Known Allergies Results Component Value Reference Range Notes UDT Reviewed date:05/24/2024 06:06:48 PM Interpretation: Performing Lab: Notes/Report: THC N 0 - 50 ng/ml Cocaine N 0 - 300 ng/ml Amphetamine N 0 - 1000 ng/ml Buprenorphine (BUP) N 0 - 10 ng/ml Secobarbital (Bar) N 0 - 300 ng/ml Oxazepam (BZO) N 0 - 300 ng/ml 8-ljscbrebiq-7,2-cahcliht-5,3-diphenylpyrrolidine (RADHA P) N 0 - 300 ng/ml Methamphetamine (MET) N 0 - 1000 ng/ml Methylenedioxymethamphetamine (MDMA) N 0 - 500 ng/ml Morphine (MOP 300/DIK4905) N 0 - 300 ng/ml Methadone (MTD) N 0 - 300 ng/ml Phencyclidine (PCP) N 0 - 25 ng/ml Nortriptyline (TCA) N 0 - 1000 ng/ml Oxycodone N 0 - 300 ng/ml x N 0 - 300 ng/ml Reason For Referral No Information Medications Medication SIG (Take, Route, Frequency, Duration) Notes Start Date End Date Status MICROLET MISCELLANEOUS *Reorder from [facility] for eRx and Interaction Alerts* 08/18/2023 [...] cine 2nd dose Unknown 01/09/2022 Administered Novel [id number], preservative free Unknown 02/08/2018 Administered Influenza, injectable, [...] disorder, most recent episode mixed, in remission (67387676) Bipolar disorder, currently in remission, most recent episode unspecified (F31.70) Active confirmed Problem Generalized anxiety disorder (87745004) Generalized anxiety disorder (F41.1) Active confirmed Problem Insomnia 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 (08049849) Insomnia due to other mental disorder (F51.05) Active confirmed Vital Signs Heart Rate 80 /min 05/24/2024 Height-cm 180.34 cm 05/24/2024 Blood pressure diastolic 85 mm Hg 05/24/2024 Weight-kg 137.44 kg 05/24/2024 Height 71.00 in 05/24/2024 Blood pressure systolic 122 mm Hg 05/24/2024 Weight 303 lbs 05/24/2024 BMI 42.26 kg/m2 05/24/2024 Encounters Encounter Location Date Provider Diagnosis [facility] [employer] [place] [id number] [facility] [address] [address] 12/18/2023 Josue Ward Generalized anxiety disorder F41.1 ; Insomnia due to other mental disorder F51.05 ; Other alf (current) drug therapy Z79.899 and Bipolar disorder, currently in remission, most recent episode unspecified F31.70 [facility] [employer] [place] [address] [facility] [address] [address] 04/04/2024 Josue Ward Generalized anxiety disorder F41.1 ; Insomnia due to other mental disorder F51.05 ; Other alf (current) drug therapy Z79.899 and Bipolar disorder, currently in remission, most recent episode unspecified F31.70 [facility] [employer] [facility] [address] [facility] [address] [address] 05/24/2024 Josue Ward Generalized anxiety disorder F41.1 ; Insomnia due to other mental disorder F51.05 ; Other meterman (current) drug therapy Z79.899 and Bipolar disorder, currently in remission, most recent episode unspecified F31.70 [employer] [place] [address] [facility] [address] [address] 08/29/2023 Provider Migration [employer] [place] [address] [address] 09/16/2023 [facility] [address] [place] [address] 09/17/2023 Provider [facility] [address] [place] [address] 12/28/2023 [facility] [address] [place] [address] 12/29/2023 [facility]eter [facility] [address] [place] [address] 08/10/2024 [facility] [address] [facility] [address] [place] [address] 08/10/2024 Josuepeter Ward Assessments Encounter Date Diagnosis (ICD Code) Assessment Notes Treatment Notes Treatment Clinical Notes Section Notes 05/24/2024 Generalized anxiety disorder (ICD-10 - F41.1) Clonazepam 0.5mg od prn 04/04/2024 Generalized anxiety disorder (ICD-10 - F41.1) [...] dosage and discuss any ongoing concerns. 12/18/2023 Generalized anxiety disorder (ICD-10 - F41.1) [...] 5. Pharmacy: - Patient prefers to use [facility] pharmacy for medications. Plan: - Send all medication refills to [facility] pharmacy as requested by the patient. [...] 5. Pharmacy: - Patient prefers to use [facility] pharmacy for medications. Plan: - Send all medication refills to [facility] pharmacy as requested by the patient. Follow-up: - Schedule a follow-up appointment in three months. - Encourage the patient to call if they have any concerns or worsening symptoms before the next appointment. 12/18/2023 Other meterman (current) drug therapy (ICD-10 - Z79.899) 1. [...] 5. Pharmacy: - Patient prefers to use [facility] pharmacy for medications. Plan: - Send all medication refills to [facility] pharmacy as requested by the patient. Follow-up: - Schedule a follow-up appointment in three months. - Encourage the patient to call if they have any concerns or worsening symptoms before the next appointment. 04/04/2024 Insomnia due to other mental disorder [...] dosage and discuss any ongoing concerns. 05/24/2024 Insomnia due to other mental disorder (ICD-10 - F51.05) Trazodone 0.5 to 1 tablet hs prn 05/24/2024 Other meterman (current) drug therapy (ICD-10 - Z79.899) 12/18/2023 [...] 5. Pharmacy: - Patient prefers to use [facility] pharmacy for medications. Plan: - Send all medication refills to [facility] pharmacy as requested by the patient. Follow-up: - Schedule a follow-up appointment in three months. - Encourage the patient to call if they have any concerns or worsening symptoms before the next appointment. 04/04/2024 Other meterman (current) drug therapy (ICD-10 - Z79.899) 1. [...] dosage and discuss any ongoing concerns. 05/24/2024 Bipolar disorder, currently in remission, most [...] Treatment Next Appt Details Provider Name:Josue lamb, 08/29/2024 09:15:00 AM, [address] [facility] [facility], [place], [address], Insurance Providers Payer Name Payer Address Payer Phone Subscriber Number Group Number Insured Name Patient Relationship to Insured Coverage Start Date Coverage End Date [employer] Pos [address] [place] [phone] [id number] NANCY PIERRE Self - patient is the insured Medical (General) History Medical History History ICD Code Problems: Bipolar disorder in remission Body mass index 30+ - obesity Generalized anxiety disorder Insomnia disorder related to another men bhaskar disorder Long-term current use of drug therapy , Surgical History Surgery Date(Month/Year) Oophorectomy (44311) 06/29/2022 Hysterectomy (62483) 06/29/2022 Other 08/31/2009
--- OUTSIDE RECORDS SUMMARY | 2024-08-26 00:59 | XMS_ITS | Clinical Summary ---
Author Organization [facility] Address [address] [facility] [place] [address] Phone Care Team Providers Care Press Machine Operator Name Role Phone Misdavid Mat AMBROSE Primary Care Provider [phone] Allergies No known active allergies Medications omeprazole [...] on file Legal Sex Female 11:29 AM REHAB SERVICES AIDE Gender Identity Female 04/15/2020 7:20 AM REHAB SERVICES AIDE Sexual Orientation Not on file Obstetrics History Last Filed Vital Signs Vital Sign Reading Time Taken Comments Blood Pressure 143/83 03/28/2022 10:23 AM REHAB SERVICES AIDE Pulse 62 03/28/2022 10:23 AM REHAB SERVICES AIDE Temperature 36.6 C (97.9 F) 03/28/2022 10:23 AM REHAB SERVICES AIDE Respiratory Rate 20 03/28/2022 10:23 AM REHAB SERVICES AIDE Oxygen Saturation 96% 03/28/2022 10:23 AM REHAB SERVICES AIDE Inhaled Oxygen Concentration - - Weight 117.9 kg (260 lb) 03/28/2022 10:23 AM REHAB SERVICES AIDE Height 180.3 cm (5' 11 ) 03/28/2022 10:23 AM REHAB SERVICES AIDE Body Mass Index 36.26 03/28/2022 10:23 AM REHAB SERVICES AIDE Plan of Treatment Health Maintenance Due Date [...] compared to prior imaging studies performed at [facility] on 04/15/2020, 04/27/2021 and 07/29/2022. The breasts [...] compared to prior imaging studies performed at [facility] on 04/15/2020, 04/27/2021 and 07/29/2022. The breasts are almost entirely fatty. There is no suspicious abnormality in either breast. Impression: There is no mammographic evidence of malignancy. Annual screening mammography is recommended. OVERALL FINAL ASSESSMENT: BI-RADS CATEGORY 1: Negative. us Self Screening Mammogram IMG MAMMO PROCEDURES Fi nal Result from Last 3 Months or Most Recently Relevant to Health Maintenance [facility] H[facility] Care Teams Press Machine Operator Relationship Specialty Start Date End Date Mat Sifuentes DO PCP - General Family Medicine 04/05/22
--- OUTSIDE RECORDS SUMMARY | 2024-08-26 00:59 | XMS_ITS | Data Portability ---
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 Plan of Treatment Reminders Order Date Submit Date Provider Last Modified By Organization Details Last Modified Time Details Appointments None recorded. Lab hormone panel, serum or plasma 2023 024 [facility] (Lab), [address] [place], [address], 4 05:12:53 MAZIN + rf (antinuclea r antibodies + rheumatoid factor), quantitativ e, serum 2023 024 [email or web address] 1 [facility] (Lab), [address] [place], [address], 4 11:49:44 C-reactive protein, quantitativ e, serum or plasma 2023 024 [facility] (Lab), [address] [place], [address], 4 05:12:53 ESR (erythrocyt e sedimentati on rate), blood 2023 024 [facility] (Lab), [address] [place], [address], 4 05:12:52 Referral None recorded. Procedures None recorded. Surgeries robotic assisted hysterectom y with salpingecto my (SURG) 2022 023 [facility], [address], [place], [address], 3 17:18:36 Imaging None recorded. Medication Orders estradiol 1 mg tablet 2022 023 [email or web address] 1 [id number], [address], [place], [address], 4 12:09:09 Patient TargetsNo targets recorded. Patient [...] as clini radha castillo nted. Not Available [facility] (Lab) [address], [place], [address], 06/02/2022 10:07:44 05/30/19 23 05/30/2022 CT/GC (CRISS) , THINP REP VIAL chlamydia trachomatis, PCR Negati ve negati ve Not Available [facility] (Lab) [address], [place], [address], 06/02/2022 10:07:44 05/30/19 23 05/30/2022 CT/GC (CRISS) , THINP REP VIAL neisseria gonorrhoeae, PCR Negati ve negati ve Not Available [facility] (Lab) [address], [place], [address], 06/02/2022 10:07:44 05/30/19 23 05/30/2022 TRICH OMONA S VAGIN VANCE (RRNA ) trichomonas vaginalis ribosomal RNA (rrna) Negati ve negati ve Not Available [facility] (Lab) [address], [place], [address], 06/02/2022 10:07:45 05/30/19 23 05/30/2022 DHEA SULFA TE DHEA-sulfate 17 ug/dL Femal e Range s Age(y ) Range (ug/d L) 10-15 34-28 0 15-20 65-36 8 20-25 148-4 07 25-35 99-34 0 35-45 61-33 7 45-55 35-25 6 55-65 19-20 5 65-75 9-246 > 75 12-15 4 Not Available [facility] (Lab) [address], [place], [address], 06/03/2022 17:18:15 05/30/19 23 05/30/2022 HUMAN SEX HORMO NE NAZARIO NG GLOBU HAIM sex hormone binding globulin 48.3 nmole s/L 16.8-1 25.2 Not Available [facility] (Lab) [address], [place], [address], 06/03/2022 17:18:16 05/30/19 23 05/30/2022 TSH, REFLE X FREE T4 TSH 3.26 uIU/m L 0.30-5 .33 Not Available [facility] (Lab) [address], [place], [address], 06/03/2022 17:18:16 05/30/19 23 05/30/2022 PROGE STERO NE progesterone 0.71 NG/mL This assay was perfo rmed using [employer] ratio n reage nts and test kits. Value s obtai meg with other assay metho ds or kits canno t be used [facility] . Femal e Proge stero ne Range s: Folli cular phase 0.06- 0.89 ng/mL Ovula tion phase 0.12- 12.00 ng/mL Lutea l phase 1.83- 23.90 ng/mL Postm enopa usal< 0.05- 0.13 ng/mL Healt hy Pregn ant Women 1st Trime ster1 1.0-4 4.30 2nd Trime ster2 5.40- 83.30 3rd Trime ster5 8.70- 214.0 0 Not Available [facility] (Lab) [address], [place], [address], 06/03/2022 17:18:16 05/30/19 23 05/30/2022 PROLA CTIN prolactin, total 4.92 NG/mL 4.79-2 3.30 This assay was perfo rmed using [employer] n reage nts and test kits. Value s obtai meg with other assay metho ds or kits canno t be used [facility] . Not Available [facility] (Lab) [address], [place], [address], 06/03/2022 17:18:17 05/30/1905/30/2022 FSH, LH, ESTRA DIOL estradiol 66.7 pg/mL This assay was perfo rmed using [employer] n reage nts and test kits. Value s obtai meg with other assay metho ds or kits canno t be used inter [facility] . Femal e Estra diol Range s: Folli cular phase 12.4- 233 pg/mL Ovula tion phase 41.0- 398 pg/mL Lutea l phase 22.3- 341 pg/mL Postm enopa usal< 5-138 pg/mL Healt hy Pregn ant Women 1st Trime ster1 54-32 43 pg/mL 2nd Trime ster1 561-2 1280 pg/mL 3rd Trime ster8 525-> 81787 pg/mL Not Available [facility] (Lab) [address], [place], [address], 06/03/2022 17:18:17 05/30/19 23 05/30/2022 FSH, LH, ESTRA DIOL FSH 5.2 mIU/m L This assay was perfo rmed using [employer] n reage nts and test kits. Value s obtai meg with other assay metho ds or kits canno t be used [facility] . Femal es Folli cular : 3.5-1 2.5 mIU/m L Ovula tion: 4.7-2 1.5 mIU/m L Lutea l: 1.7-7 .7 mIU/m L Postm enopa use: 25.8- 134.8 mIU/m L Not Available [facility] (Lab) [address], [place], [address], 06/03/2022 17:18:17 05/30/1905/30/2022 FSH, LH, ESTRA DIOL LH 5.8 mIU/m L This assay was perfo rmed using [employer] n reage nts and test kits. Value s obtai meg with other assay metho ds or kits canno t be used inter [facility] . Femal es Mid-F ollic ular: 2.4-1 2.6 mIU/m L Mid-C ycle: 14.0- 95.6 mIU/m L Mid-L uteal : 1.0-1 1.4 mIU/m L Postm enopa use: 7.7-5 8.5 mIU/m L Not Available [facility] (Lab) [address] [place], [address], 06/03/2022 17:18:17 05/30/1905/30/2022 TESTO STERO NE, FREE( [...] cteri stics have been deter mined by [employer]. It has not been clear ed or appro mitzy by the FDA. This assay has been valid ated pursu ant to the CLIA regul ation s and is used for clini froilan purpo ses. Not Available [facility] (Lab) [address] [place], [address], 06/03/2022 17:18:18 05/30/1905/30/2022 TESTO STERO NE, FREE( DIALY SIS) AND TOTAL (LC/M S/MS) testosterone , free 1.1 pg/mL 0.1-6. 4 This test was devel oped and its halie tical perfo rmanc e diane cteri stics have been deter mined by [employer]. It has not been clear ed or appro mitzy by the FDA. This assay has been valid ated pursu ant to the CLIA regul ation s and is used for clini froilan purpo ses. Perfo rming Organ izati on Moiz stanleyjas daly: Site ID: [id number] Name: [employer]-Rolando [facility] Addre ss: [id number] [place] [place] [address] Direc tor: Skinny bass M.D. Not Available [facility] (Lab) [address] [place], [address], 06/03/2022 17:18:18 08/16/19 24 08/16/2023 SEDIM ENTAT ION RATE, ESR sedimentatio n rate 24 mm/ho ur (based on docume nted legal sex) 0-20 high Not Available [facility] (Lab) [address], [place], [address], 08/17/2023 05:12:52 08/16/19 24 08/16/2023 CRP (C-RE ACTIV E PROTE IN) C-reactive protein 3.3 mg/L 0.0-10 .0 Not Available [facility] (Lab) [address], [place], [address], 08/17/2023 05:12:53 08/16/19 24 08/16/2023 FSH, LH, ESTRA DIOL estradiol 63.8 pg/mL This assay was perfo rmed using [employer] reage nts and test kits. Value s obtai meg with other assay metho ds or kits canno t be used inter [facility] . Femal e Estra diol Range s: Folli cular phasE 12.4- 233 pg/mL Ovula tion phasE 41.0- 398 pg/mL Lutea l phasE 22.3- 341 pg/mL Postm enopa usal <5-13 8 pg/mL Healt hy Pregn ant Women 1st Trime ster 154-3 243 pg/mL 2nd Trime ster 1561- 00518 pg/mL 3rd Trime ster 8525- >3000 0 pg/mL Not Available [facility] (Lab) [address], [place], [address], 08/17/2023 05:12:53 08/16/19 24 08/16/2023 FSH, LH, ESTRA DIOL FSH 28.5 mIU/m L This assay was perfo rmed using [employer] n reage nts and test kits. Value s obtai meg with other assay metho ds or kits canno t be used inter [facility] . Femal es Folli cular : 3.5-1 2.5 mIU/m L Ovula tion: 4.7-2 1.5 mIU/m L Lutea l: 1.7-7 .7 mIU/m L Postm enopa use: 25.8- 134.8 mIU/m L Not Available [facility] (Lab) [address], [place], [address], 08/17/2023 05:12:53 08/16/19 24 08/16/2023 FSH, LH, [...] use: 7.7-5 8.5 mIU/m L Not Available [facility] (Lab) [address], [place], [address], 08/17/2023 05:12:53 06/02/19 23 06/02/2022 US, pelvi s No observ ation record ed. [email or web address] [facility] [address], [place], [address], 06/02/2022 13:19:33 06/02/19 23 06/02/2022 US, trans vagin al No observ ation record ed. [email or web address] [facility] [address], [place], [address], 06/02/2022 13:19:24 06/02/19 23 06/02/2022 US, pelvi s No observ ation record ed. [email or web address] [address], [place], [address], 06/02/2022 22:29:02 06/30/19 23 06/29/2022 XR, cysto gram No observ ation record ed. [email or web address] [facility] [address], [place], [address], 06/29/2022 20:55:57 Result Notes None recorded. Problems Name Problem SNOMED Code Status Onset Date Resolution Date Notes Provider Name and Address Organization Details Recorded Time Body mass index 30+ - obesity 111410453 Active 2018 Body mass index (BMI) 35.0-35.9, adult;Brandon rded Elsewhere: No Locatio n: [facility] rce: EHR Chroni c: N Practice ID: [id number] Imelda ble Time: 08:30:00 AM Not Available [facility] 3 14:49:20 Abnormal cervical Papanicol aou smear 213994515 Active 2023 Layla kinney [facility] 4 12:11:37 Human papilloma virus infection 931758377 Active 2023 Layla kinney [facility] 4 12:11:44 Mixed anxiety and depressiv e disorder 795574449 Active 2023 Layla kinney [facility] 4 12:12:07 Problem Notes None recorded. Procedures Surgical History Date Name Laterality Status Provider Name and Address Organization Details Recorded Time 06/30/19 23 ROBOTIC ASSISTED HYSTERECTOMY WITH SALPINGECTOMY (SURG) completed Xochilt Arndt [facility] 06/30/2022 09:56:48 05/30/19 23 Date of Last Pap Smear completed Layla Stephenson [facility] 08/12/2023 12:19:27 04/29/20 21 Date of Last Mammogram completed Layla Stephenson [facility] 08/12/2023 12:21:12 08/10/19 19 completed Mignon Flor [facility] 03/29/2021 10:39:27 06/18/19 16 Colposcopy completed Mignon Flor [facility] 03/24/2021 16:13:23 06/18/19 16 Colposcopy completed Layla Stephenson [facility] 08/12/2023 12:23:46 05/07/19 16 endometrial biopsy completed Layla Stephenson [facility] 08/12/2023 12:24:01 05/01/19 01 Gastric Bypass completed Nilsa [facility] 02/18/2020 16:32:43 05/01/18 92 Dilation and Curettage completed Nilsa [facility] 02/18/2020 16:33:02 Imaging Results Imaging Date Name Status LastModified by Organization Details LastModified Time 06/02/2022 US, pelvis completed [email or web address] [place] [address], [place], [address], 06/02/2022 13:19:33 06/02/2022 US, transvaginal completed [email or web address] [facility] [address], [place], [address], 06/02/2022 13:19:24 06/02/2022 US, pelvis completed [email or web address] [address] [facility], [place], [address], 06/02/2022 22:29:02 06/29/2022 XR, cystogram completed [email or web address] [facility] [address], [place], [address], 06/29/2022 20:55:57 Procedure Notes None recorded. Medical [...] Prescrib ed Elsewher e: Yes Loca tion: [facility] odify By: farshad wetzel DateTime : 02/03/20 [...] Prescrib ed Elsewher e: Yes Loca tion: [facility] odify By: farshad wetzel DateTime : 03/17/20 [...] tablet TAKE 1 TABLET BY MOUTH DAILY (PATIENT NEEDS TO SCHEDULE APPOINTM ENT BEFORE NEXT REFILL) 2024 active Not Available Not Available Not Avai lable insulin syringe U-100 with needle 1 mL 31 gauge x 5/16 USE EVERY OTHER WEEK FOR INJECTIO NS 03/24 completed Not Available Not Available Not Available hydrochlo rothiazid e 25 mg tablet take 1 tablet by oral route every day 05/30 completed Prescrib ed Fermín e: Yes Loca tion: Skye yaritza [facility] odify By: farshad wetzel DateTime : 02/03/20 [...] Prescrib ed Elsewher e: Yes Loca tion: [facility] odify By: win santiagounter DateTime : 08/10/19 19 08:30:00 AM Not [...] Prescrib ed Elsewher e: Yes [facility] By: win santiagounter DateTime : 08/10/19 19 08:30:00 AM Not Available Not Available Not Available bupropion HCl (bulk) 100 % powder 05/30 completed Prescrib ed Elsewher e: Yes Loca tion: Skye vigil [facility] odify By: farshad santiagounter DateTime : 02/03/20 17 08:45:00 AM Not [...] Prescrib ed Elsewher e: Yes [facility] od[facility] By: alirio santiago DateTime : 03/17/20 15 02:00:00 PM Not Available Not Available Not Available B12 5,000 mcg-100 mcg sublingua l lozenge 05/30 completed Prescrib ed Elsewher e: Yes Loca [facility]ion[facility] odify By: win santiagount DateTime : 08/10/19 19 08:30:00 AM Not Available Not Available Not Available B12 05/30 completed Not Available Not Available Not Available Contour Next Test Strips TEST BLOOD SUGAR ONCE DAILY active Not Available Not Available No t Available Multi Vitamin 9 mg iron/15 mL oral liquid 08/11 completed Prescrib ed Elsewher e: Yes Loca tion: Skye yaritza [facility] M odestephania By: tmliborio Vigil ncounter DateTime : 08/10/19 08:30:00 AM Not Available [...] Details Last Updated DateTime 06/14/2022 160.02 cm 182900.9 7 g 51.7 kg/m2 120 mm[Hg] 82 mm[Hg] [facility] 3 11:56:29 Date Recorded Body height Body mass index (BMI) Body weight Systolic blood pressure Diastolic blood pressure Provider Name and Address Organization Details Last Updated DateTime 06/24/2022 160.02 cm 52.4 kg/m2 908792.3 4 g 115 mm[Hg] 79 mm[Hg] [facility] 3 13:05:48 Date Recorded Body height Body mass index (BMI) Body weight Systolic blood pressure Diastolic blood pressure Provider Name and Address Organization Details Last Updated DateTime 07/06/2022 160.02 cm 51.9 kg/m2 407005.5 6 g 135 mm[Hg] 85 mm[Hg] Ana Laura Iqbal [facility] 3 15:01:39 Date Recorded Body height Body mass index (BMI) Body weight Systolic blood pressure Diastolic blood pressure Provider Name and Address Organization Details Last Updated DateTime 08/12/2023 160.02 cm 54.9 kg/m2 768780.6 3 g 115 mm[Hg] 78 mm[Hg] Layla Stephenson [facility] 4 12:08:10 Social History Question Answer Notes LastModified by Organizat ion Details LastModified Time Tobacco Smoking Status Current Every Day Smoker Ana Laura Iqbal gregoria [facility] 07/06/2022 15:01:55 Do You Have [...] Or The Highest Degree You Have Received? 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 [id number] Information not available 05/30/2022 Do You Use [...] LastModified Time Mother Malignant tumor of cervix jgumber Not available 2019 16:26:19 Mother Hypercholest erolemia jgumber Not available 2019 16:27:32 Mother Hypertensive disorder jgumber Not available 2019 16:29:54 Mother Malignant neoplasm of ovary jgumber Not available 2019 16:30:10 Father Hypercholest erolemia jgumber Not available 2019 16:27:32 Father Hypertensive disorder jgumber Not available 2019 16:29:54 Maternal Grandfather Hypercholest erolemia jgumber Not available 2019 16:27:32 Maternal Grandfather Hypertensive disorder jgumber Not available 2019 16:29:54 Maternal Grandfather Diabetes mellitus jgumber Not available 2019 16:31:04 Maternal Grandfather History of cardiovascul ar disease [email or web address] Not available 06/24 12:32:52 Maternal Uncle Hypercholest erolemia jgumber Not available 2019 16:27:32 Maternal Uncle Hypertensive disorder jgumber Not available 2019 16:29:54 Maternal Uncle Diabetes mellitus jgumber Not available 2019 16:31:04 Maternal Aunt Hypercholest erolemia jgumber Not available 2019 16:27:32 Maternal Aunt Hypertensive disorder jgumber Not available 2019 16:29:54 Maternal Aunt History of cardiovascul ar disease [email or web address] Not available 06/24 12:32:52 Sister Hypertensive disorder [...] (Food, seasonal, environmental ) Y Other Y Blood Transfusion N Breast Cancer N Drug/Latex Allergies/Reactions N Dermatologic Disorders N Lung Disease N Defects or Inherited Disease N Breast Problem N Gestational Diabetes N Hematologic disorders N Anesthesia Complications N History of STI Y Deep Vein Thrombosis N Polycystic ovary syndrome Y Anxiety Disorder Y Autoimmune disease N Arthritis N Polyps N Infertility Y Acid Reflux (GERD) Y History of abnormal pap Y Cancer N Varicosities N Stroke N Neurologic/Epilepsy N Endometriosis N High Cholesterol N Fibromyalgia N Headaches Y Kidney Disease N Heart Problems N Thyroid Problems N Kidney or Bladder Problems N GI Problems Y Eating Disorder [...] SNOMED-CT Code Diagnosis ICD10 Code Diagnosis Note [id number] Bess Buck [facility] [address] [address] 03/12/2020 09:36:43 03/12/2020 10:36:25 Gynecologic examination 58464627 Z01.419 Suggested Calcium with Vitamin D 1200-1500m g daily. Patient advised to get an annual flu shot in the fall and she could obtain at [facility] or [facility]. Also to obtain TDap vaccinatio n if [...] please call or respond to this email. [id number] Bess Buck [facility] [address] [address] 03/29/2021 10:23:40 03/29/2021 11:29:05 Gynecologic examination 63321752 Z01.419 Z11.51 Suggested Calcium with Vitamin D 1200-1500m g daily. Patient advised to get an annual flu shot in the fall and she could obtain at [facility] or [facility] clinic. Also to obtain TDap vaccinatio n [...] call or respond to this email. Vaginitis 32268687 N76.0 Occasional bilateral labial itching and some itching around clitoris. Slight irritation noted. Will treat with diflucan. If no resolution of symptoms pt will call us. [id number] AKSHAT Wick [facility] [address] [address] 05/30/2022 11:48:41 05/30/2022 13:50:28 Abnormal uterine bleeding 5344392817 9100 N93.9 Gynecologi c examination 69735362 Z01.419 Suggested Calcium with Vitamin D 1200-1500m g daily. Patient advised to get an annual flu shot in the fall and she could obtain at [facility]. Also to obtain TDap [...] plan of care. Venereal d isease screening 553634661 Z11.3 [id number] Cielo Spears [facility] [address] [address] 06/02/2022 10:49:42 06/02/2022 11:53:50 Abnormal uterine bleeding 8899079826 9100 N93.9 [id number] Joni Walker MD [facility] [address] [address] 06/14/2022 11:19:35 06/14/2022 16:23:41 Menorrhagia 692463479 N92.0 Dysmenorrhea 499916636 N 94.6 Uterine leiomyoma 398212 05 D25.9 This patient is a 46-year-ol [...] agreed to move forward with hysterecto my. [id number] Joni Walker MD [facility] [address] [address] 06/24/2022 12:32:05 06/27/2022 15:05:10 Uterine leiomyoma 97860527 D25.9 Dysmenorrhea 239876404 N 94.6 Menorrhagia 362896915 N9 2.0 this patient is a 46-year-ol d female who presents for preoperati ve care. She has severe menorrhagi a and dysmenorrh ea. She has a large fibroid. We have agreed to perform robotic assisted hysterecto my with bilateral salpingo-o ophorectom y. She understand s the risks, benefits, and alternativ es. She has completed the informed consent process and is ready to proceed. [id number] Joni Walker MD [facility] [address] [address] 07/06/2022 14:50:08 07/06/2022 15:45:18 Menopausal symptom 92166963 E89.41 this patient is a 46-year-ol d female presents for postoperat zoltan care. Her incisions are clean dry and intact. She has some appropriat e postoperat zoltan pain/ discomfort . No bleeding, no foul-smell ing vaginal discharge. No nausea, vomiting, fever, chills. To follow up for routine gynecologi c care. [id number] Joni Walker MD [facility] [address] [address] 08/12/2023 11:38:06 08/14/2023 23:15:43 Pain of multiple joints 14881813 M25.50 Menopausal symptom 21055 002 E89.41 This patient is a 47-year-ol [...] ID Guarantor Name 06/14/2022 1 [employer] (POS) [id number] Debbie vigil Angel [place] [id number] 3 Kelin [place] 06/24/2022 1 [employer] (POS) [id number] Debbie yaritza Ortiz [place] [id number] 3 Kelin [place] 07/06/2022 1 [employer] (POS) [id number] Debbie vigil Angel [place] [id number] 3 Kelin [place] 08/12/2023 1 [employer] (POS) [id number] Debbie vigil Angel [place] [id number] 3 Kelin Miles Notes Date Note Type Note Provider Name [...] hysterectomy. Joni Walker MD [address], [place], [address], [facility] 06/14/2022 16:22:11 06/24/2022 text/html this patient [...] infection. Joni Walker MD [address], [place], [address], [facility] 06/29/2022 14:45:23 07/06/2022 text/html this patient is a 46-year-old female presents for postoperative care. Her incisions are clean dry and intact. She has some appropriate postoperative pain/ discomfort. No bleeding, no foul-smelling vaginal discharge. No nausea, vomiting, fever, chills. To follow up for routine gynecologic care. Joni Walker MD [address], [place], [address], [facility] 07/06/2022 15:40:48 08/12/2023 text/html This patient [...] rheumatoid arthritis. We spent over 20 minutes [id number]. More than 50% was counseling. Joni Walker MD [address], [place], [address], [facility] 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
[2024-08-26] MEDS: LACTATED RINGERS 1,000 ML 30 ML IV CONT ×2 (12:00→14:44)
[2024-08-26] MEDS: ACETAMINOPHEN 500 MG TABLET 1000 MG PO (12:07)
[2024-08-26] MEDS: INDOCYANINE GREEN 25 MG VIAL WITH DILUENT 3.75 MG IV PUSH (12:07)
[2024-08-26] MEDS: KETOROLAC 15 MG/ML VIAL (*BKC) IV PUSH (12:07)
--- NOTE | 2024-08-26 12:22 | WPDHPUPDATE1 ---
History and Physical Update Update Date/Time: 08/26/24 12:22 History and Physical has been reviewed, including an updated exam of the patient. There are NO changes in the patient's condition. Risks, benefits, and alternatives have been discussed and questions answered. Patient agrees to proceed with procedure.
--- NOTE | 2024-08-26 13:00 | P.PNAN_ITS ---
Anes - Initial Pre Proc Eval Procedure: Operation Date: 08/26/24 13:30 Proposed Procedures p Robotic Cholecystectomy - Judy Mcnamara MD Date/Time: 08/26/24 13:00 Surgeon: Judy Mcnamara MD Pre Op Diagnosis: Chronic Calculous CHolecystitis Patient Data Age: 48 Gender: F Height: 1.8 m Weight: 136.6 kg Last Vital Signs Temp 97 F L 08/26/24 12:00 Pulse 56 L 08/26/24 12:00 Resp 16 08/26/24 12:00 BP 139/82 08/26/24 12:00 Pulse Ox 97 08/26/24 12:00 Allergies Allergy/AdvReac Type Severity Reaction Status Date / Time No Known Allergies Allergy Verified 08/26/24 12:25 Home Medications ?Medication ?Instructions ?Recorded ?Confirmed ?Type cetirizine 10 mg tablet (Zyrtec) 10 mg PO DAILY 07/11/19 08/19/24 History quetiapine 300 mg tablet,extended 300 mg PO HS 07/11/19 08/19/24 History release 24 hr ascorbic acid (vitamin C) 1,000 mg 1 g PO DAILY 03/16/22 08/19/24 History capsule bupropion HCl 150 mg 24 hr tablet, 150 mg PO QAM 03/16/22 08/26/24 History extended release cholecalciferol (vitamin D3) 125 125 mcg PO DAILY 03/16/22 08/26/24 History mcg (5,000 unit) capsule clonazepam 0.5 mg tablet 0.5 mg PO DAILY PRN Anxiety 03/16/22 08/19/24 History ferrous sulfate 325 mg (65 mg 325 mg PO DAILY 03/16/22 08/26/24 History iron) tablet (Iron (ferrous sulfate)) autopap #1 ea 08/17/22 08/19/24 Rx lancets 33 gauge (BD Ultra Fine #100 ea 11/02/22 08/19/24 Rx Lancets) blood-glucose meter (Contour Next #1 ea 11/24/22 08/19/24 Rx One Meter) estradiol 2 mg tablet 2 mg PO DAILY 04/18/23 08/19/24 History insulin syringe-needle U-100 1 mL #500 ea 07/18/23 08/19/24 Rx 27 gauge x 1/2 (BD Insulin Syringe) blood sugar diagnostic #100 ea 12/14/23 08/19/24 Rx cyanocobalamin (vitamin B-12) 1,000 mcg subcut WEEKLY 90 days 03/18/24 08/19/24 Rx 1,000 mcg/mL injection solution #13 mL lansoprazole 30 mg capsule,delayed See Rx Instructions .Route 05/14/24 08/19/24 Rx release .COMPLEX #90 caps sumatriptan succinate 100 mg tablet See Rx Instructions PO .COMPLEX 05/20/24 08/19/24 Rx #10 tabs metoprolol succinate 25 mg See Rx Instructions .Route 05/28/24 08/26/24 Rx tablet,extended release 24 hr .COMPLEX #45 tabs cyclobenzaprine 10 mg tablet See Rx Instructions .Route 07/29/24 08/19/24 Rx .COMPLEX #30 tabs ibuprofen 600 mg tablet See Rx Instructions .Route 07/29/24 08/19/24 Rx .COMPLEX #30 tabs nicotine 14 mg/24 hr daily See Rx Instructions .Route 07/29/24 08/19/24 Rx transdermal patch .COMPLEX #14 patches tirzepatide (weight loss) 7.5 7.5 mg (0.5 mL) subcut WEEKLY #2 mL 07/29/24 08/26/24 Rx mg/0.5 mL subcutaneous pen injector (Zepbound) hyoscyamine sulfate 0.375 mg See Rx Instructions .Route 08/26/24 Rx tablet,extended release,12 hr .COMPLEX #180 tabs Patient hx anesthesia problems: none Family hx anesthesia problems: none Results Review: All pre-operative results and documents have been reviewed as part of the pre- operative evaluation. [facility] Past Medical History Medical History Irritable bowel syndrome Anemia Sore throat Acute bacterial sinusitis Post-op pain Postsurgical dumping syndrome Fatty liver Colon cancer screening Nonerosive esophageal reflux disease Chronic diarrhea Vomiting Left upper quadrant abdominal pain Abnormal CT scan, gallbladder Family history of diabetes mellitus (DM) Headache migraine Depression Arthritis Anxiety Allergies Surgical History Surgical History H/O: hysterectomy 2022 H/O gastric bypass 2009 Family History Family History Mother Heart disease Depression Anxiety Alcohol abuse Hypertension Grandparent Cerebrovascular accident Grandparent Diabetes mellitus Heart disease Anxiety Depression Hypertension Alcohol abuse Father Diabetes mellitus Hypertension Sibling Asthma Anxiety Depression Hypertension Social History Social History Smoking packs per day: 1 Smoking cigarettes per day: 20.0 Years smoked: 32 Smoking pack-years: 32.00 Smoking status: Current every day smoker Tobacco type: cigars Additional smoking assessment comments: 2-3 cigars a day if wearing nicotine patch,if not wearing patch can be more Alcohol intake: current Substance use: former Substance use type: marijuana Other substance usage details: marijuana use over 10 years ago Do You Feel Safe in your Home?: Yes Lack of Transportation: No Lack of Food: Never True Current Housing: I Have Housing Concerned About Future Housing: No Difficulty Paying Gas/Electric Bills: No Difficulty Paying for Meds: No Currently Unemployed: No Education: Associate Degree Difficulty w/ Childcare or Family Care: No Living arrangements: with family Spiritual care concerns: No Anes - Eval Final PreProcedure Day of Procedure 08/26/24 13:00 Patient weight: morbidly obese Lungs: normal air movement Airway: Mallampati scale class II Neurological: alert and oriented Last oral intake: >/= 8 hours ASA classification: IV Emergent: no Anesthetic plan: proceed Anesthesia type and monitoring: general ETT and standard monitoring Results Review: All pre-operative results and documents have been reviewed as part of the pre- operative evaluation. SHELBY on BiPap (not usu compliant), smoker of cigars 1 ppd, PSVT on b fernando (taken this am). Informed Consent: The patient's anesthetic plan and its attendant risks and benefits were discussed with the patient/family/POA. Questions were solicited and answers provided to the satisfaction of the patient/family/POA.
[2024-08-26] MEDS: ceFAZolin 3 GM/D5W 100 ML 100 ML IVPB (13:22)
[2024-08-26] MEDS: BUPIVACAINE/EPINEPHRINE 0.5% 50 ML VIAL 30 ML INFILTRATE (14:06)
--- NOTE | 2024-08-26 14:41 | W.PM.PROC2 ---
Procedure Note - Detailed Date of Procedure 08/26/24 Pre-op Diagnosis Chronic cholecystitis, cholelithiasis Post-op Diagnosis Same Procedure Performed Robotic assisted cholecystectomy Surgeon Judy Mcnamara MD Anesthesia General and Local Indications 48-year-old female presenting to the office with postprandial right upper quadrant abdominal pain, nausea, bloating. Workup, including imaging, significant for chronic cholecystitis, cholelithiasis. Findings Moderate cholecystitis, cholelithiasis, intrahepatic gallbladder Description of Procedure The patient was taken to the operating room and placed in the supine position. After adequate induction of general anesthesia, the patient was prepped and draped in the normal sterile fashion. A time-out was then done to verify the patient's identity, as well as the procedure being performed. I began by making a 8 mm incision in the periumbilical region. A Veress needle was then placed in the peritoneal cavity and CO2 gas was insufflated. After adequate pneumoperitoneum was achieved, the Veress needle was removed and a 8 mm Optiview trocar was placed under direct visualization. Once into the abdominal cavity, the introducer was removed and the laparoscope was placed through this trocar site. Under direct visualization, I placed a further 8 mm port in the left mid abdomen and 2 additional 8 mm ports in the right mid abdomen. The robot was then docked to these ports sites. I then went to the console. The gallbladder was then identified and noted to be moderately inflamed. I was able to place a grasper at the dome of the gallbladder and this was retracted up and over the liver. A 2nd retractor was used to grasp the infundibulum and retracted laterally. Of note, the gallbladder was noted to be very intrahepatic making visualization somewhat difficult. This allowed visualization and dissection of the triangle of Calot. There were some omental and fat adhesions to the gallbladder and these were taken down with the cautery. I then began dissection around the triangle Calot. I first identified the cystic duct, I was able to visualize the entirety of the duct from its proximal insertion into the gallbladder to its distal junction with the common hepatic/common bile duct junction. I then used the firefly visualization at this point to confirm the anatomy. The proximal cystic duct was then further skeletonized, clipped, and transected. Next I visualized the cystic artery. Again the structure was skeletonized, clipped, and transected. I then again used firefly to confirm anatomy and no aberrant anatomy was noted. I then used the Bovie cautery to take down the peritoneal attachments of the gallbladder off the liver bed. Again this was difficult given the intrahepatic nature of the gallbladder. Once the gallbladder specimen was completely detached, an Endo pouch was placed through the left 8 mm port site and the gallbladder specimen was placed in the endo-pouch and subsequently removed. Of note, I made a cholecystostomy and decompressed the gallbladder to facilitate removal. I then re-examined the right upper quadrant. The right upper quadrant was copiously irrigated and suction and no other pathology was noted. Hemostasis was noted in the liver bed and the clips were noted to be in good position on both the duct and the artery. All instruments were then removed and the robot was undocked. The abdomen was then desufflated and all ports were removed. All port sites were then closed with 4-0 Monocryl subcuticular suture. Dermabond was placed on each was wound. The patient tolerated the procedure well and was extubated in the operating room postop. The patient will now be transferred to the recovery room in stable condition. Estimated Blood Loss 10 Drains No Packing No Pathology Yes Complications No immediate complications Condition Stable Disposition PACU [facility] Billing Surgery - Charge Forward: Surgery Billing
[2024-08-26] MEDS: fentaNYL CITRATE INJ (*CRX) 100 MCG/2 ML VIAL 25 MCG IV PUSH ×4 (14:55→15:28)
[2024-08-26] MEDS: oxyCODONE HCL (*CRX) 5 MG TAB IR PO (15:52)
== END 2024-08-26 16:55 | disposition home or self-care (01) ==
PROVIDERS: PCP Emergency Medicine; Visit Provider Surgery
PROC: 0FT44ZZ Resection of Gallbladder, Percutaneous Endoscopic Approach (ICD-10-PCS; CPT 47562; principal; 2024-08-26 13:30)
DX: K80.10 Calculus of gallbladder with chronic cholecystitis without obstruction (principal); K66.0 Peritoneal adhesions (postprocedural) (postinfection); K58.9 Irritable bowel syndrome, unspecified; D64.9 Anemia, unspecified; K21.9 Gastro-esophageal reflux disease without esophagitis; F32.A Depression, unspecified; F41.9 Anxiety disorder, unspecified; M19.90 Unspecified osteoarthritis, unspecified site; G47.33 Obstructive sleep apnea (adult) (pediatric); F17.290 Nicotine dependence, other tobacco product, uncomplicated; I47.10 Supraventricular tachycardia, unspecified; F12.90 Cannabis use, unspecified, uncomplicated; E66.01 Morbid (severe) obesity due to excess calories; Z68.41 Body mass index [BMI] 40.0-44.9, adult; Z79.4 Long term (current) use of insulin; Z79.85 Long-term (current) use of injectable non-insulin antidiabetic drugs; Z79.1 Long term (current) use of non-steroidal anti-inflammatories (NSAID); Z98.890 Other specified postprocedural states; Z98.84 Bariatric surgery status; Z82.49 Family history of ischemic heart disease and other diseases of the circulatory system
CPT/HCPCS: 47562; S2900; 88304; A9270; J0690; J1100; J1885; J2250; J2405; J2704; J3010; J7030; J7120

== ENCOUNTER 2024-11-15 13:56 | Outpatient (CLI) | payer OTHER, SELFPAY ==
--- NOTE | ~2024-11-15 | DEXA_ITS ---
Bone Density Report Name: NANCY PIERRE Age: 48 Sex: Female Ethnicity: White Date of : 1975 Indication: postmenopausal; Referring Provider: UNKNOWN, UNKNOWN Study: Bone densitometry was performed. Exam Date: November 15, 2024 Accession number: [id number] Bone Density: Region BMD T-score Z-score Classification AP Spine(L1-L4) 1.138 0.8 1.5 Normal Femoral Neck (Left) 0.882 0.3 1.0 Normal Total Hip (Left) 1.087 1.2 1.6 Normal Femoral Neck (Right) 0.813 -0.3 0.3 Normal Total Hip (Right) 1.019 0.6 1.0 Normal Femoral Neck Mean 0.848 0.0 0.7 Normal Total Hip Mean 1.053 0.9 1.3 Normal World Health Organization criteria for BMD impression classify patients as: Normal (T-score at or above -1.0), Osteopenia (T-score between -1.0 and -2.5), or Osteoporosis (T-score at or below -2.5). Clinical Information Provided by Patient: Impression: The patient has normal bone mass. Discussion: BONE DENSITY IS ABOVE THE MINIMUM DESIRABLE LEVEL AT ALL SKELETAL SITES TESTED. This patient?s bone mineral density is above the minimum desirable level (T-score -1.0 or better) at all sites measured. The patient should follow a healthful lifestyle (good nutrition with adequate calcium and vitamin D, and appropriate weight-bearing exercise). Follow-Up: Consider repeating this study in 5 years or sooner if there is some new clinical indication. Reported by: DORCAS on 11/15/2024 2:35:00 PM. Reviewed, dictated and finalized at location A.
--- NOTE | ~2024-11-15 | MM_ITS ---
EXAMINATION: MM screening lloyd BI w pato HISTORY: Screening TECHNIQUE: Craniocaudal and mediolateral oblique 3-D tomosynthesis images were obtained and synthetic 2-D images were generated. CAD analysis was submitted and interpreted. COMPARISON: 12/21/2018 BREAST PARENCHYMAL COMPOSITION: Not Dense: The breasts are almost entirely fatty. FINDINGS: There is no evidence of suspicious mass, calcification, or architectural distortion to sugg est malignancy in either breast. There has been no suspicious interval change. IMPRESSION: 1. No mammographic evidence of malignancy. 2. Recommend routine screening mammography in one year. BI-RADS Category 1: Negative Reviewed, dictated and finalized at location B.
--- OUTSIDE RECORDS SUMMARY | 2024-11-15 13:59 | XMS_ITS ---
Author Organization [facility] Address [facility] [address] [facility] [address] [place] [address] Care Team Providers Care Inside Sales Assistant Name Role Phone Rajan Rogers MD Primary Care Provider Josue Roth Unavailable [phone] Social History Sex Assigned At : Social History Observation Description Sex Assigned At Female Encounters Encounter Location Date Provider Diagnosis [facility] [id number] [facility] [address] [facility] [address] [place] [address] 05/08/2024 Josue Ward Plan Of Treatment Next Appt Details Provider Name:Josue lamb, 11/29/2024 09:15:00 AM, [address], [facility] [address], [place], [address], Progress Notes * NANCY PIERRE MDOB:1975 (48 yo F)Acc No.[id number]:05/08/2024 Patient: NANCY GUTHRIE Provider: MINNA MULLEN :1975 A ge:48 Y S ex:Female Date:05/08/2024 Address:[address] [facility] Pcp:Rajan Rogers MD Subjective: * Chief Complaints: * * Medical History: Objective: * Vitals: Assessment: Plan: * Treatment: * Billing Information: * Visit Code: * Procedure Codes: * Electronic signature of MINNA Montejo on 11/15/2024 at 01:59 PM CDT Sign off status: Pending * Provider: MINNA MULLEN Date: 0 05/08/2024 Generated for Fran Hawkins/[employer] on: 0 11/15/2024 01:59 PM CDT
--- OUTSIDE RECORDS SUMMARY | 2024-11-15 13:59 | XMS_ITS | Patient Health Record ---
Author Organization [facility] [employer] [facility] Address [address] [place] [address] Care Team Providers Care Medical Coder Name Role Phone Rajan Rogers MD Primary Care Provider Unavail able Josue Ward Unavailable [phone] Allergies No Known Allergies Results Component Value Reference Range Notes UDT Reviewed date:05/24/2024 06:06:48 PM Interpretation: Performing Lab: Notes/Report: THC N 0 - 50 ng/ml Cocaine N 0 - 300 ng/ml Amphetamine N 0 - 1000 ng/ml Buprenorphine (BUP) N 0 - 10 ng/ml Secobarbital (Bar) N 0 - 300 ng/ml Oxazepam (BZO) N 0 - 300 ng/ml 6-omyjiexnjn-9,8-preqexzz-6,3-diphenylpyrrolidine (RADHA P) N 0 - 300 ng/ml Methamphetamine (MET) N 0 - 1000 ng/ml Methylenedioxymethamphetamine (MDMA) N 0 - 500 ng/ml Morphine (MOP 300/MDN8408) N 0 - 300 ng/ml Methadone (MTD) [...] 300 MG TAKE 1 TABLET BY MOUTH DAILY; Duration: 90 Active clonazePAM 0.5 MG 1 tablet Oral Once a day; Duration: 30 days As needed 08/29/2024 Active Contour Blood Glucose System w/Device In Vitro 08/18/2023 Active buPROPion HCl ER (XL) 300 MG 1 tablet every morning Oral Once a day; Duration: 90 days Active traZODone HCl 50 MG 0.5 to 1 tablet at bedtime Oral Once a day; Duration: 90 days Active MICROLET MISCELLANEOUS *Reorder from [facility] for eRx and Interaction Alerts* 08/18/2023 Active SEROquel XR 300 MG 1 tablet in the evening Oral Once a day; Duration: 90 days Active SUMAtriptan Succinate 100 MG Oral 08/18/2023 Active buPROPion HCl ER (XL) 300 MG 1 tablet every morning Oral Once a day; Duration: 90 days Active Metoprolol Succinate ER 25 MG Oral 08/18/2023 Active Hyoscyamine Sulfate 0.125 MG Oral 08/18/2023 Active ZyrTEC Allergy 10 MG Oral 08/18/2023 Active Estradiol 2 MG Oral 08/18/2023 Acti ve Contour Next One MISCELLANEOUS 08/18/2023 Active Vitamin D3 Adult Gummies 25 MCG (1000 UT) Oral 08/18/2023 Active Lansoprazole 30 MG Oral 08/18/2023 Active Cyanocobalamin 1000 MCG/ML Injection 08/18/2023 Active Dicyclomine HCl 20 MG Oral 08/18/2023 Not-Taking Colestipol HCl 1 GM Oral 08/18/2023 Not-Taking Immunizations Vaccine Route Administration Date Status Comme nts Influenza virus vaccine, quadrivalent (IIV4), split virus, 0.25 mL dosage Unknown 02/16/2018 Administered Influenza virus vaccine, quadrivalent (IIV4), split virus, 0.25 mL dosage Unknown 02/09/2019 Administered Influenza virus vaccine, quadrivalent (IIV4), split virus, 0.25 mL dosage Unknown 12/31/2019 Administered Influenza, injectable, MDCK, preservative free Unknown 02/22/2017 Administered Novel [id number], preservative free Unknown 02/08/2018 Administered Pfizer BiontProfStream Covid-19 Vac cine 2nd dose Unknown 06/30/2020 Administered Pfizer Biontech Covid-19 Vac cine 2nd dose Unknown 07/21/2020 Administered Pfizer Biontech Covid-19 Vac cine 2nd dose Unknown 01/24/2021 Administered Pfizer Biontech Covid-19 Vac cine 2nd dose Unknown 10/01/2021 Administered Pfizer Biontech Covid-19 Vac cine 2nd dose Unknown 01/09/2022 Administered Social History Tobacco Use: Social History Observation Description Date Details (start date - stop date) Current Smoker NA - NA Sex Assigned At : Social History Observation Description Sex Assigned At Female Tobacco Control (Standard) Question Answer Notes Tobacco use: Current smoker Problems Problem Type SNOMED Code ICD Code Onset Dates Problem Status W/U Status Risk Notes Problem Bipolar I disorder, most recent episode mixed, in remission (23080702) Bipolar disorder, currently in remission, most recent episode unspecified (F31.70) Active confirmed Problem Generalized anxiety disorder (83025829) Generalized anxiety disorder (F41.1) Active confirmed Problem Insomnia 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 (31481287) Insomnia due to other mental disorder (F51.05) Active confirmed Vital Signs Heart Rate 80 /min 08/29/2024 Height-cm 180.34 cm 08/29/2024 Blood pressure diastolic 91 mm Hg 08/29/2024 Weight-kg 138.8 kg 08/29/2024 Height 71.00 in 08/29/2024 Blood pressure systolic 125 mm Hg 08/29/2024 Weight 306 lbs 08/29/2024 BMI 42.67 kg/m2 08/29/2024 Encounters Encounter Location Date Provider Diagnosis [facility] [facility] [address] [place] [address] 12/18/2023 Josue Ward Generalized anxiety disorder F41.1 ; Insomnia due to other mental disorder F51.05 ; 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 and Bipolar disorder, currently in remission, most recent episode unspecified F31.70 [email or web address] [address] [place] [address] 04/04/2024 Josue Ward Generalized anxiety disorder F41.1 ; Insomnia due to other mental disorder F51.05 ; Other jail (current) drug therapy Z79.899 and Bipolar disorder, currently in remission, most recent episode unspecified F31.70 [email or web address] [address] [place] [address] 05/24/2024 Josue Ward Generalized anxiety disorder F41.1 ; Insomnia due to other mental disorder F51.05 ; Other jail (current) drug therapy Z79.899 and Bipolar disorder, currently in remission, most recent episode unspecified F31.70 [facility] [employer] [facility] [address] [facility] [address] [address] 08/29/2024 Josue Ward Negative depression screening Z13.31 ; Encounter for screening for cardiovascular disorders Z13.6 ; Dietary counseling and surveillance Z71.3 ; Generalized anxiety disorder F41.1 ; Insomnia due to other mental disorder F51.05 ; 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 and Bipolar disorder, currently in remission, most recent episode unspecified F31.70 [facility] [employer] [facility] [address] [address] 12/28/2023 Josuepeter Coffmanoza [facility] [employer] [address] [address] 12/29/2023 Josue Ward [facility] [employer] [facility] [address] [facility] [address] [address] 08/10/2024 Josuepeter Coffmanoza [facility] [employer] [address] [address] 08/10/2024 Josue Ward Assessments Encounter Date Diagnosis (ICD Code) Assessment Notes Treatment Notes Treatment Clinical Notes Section Notes 12/18/2023 Generalized anxiety disorder (ICD-10 - F41.1) [...] 5. Pharmacy: - Patient prefers to use [facility] pharmacy for medications. Plan: - Send all medication refills to [facility] pharmacy as requested by the [...] 5. Pharmacy: - Patient prefers to use [facility] pharmacy for medications. Plan: - Send all medication refills to [facility] pharmacy as requested by the [...] (ICD-10 - F41.1) Clonazepam 0.5mg od prn 08/29/2024 Negative depression screening (ICD-10 - Z13.31) 05/24/2024 Insomnia due to other mental disorder (ICD-10 - F51.05) Trazodone 0.5 to 1 tablet hs prn 08/29/2024 Encounter for screening for cardiovascular disorders (ICD-10 - Z13.6) 04/04/2024 Insomnia due to other mental disorder [...] and discuss any ongoing concerns. 12/18/2023 Other jail (current) drug therapy (ICD-10 - Z79.899) 1. [...] 5. Pharmacy: - Patient prefers to use [facility] pharmacy for medications. Plan: - Send all medication refills to [facility] pharmacy as requested by the patient. Follow-up: - Schedule a follow-up appointment in three months. - Encourage the patient to call if they have any concerns or worsening symptoms before the next appointment. 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 [...] sertraline dosage and discuss any ongoing concerns. 08/29/2024 Dietary counseling and surveillance (ICD-10 - Z71.3) 05/24/2024 Other jail (current) drug therapy (ICD-10 - Z79.899) 12/18/2023 [...] 5. Pharmacy: - Patient prefers to use [facility] pharmacy for medications. Plan: - Send all medication refills to [facility] pharmacy as requested by the patient. Follow-up: - Schedule a follow-up appointment in three months. - Encourage the patient to call if they have any concerns or worsening symptoms before the next appointment. 08/29/2024 Generalized anxiety disorder (ICD-10 - F41.1) Clonazepam 0.5mg od prn 05/24/2024 Bipolar disorder, currently in remission, most [...] sertraline dosage and discuss any ongoing concerns. 08/29/2024 Insomnia due to other mental disorder (ICD-10 - F51.05) Trazodone 0.5 to 1 tablet hs prn 08/29/2024 Other jail (current) drug therapy (ICD-10 - Z79.899) 08/29/2024 Bipolar disorder, currently in remission, most recent [...] medication adjustments and overall mental health status. 08/29/2024 Mary Little is a female patient with a history of bipolar disorder, presenting for follow-up after recent gallbladder removal surgery. She reports mild irritability and short-temperedne ss, which she attributes to menopause. Bipolar Disorder Assessment: Patient reports overall stable mood with no significant manic symptoms. She mentions mild irritability and short-temperedne ss, which she attributes to menopause rather than her bipolar disorder. No evidence of elevated mood or significant spending behavior. Current medication regimen includes Seroquel XR (quetiapine) 300 mg every evening and bupropion XL 300 mg daily, which appears to be effectively managing her bipolar symptoms. Plan: - Continue Seroquel XR (quetiapine) 300 mg PO every evening - Continue bupropion XL 300 mg PO daily - Monitor for any changes in mood or emergence of manic symptoms Anxiety Assessment: Patient reports doing pretty good in terms of anxiety symptoms. She is currently prescribed clonazepam 0.5 mg daily as needed for anxiety. Plan: - Continue clonazepam 0.5 mg PO daily as needed for anxiety Insomnia Assessment: Patient is currently prescribed trazodone 50 mg, 0.5 to 1 tablet at bedtime as needed for insomnia. No specific complaints or concerns about sleep were mentioned during this visit. Plan: - Continue trazodone 50 mg PO, 0.5 to 1 tablet at bedtime as needed for insomnia Recent Gallbladder Removal Assessment: Patient recently underwent laparoscopic gallbladder removal surgery. She reports a history of stomach pain, which she believes was related to hormonal issues rather than her gallbladder. The surgery was performed on Monday, and she is currently recovering. Plan: - Monitor post-operative recovery - Follow up with surgical team as needed Menopausal Symptoms Assessment: Patient attributes her recent irritability and short-temperedne ss to menopause-relate d hormonal changes. She reports taking daily estrogen, which is monitored by her [employer]NAGER. Plan: - Continue current hormone replacement therapy as prescribed by B[employer]NAGER - Monitor for changes in mood or behavior related to hormonal fluctuations the note is transcribed using speech recognition software. It is a reflection of a visit with the patient. It might have some inaccuracy, including medication names and transcribing errors, though efforts have been made to correct them. Plan Of Treatment Next Appt Details Provider Name:Josue lamb, 11/29/2024 09:15:00 AM, [address], [address], [place], [address], Insurance Providers Payer Name Payer Address Payer Phone Subscriber Number Group Number Insured Name Patient Relationship to Insured Coverage Start Date Coverage End Date [employer] Pos [address] [place] [address] [id number] [address] [place] [address] Self - patient is the insured Medical (General) History Medical History History ICD Code Problems: Bipolar disorder in remission Body mass index 30+ - obesity Generalized anxiety disorder Insomnia disorder related to another men bhaskar disorder Long-term current use of drug therapy , Surgical History Surgery Date(Month/Year) Oophorectomy (71705) 06/29/2022 gallbladder 08/26/2024 Hysterectomy (75120) 06/29/2022 Other 08/31/2009
--- OUTSIDE RECORDS SUMMARY | 2024-11-15 14:00 | XMS_ITS | Data Portability ---
Author Organization [facility] in Office Address [address] [place] [address] Assessment Encounter Date Assessment Date Assessment LastModified by Organization Details LastModified Time 09/19/2024 09/19/2024 I spent 35 minutes of strd-st-czij counselling and care coordination time with the patient. This includes reviewing medical records (medical, surgical, family and social history); updating medication and allergy information in the electronic health record; and ordering labs, medications, and education materials to continue patient care. [email or web address] Not available 09/19/2024 10:08:37 10/31/2024 10/31/2024 I spent 23 minutes of gqbq-af-jlgv counselling and care coordination time with the patient. This includes reviewing medical records (medical, surgical, family and social history); updating medication and allergy information in the electronic health record; and ordering labs, medications, and education materials to continue patient care. [email or web address] Not available 10/31/2024 10:06:32 Plan of Treatment Reminders Order Date Submit Date Provider Last Modified By Organization Details Last Modified Time Details Appointments [id number] 2024 05:45A M ROSELINE GONZALEZ NP Not available Not available Not available Lab shbg (sex hormone-b inding globulin) , serum 2024 [id number] [facility], [address], [address], 10/31/2024 10:08:34 testoster one, free, serum 2024 025 [facility], [address] [facility], [facility], [place], [address], 10/31/2024 10:08:34 testoster one, total, serum [id number] [facility], [address] [place] [address], [place], [address], 10/31/2024 10:08:35 shbg (sex hormone-b inding globulin) , serum [address] [facility], [address] [place] [address], [place], [address], 10/17/2024 04:09:17 testoster one, free, serum [address] [facility], [address] [place] [address], [place], [address], 10/17/2024 04:09:17 testoster one, total, serum [address] [facility], [address] [place] [address], [place], [address], 10/17/2024 04:09:18 Referral None recorded. Procedures None recorded. Surgeries None recorded. Imaging DEXA 2024 [facility], [address], [place], [address], 10/31/2024 10:10:26 MAMMO, screening , digital, bilateral - If additiona l screening /views are needed, order is approved by ordering provider. 2024 [facility], [address], [place], [address], 10/31/2024 10:10:26 Medication Orders estradiol 0.075 mg/24 hr semiweekl y transderm al patch 2024 [id number], [address], [place], [address], 10/31/2024 10:08:26 progester one micronize d 200 mg capsule 2024 025 [id number], [address], [place], [address], 09/19/2024 10:12:56 Patient TargetsNo targets recorded. Patient Instructions Encounter Date Encounter Id Patient Instructions Last Modified By Organization Details Last Modified Time 09/19/2024 [id number] Any requested follow-up visits are listed below in the Plan of Care section. Go directly to the [employer] efficiency miner blasting at [email or web address] to book a time. [email or web address] Not available 09/19/2024 07:48:00 Today we reviewe d options for treating common symptoms of menopause. These options include hormonal medications, non hormonal medications, integrative therapies and lifestyle modifications. Menopause symptoms vary from woman to woman. Some women get no symptoms, but others have many. Intensity and duration also vary and can last on average 5-10 years. HRT may help with many menopausal symptoms. It is FDA approved for the treatment of hot flashes, vaginal symptoms, osteoporosis, and for those in early or premature menopause. HRT is associated with relief of symptoms and improvement in bone health. When started close to the age of menopause, HRT reduces cardiovascular risk and has potential benefits for cognitive health. Here are the latest recommendations from the Menopause Society: https://menopause.org /patient-education/me nopause-topics/hormon e-therapy Hormone therapy most often involves the combination of estrogen and progestogen. As with any drug there are some potential risks associated with hormone therapy. There are concerns of associated health risks with HRT including risks related to breast cancer, uterine cancer, gallbladder disease, and dementia. Many of these concerns are related to older types of hormones that are no longer recommended today and some of these concerns differ depending on the component of hormones (i.e., estrogen vs progestogen) and the mode of delivery Some studies have suggested that some types of HRT may increase the risk of heart attack, stroke, and blood clots. If you develop chest pain, difficulty breathing, or symptoms suggestive of a stroke please seek care immediately. Today we reviewed your personal history including specific risks and benefits of hormone therapy for you. Based on this shared decision making, we recommend HRT to you as a reasonable and helpful therapy. If you have additional questions related to health risks associated with HRT, please discuss with your clinician. Please know that HRT requires fine-tuning and an individualized approach. We ll plan to adjust your therapy if needed to address your symptoms. We will meet in 4-6 weeks to check in about your new regimen. Please reach out if you need to meet sooner. It was a pleasure to meet with you today! We discussed your health concerns related to post-hysterectomy symptoms, including joint pain, anxiety, and sleep difficulties. Your Care Plan Together, we decided that you would: - Start taking progesterone to help with sleep and anxiety. The prescription will be sent to your preferred pharmacy. - Undergo a liver scan on October 04 to check your liver function. - Get your testosterone levels checked. An order for this lab test will be sent to your preferred lab. - Follow up with me on October 24 at 7:30 AM to discuss the results of your liver scan and testosterone levels, and to evaluate the effectiveness of the progesterone. During this visit, we may also discuss the possibility of switching your estrogen to a transdermal gel. - Work on smoking cessation. Continue using the nicotine patches and try to reduce and eventually stop smoking. Smoking while on oral estrogen increases your risk for blood clots and stroke. Please carefully review the care plan we have agreed upon above, which includes specific information about your new medication, upcoming tests, and other important details about your overall care. Thank you for trusting us with your care! Oral micronized progesterone (Prometrium) Continuous: -We prescribe progesterone to protect your uterus while you are taking estrogen. -Take pill orally daily. -Remember to take this medication before bed, because it may make you drowsy. That is normal and common, and could bring the added benefit of better sleep. -Get it from your pharmacy. Contraindications to this formulation: Peanut allergies as in peanut oil. Concerning symptoms that would require immediate visit with PCP or urgent care: Severe mood changes. Non-concerning side effects that are likely to resolve: cramping, bloating and mild moodiness. These are likely to ease within three months. [email or web address] Not available 09/19/2024 10:11:34 10/31/2024 [id number] mammogram: about this test [email or web address] Not available 10/31/2024 10:08:23 Any requested follow-up visits are listed below in the Plan of Care section. Go directly to the [employer] efficiency miner blasting at [email or web address] to book a time. yun Not available 10/31/2024 07:42:52 It was a pleasur e to meet with you today! We discussed your health concerns related to hormone replacement therapy, recent lab work, and follow-up appointments. Your Care Plan Together, we decided that you would: - Discontinue oral estradiol 2 mg and start using the estradiol patch 0.075 mg. Apply the patch to your abdomen or arm, avoiding the breast areas, and rotate it every 3 to 4 days. - Try discontinuing micronized progesterone 200 mg for a few nights to see if it alleviates the sensation of skin crawling and difficulty falling asleep. You can resume trazodone as needed for sleep if you find it helpful. - Continue using Zepbound 12.5 mg for weight management. - Follow up with your primary care physician every 4 months for ongoing management of Zepbound and other health concerns. - Schedule and complete a mammogram and DEXA scan. Orders for these tests have been sent. - Follow up with your mixer operator in a year for a repeat liver scan. - Make an appointment with your bar back for routine care. - Continue using nicotine patches and work towards smoking cessation. You are currently smoking half a pack per day. - Maintain a regular diet and incorporate more regular exercise into your routine. - Monitor for any return of hot flashes or other symptoms. If you experience any issues with the estradiol patch or have any other concerns, please send a message through the patient portal. Please carefully review the care plan we have agreed upon above, which includes specific information about your hormone replacement therapy, follow-up appointments, and other important details about your overall care. Thank you for trusting us with your care! Estradiol transdermal patch (Vivelle Dot): -Helpful for hot flashes, night sweats, and symptoms of perimenopause/menopau se. -Twice weekly transdermal patch. -Get it from your pharmacy. Application notes: -Peel off the backing from the patch and apply to a clean, dry area of your body, usually lower abdomen or upper buttock. Press the patch firmly in place for 10 seconds. Do not apply the patch on your breast or on oily, broken, or irritated skin. Replace your patch twice a week, and be as consistent as possible with the days you choose to change it. If the patch is not sticking or it causes irritation, try dusting your skin with a small amount of cornstarch before applying. Side effects: -While the HRT is safe for most users, some may experience side effects, including: nausea, breast tenderness, bloating, spotting, and mild mood changes. Estrogen in some forms increases the risk of a blood clot in the leg (deep vein thrombosis) or lung (pulmonary embolism). While blood clots are rare, contact your health care provider or go to the emergency room if you develop shortness of breath, coughing or chest pain, leg or calf pain, or redness or swelling. [email or web address] Not available 10/31/2024 10:08:21 Reason for Referral None Reported. Problems Name Problem SNOMED Code Status Onset Date Resolution Date Notes Provider Name and Address Organization Details Recorded Time Postsurgica l menopause 375356074 Active 2024 [place] [address] [address] [facility], [facility]Lawyer [facility] 5 08:50:35 Pain of multiple joints 67038177 Active 2024 [place] [address] [facility] [facility] [facility] 5 08:50:53 Reduced libido 2160640 Active 2024 [place] [address] [address] [facility], [facility] [employer]yer [facility] 5 09:02:20 Steatotic liver disease 676386609 Active 2024 ROSELINE GONZ[place] [address] [facility], [facility] [employer]yer [facility] 5 10:10:23 Migraine without aura, not refractory 187670054 Active 2024 RO[place] [address] [facility], [facility] [employer]yer [facility] 5 10:10:23 Bipolar disorder 09489208 Active 2024 OR[place] [address] [place], 2, [facility] 5 10:10:23 Tobacco dependence caused by cigarettes [id number] 9107 Active 2024 GUANACO NI [place], 2, [facility] 5 10:10:23 Premature menopause 201922755 Active 2024 GUANACO NI [place], [place], [facility] 09:08:00 Problem Notes None recorded. Procedures Surgical History Date Name Laterality Status Provider Name and Address Organization Details Recorded Time 07/31/19 25 cholecystectomy completed GUANACO NI [place], , [facility] 09/19/2024 08:45:00 08/15/19 24 Date of Last Mammogram completed GUANACO NI [place], , [facility] 09/19/2024 07:48:44 06/26/19 24 Date of Last Colonoscopy completed GUANACO NI [place], , [facility] 09/19/2024 07:48:44 06/30/19 23 total hysterectomy completed GUANACO NI [place], , [facility] 09/19/2024 08:44:44 06/23/19 23 Date of Last Pap Smear completed GUANACO NI [place], , [facility] 09/19/2024 07:48:44 08/30/19 10 Gastric Bypass completed GUANACO NI [place], , [facility] 09/19/2024 08:43:56 Imaging Results None recorded. Procedure Notes None recorded. Medical Equipment None Reported. Allergies Allergen ID Allergen Name Allergen Category Reaction Reaction Severity Criticality Documentation Date Start Date Code Code System Note Provider Name and Address Organization Details Recorded Time 800900 POLLEN EXTRACTS environme nt,medica tion Not available Not available Not available 09/19/2024 48497 6 RxNorm ROSELINE GUANACO GONZALEZ [address] [address] [place], [place], [address], [facility] 5 07:48:44 924914 ragweed pollen environme nt Not available Not available Not available 09/19/2024 [id number] ZANE DUKES [facility]CO [facility]ALEZ [address] [facility] 5 07:48:44 136328 grass pollen environme nt,medica tion Not available Not available Not available 09/19/2024 [id number] [address] LISA , GUANACO [address] [place], [place], 2, [facility] 5 07:48:44 Medications Name Sig Start Date Stop Date Status Note LastModified by Organization Details LastModified Time cyclobenzap rine 10 mg tablet Take 1 tablet as needed by oral route. active Not Available Not Available No t Available nicotine 14 mg/24 hr daily transdermal patch Apply 1 patch every day by transderm al route. active Not Available Not Available No t Available estradiol 0.075 mg/24 hr semiweekly transdermal patch Apply 1 patch twice a week by transderm al route as directed for 30 days. 2024 active Not Available Not Available Not Avai lable Iron (ferrous sulfate) 325 mg (65 mg iron) tablet active Not Available Not Available Not Available sumatriptan 100 mg tablet Take as needed by oral route. active Not Available Not Available No t Available progesteron e micronized 200 mg capsule TAKE 1 CAPSULE BY MOUTH EVERY DAY AT BEDTIME FOR 30 DAYS 2024 active Not Available Not Available Not Avai lable estradiol 2 mg tablet Take 1 tablet every day by oral route. 10/31 completed Not Available Not Available Not Available clonazepam 0.5 mg [address] ing tablet Place 1 tablet as needed by transling ual route. active Not Available Not Available No t Available lansoprazol e 30 mg delayed release,dis integrating tablet Place 1 tablet every day by transling ual route. 10/31 completed Not Available Not Available Not Available ibuprofen 600mg po prn active Not Available Not Available No t Available trazodone 50mg po prn active Not Available Not Available No t Available metoprolol succinate 12.5mg po daily active Not Available Not Available No t Available Seroquel XR 150 mg tablet,exte nded release Take 2 tablets every day by oral route. active Not Available Not Available No t Available Zyrtec 10 mg capsule 10/31 completed Not Available Not Available Not Available bupropion HCl 150 mg tablet,12 hr sustained-r elease(smok ing deterrent) Take 1 tablet twice a day by oral route. active Not Available Not Available No t Available mecobalamin (vitamin B12) 10,000 mcg solution for injection active Not Available Not Available No t Available D3-5000 125 mcg (5,000 unit) capsule active Not Available Not Available Not Available Zepbound 10 mg/0.5 mL subcutaneou s pen injector Inject every week by subcutane ous route. 10/31 completed Not Available Not Available Not Available Zepbound 12.5 mg/0.5 mL subcutaneou s pen injector Inject by subcutane ous route. active Not Available Not Available No t Available Vitals Date Recorded Body height Body mass index (BMI) Body weight Provider Name and Address Organization Details Last Updated DateTime 09/19/2024 180.34 cm 41.3 kg/m2 498119.[place] [address] [place], [address], [facility] 09/19/2024 08:40:34 Date Recorded Body height Body mass index (BMI) Body weight Provider Name and Address Organization Details Last Updated DateTime 10/31/2024 180.34 cm 39.9 kg/m2 357658.[place] [address] [place], [address], [facility] 10/31/2024 09:07:23 Social History Question Answer Notes LastModified by [employer]. Details LastModified Time Tobacco Smoking Status Current Every Day Smoker ROSELINE GONZALEZ, [address] [address], [place], [place], , [facility] 09/19/2024 08:43:37 What Type Of Diet Are You Following? REGULAR Information not available 09/19/2024 What Is Your Current Pack Years? 10packyears Information not available 09/19/2024 How Much Tobacco Do You Smoke? 0.5 PPD Information not available 10/31/2024 Has Tobacco Cessation Counseling Been Provided? Yes Information not available 09/19/2024 Do You Have Any Dietary Restrictions? No Information not available 09/19/2024 Sex: Female Functional Status Question Answer Note LastModified by [employer]. Details LastModified Time How many times per week do you consume alcohol? Less than 1 time per week Information not available 09/19/2024 Do you use any illicit or recreational drugs? No Information not available 09/19/2024 What is your level of alcohol consumption? Occasional Information not available 09/19/2024 What is your exercise level? Occasional Information not available 10/31/2024 Mental Status None recorded. Family History Relationship Description Onset Age of this Age Resolved Age Notes LastModified by Organization Details LastModified Time Mother Heart disease [email or web address] Not available 09/19 07:48:44 Maternal Grandmother Osteoporosis [email or web address] Not availabl e 09/19/2024 07:48:44 Maternal Grandfather Heart disease [email or web address] Not available 09/19 07:48:44 Maternal Grandfather Diabetes mellitus [id number] Not available 2024 08:17:37 Paternal Grandfather Ischemic stroke [email or web address] Not available 09/19 07:48:44 Paternal Aunt Diabetes mellitus [id number] Not available 2024 08:17:37 Medical History Condition Response Pancreatitis N Allergies (Food, seasonal, environmental ) N Other N Colon Cancer N Blood Transfusion Y Breast Cancer N Drug/Latex Allergies/Reactions N Dermatologic Disorders N Lung Disease N Defects or Inherited Disease N Breast Problem N Gestational Diabetes N Uterine Cancer N Hematologic disorders N Anesthesia Complications N History of STI N Deep Vein Thrombosis N Polycystic ovary syndrome N Anxiety Disorder Y Autoimmune disease N Arthritis N Polyps N Infertility N Cervical Cancer N Acid Reflux (GERD) Y History of abnormal pap N Cancer N Varicosities N Stroke N Neurologic/Epilepsy N Endometriosis N Factor 5 Leiden Deficiency N High Cholesterol N Liver Disease N Fibromyalgia N Headaches N Kidney Disease N Heart Problems N Gallbladder Disease Y Migraines Y Thyroid Problems N Kidney or Bladder Problems N GI Problems Y Acne N Eating Disorder N Anemia Y Art (IVF or FET) N Psychiatric Illness Y Ovarian Cancer N Lymphoma Cancer N Diabetes N Pulmonary (TB, Asthma) N Hepatitis/Liver Disease N Eczema N Abuse/Domestic Violence N Heart Attack N Trauma/Violence N Seizures N Protein C and/or S Deficiency N Depression/ depression N Heart Disease N Pulmonary Embolism N Pre-Eclampsia N Hypertension N Osteoporosis N Thrombophilias N Gynecological History Statement/Question Response Abnormal Pap Y Date of Last Colonoscopy 06/26/2023 Date of Last Mammogram 08/15/2023 Most Recent Bone Density Date of LMP 06/23/2022 Menses Monthly N Date of Last Pap Smear 06/23/2022 Current Control Method None Approximate Hormone Replacement Therapy Yes Obstetrics History GPAL:G 1 P 0 0 1 0 Type Value Spontaneous 1 Total 1 Past Encounters Encounter ID Performer Location Encounter Start Date Encounter Closed Date Diagnosis/Indication Diagnosis SNOMED-CT Code Diagnosis ICD10 Code Diagnosis Note [id number] ROSELINE GONZALEZ NP Main Office [address] [place] [address] 09/19/2024 07:46:38 09/20/2024 04:49:47 Postsurgical menopause 137316822 E89.40 The patient is experienci ng significan t symptoms related to hormonal changes that impact their quality of life and ability to function profession ally and/or personally . We reviewed lifestyle modificati ons, integrativ e therapies, hormonal options as well as other medication s used to treat common menopausal symptoms. Pt was informed that, as with any drug, there are some potential risks associated with HRT. We discussed that some types of HRT may increase the risk of heart attack, stroke, and blood clots. Patient is counseled on concerning signs and symptoms and instructed to immediatel y seek care if these develop. We discussed potential health risks that may be associated with HRT including risks related to breast cancer, uterine cancer, gallbladde r disease, dementia and others. Many of these concerns are related to older types of hormones that are no longer recommende d today and some of these concerns differ depending on the component of hormones (estrogen vs progestero ne) and the mode of delivery. After review of the potential benefits of HRT, the alternativ es and the risks of therapy this patient prefers a trial of HRT. Based on this shared decision making HRT therapy will be offered. - On oral estradiol 2 mg daily; current dose maintained due to normal lab results reported by OB-MEASUREMENT OPERATOR.- Prescribed micronized progestero ne for improved sleep and anxiety control; advised to discontinu e if significan t GI upset occurs.- Ordered serum testostero ne level ([facility]) to evaluate eligibilit y for adjunct testostero ne therapy.- Recommende d continued monitoring of liver function; will review upcoming liver scan results on October 04 to assess for possible transition to transderma l estrogen if indicated. - Advised strict smoking cessation to reduce cardiovasc ular and thrombotic risk associated with oral estrogen use.- Scheduled follow-up on October 24 to reassess symptom control, review labs, and discuss potential modificati ons to hormone regimen. Pain of mu ltiple joints 55991423 M25.50 - RA panel and other assessment s reportedly negative; pain likely multifacto rial but may be exacerbate d by inflammato ry processes. - Monitoring response to newly added progestero ne; potential addition of testostero ne in the future to address inflammati on if lab results support therapy.- Will reevaluate pain control and treatment efficacy at next follow-up. Reduced libido 6061214 R 68.82 - Possibly related to decreased androgen levels post-hyste rectomy.- Ordered testostero ne assay; will consider testostero ne supplement ation if levels indicate deficiency .- Will review feasibilit y of therapy at next visit after lab results are available. Bipolar disorder 1459486 4 F31.9 - Patient is currently managed on quetiapine 300 mg extended release daily and bupropion ER 300 mg daily.- No adjustment s were discussed; continuing present regimen. 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 Steatotic liver disease [id number] K76.0 - Pending liver scan evaluation on October 04 per gastroente rology.- Will readdress oral estrogen safety and potential switch to transderma l formulatio n following scan results. Migraine w ithout aura, not refractory [id number] G43.709 - Continues sumatripta n 100 mg as needed for migraine episodes.- No modificati ons were introduced at this time. Tobacco de pendence caused by cigarettes [id number] F17.213 - Using daily nicotine patches (14 mg) initiated this week to assist with smoking cessation. - Strongly encouraged complete cessation to mitigate increased thrombotic risks associated with oral estrogen use. History of hysterectomy [id number] Z90.710 - Procedure performed 06/29/2022 for benign uterine mass; bilateral salpingo-o ophorectom y completed. - See Surgical menopause above for ongoing hormone management details. History of bypass of stomach [id number] Z98.84 History of cholecystectomy [id number] Z90.49 [id number] ROSELINE GOZNALEZ NP Main Office [address] [place] [address] 10/31/2024 08:17:36 11/01/2024 04:41:34 Postsurgical menopause [id number] E89.40 - Currently stable on hormone replacemen t therapy; previously on oral estradiol 2 mg, now transition ing to a transderma l patch to reduce hepatic metabolism risk.- Initiated transderma l estradiol patch 0.075 mg; instructed patient to apply every 3-4 days on clean, dry skin (avoiding breasts and rotating sites). Advised to monitor for recurrence of vasomotor symptoms or skin irritation .- Micronized progestero ne 200 mg at bedtime may be discontinu ed if it causes discomfort or insomnia; patient instructed to refrain if no discernibl e benefit is noted.- Discussed mild re-emergen ce of hot flashes when exposed to heat; patient agreed to contact the office for dosage adjustment if hot flashes worsen.- Scheduled follow-up in [facility] 5 weeks for re-assessm ent. Tobacco de pendence caused by cigarettes [id number] F17.213 - Patient reports smoking half a pack daily but using nicotine patches in an attempt to taper.- Encouraged continued smoking cessation efforts; patient advised to report any barriers to further reduction. - Will follow up with primary care regarding ongoing tobacco cessation management . Bipolar disorder [id number] F31.9 - Patient remains stable on current medication regimen including Seroquel XR 150 mg daily and bupropion 150 mg daily.- No recent exacerbati ons documented ; no medication adjustment s indicated at this time.- Patient to continue follow-up with psychiatry for ongoing management . Steatotic liver disease [id number] K76.0 - Per recent imaging, mild steatosis (stage 2) noted; gastroente rologist advised improvemen t possible with diet and exercise.- Next follow-up imaging in [facility] one year; patient advised to continue liver-heal thy interventi ons.- No new pharmacolo gical interventi ons indicated; patient reports decreased gastrointe stinal issues since cholecyste ctomy. Screening for malignant neoplasm of breast [id number] Z12.31 - Ordered routine mammogram for preventive screening; patient consented to scheduling .- Advised to report any breast changes or worrisome findings promptly. Screening for osteoporosis 472491235 Z13.820 - Ordered DEXA scan given patient s menopause status; patient agreed to schedule this concurrent ly with mammogram. - Will evaluate results and determine need for pharmacolo gic therapy if osteopenia or osteoporos is is detected. Reduced libido [id number] R 68.82 - Continued plan to evaluate serum testostero ne level; re-sent laboratory order for [facility] due to prior technical error.- Instructed patient to confirm availabili ty of test order with the facility; will review results once obtained. Health Concerns Section Related Observation LastModified by Organization Detai ls LastModified Time None Recorded Concern Status LastModified by Organization Details LastModified Time None Recorded Advance Directives Directive None Recorded Payers Insurance Date Sequence Insurance Name Policy Number Policy Valle Covered Member ID Valle Member ID Guarantor Name 11/06/2024 1 [employer] (POS II) [id number] Kelin Little [id number] Kelin Little Notes Date Note Type Note Provider Name and Address Organization Details Recorded Time 09/19/2024 text/html The patient is a 48-year-old female with a history of total hysterectomy, bipolar disorder, and heart palpitations presenting for evaluation of menopausal symptoms, including hot flashes, joint pain, and sleep disturbances. Menopausal Symptoms- Underwent a total hysterectomy on June 29, 2022, due to a uterine mass; ovaries were removed to reduce the risk of breast cancer.- Began estrogen therapy (estradiol 2 mg orally daily) immediately post-hysterectomy.- Reports persistent hot flashes, brain fog, and joint pain since the hysterectomy.- Joint pain is described as severe, affecting every joint in the body, particularly in the hands, feet, knees, and hips, and is most pronounced upon waking.- Estrogen levels were reportedly within the normal range during recent evaluations.- Rheumatoid arthritis was ruled out as a cause of joint pain.- Experiences heightened anxiety and difficulty initiating sleep, though sleep quality is good once asleep.- Reports decreased libido, potentially related to joint pain. Weight Management- Current weight is 296 lbs at a height of 5'11.- Started Zepbound 10 mg weekly for weight loss two months ago and has lost approximately 10 lbs.- Underwent gastric bypass surgery in 2009. Migraines- Suffers from migraines, occasionally accompanied by auras, which include visual disturbances, heightened sense of smell, and increased auditory sensitivity.- Uses sumatriptan 100 mg as needed for migraine management. Past Medical History- Bipolar disorder, managed with quetiapine 300 mg extended-release daily and bupropion 300 mg extended-release daily.- Heart palpitations, managed with metoprolol 12.5 mg daily, prescribed by a fitter machinist. Crane Manager aware of PO estradiol regimen.- Acid reflux, managed with lansoprazole 30 mg daily.- Anemia, managed with iron supplementation.- Fatty liver disease, with a liver scan scheduled for October 04.- History of diverticulosis, which led to a blood transfusion in 2012 due to bleeding. Past Surgical History- Gastric bypass surgery in 2009.- Total hysterectomy on June 29, 2022.- Cholecystectomy on August 26 of this year. Family History- Heart disease, osteoporosis, and stroke.- Diabetes mellitus on both sides of the family: maternal grandfather and paternal aunts. Allergies- Grass pollen and ragweed. Current Medications and Supplements- Quetiapine 300 mg extended-release daily.- Bupropion 300 mg extended-release daily.- Lansoprazole 30 mg daily.- Estradiol 2 mg orally daily.- Zepbound 10 mg weekly.- Clonazepam 0.5 mg as needed.- Nicotine patches 14 mg daily.- Sumatriptan 100 mg as needed.- Trazodone 50 mg as needed.- Cyclobenzaprine 10 mg as needed.- Ibuprofen 600 mg as needed.- Metoprolol 12.5 mg daily.- Vitamin D3, iron, B12, and Zyrtec. Social History- Smokes approximately one pack of cigarettes daily; currently using nicotine patches to aid in smoking cessation.- Consumes alcohol approximately once a week, typically 2-3 Twisted Tea drinks.- Denies use of illicit or recreational drugs.- No regular exercise regimen. Virtual Visit AttestationModality: VideoProvider Location: Home Patient Location: [place] Patient State: [place] ROSELINE GONZALEZ, RUFFLER [address] [place], [address], [facility] 09/19/2024 10:13:17 10/31/2024 text/html The patient is a 48-year-old female with a history of total hysterectomy, currently on hormone replacement therapy, presenting for follow-up. Hormone Replacement Therapy- Currently taking estradiol 2 mg orally and micronized progesterone 200 mg orally at night.- Reports improvement in brain fog since starting progesterone.- Noted difficulty falling asleep due to a sensation of skin crawling and restless legs since starting progesterone; however, reports improved sleep quality once asleep.- Has experienced a few hot flashes, usually triggered by external heat, but less severe than a few months ago. Weight Management- Currently taking Zepbound 12.5 mg for weight loss, managed by her primary care physician.- Reports a weight loss of approximately 10 lbs, with current weight at 286 lbs.- Engages in physical activity primarily through housework; not on a regular exercise regimen.- Following a regular diet. Liver Health- Recent liver scan showed some density, described as stage two, manageable with diet and exercise.- Follow-up liver scan scheduled for next year.- Reports significant decrease in gastrointestinal issues since cholecystectomy. Past Diagnostic Results- Liver Scan (October 04): Showed some density, described as stage two, manageable with diet and exercise.- Lab Results: Cholesterol slightly elevated but not in the high range; A1c and other labs reported as normal. Virtual Visit Attestation Modality: Video Provider Location: Home Patient Location: Home Patient State: [place] [address] [place], [address], [facility] [employer] 10/31/2024 10:15:41 OBGyn Episode No OBEpisode recorded.
--- OUTSIDE RECORDS SUMMARY | 2024-11-15 14:00 | XMS_ITS | Referral Summary ---
Author Organization [facility] Address [address] [place] [phone] Phone Care Team Providers Care Botany Professor Name Role Phone MisdavidMat DO Primary Care Provider [phone] Allergies No known active allergies Medications omeprazole [...] on file Legal Sex Female 11:29 AM [employer] Gender Identity Female 04/15/2020 7:20 AM [employer] Sexual Orientation Not on file Last Filed Vital Signs Vital Sign Reading Time Taken Comments Blood Pressure 143/83 03/28/2022 10:23 AM [employer] Pulse 62 03/28/2022 10:23 AM [employer] Temperature 36.6 C (97.9 F) 03/28/2022 10:23 AM [employer] Respiratory Rate 20 03/28/2022 10:23 AM [employer] Oxygen Saturation 96% 03/28/2022 10:23 AM [employer] Inhaled Oxygen Concentration - - Weight 117.9 kg (260 lb) 03/28/2022 10:23 AM [employer] Height 180.3 cm (5' 11) 03/28/2022 10:23 AM [employer] Body Mass Index 36.26 03/28/2022 10:23 AM [employer] Plan of Treatment Not on file Procedures [...] compared to prior imaging studies performed at [facility] on 04/15/2020, 04/27/2021 and 07/29/2022. The breasts [...] compared to prior imaging studies performed at [facility] on 04/15/2020, 04/27/2021 and 07/29/2022. The breasts are almost entirely fatty. There is no suspicious abnormality in either breast. Impression: There is no mammographic evidence of malignancy. Annual screening mammography is recommended. OVERALL FINAL ASSESSMENT: BI-RADS CATEGORY 1: Negative. us Self Screening Mammogram IMG MAMMO PROCEDURES Fi nal Result from Last 3 Months or Most Recently Relevant to Health Maintenance Insurance Care Teams Botany Professor Relationship Specialty Start Date End Date Mat Sifuentes DO PCP - General Family Medicine 04/05/22
--- OUTSIDE RECORDS SUMMARY | 2024-11-15 14:00 | XMS_ITS | Clinical Summary ---
Author Organization [facility] Address [address] [place] [phone] Phone Care Team Providers Care X Ray Equipment Mechanic Name Role Phone Misdavid Mat AMBROSE Primary Care Provider [phone] Allergies No known active allergies Medications omeprazole [...] on file Legal Sex Female 11:29 AM DIRECTOR [employer] Gender Identity Female 04/15/2020 7:20 AM DIRECTOR [employer] Sexual Orientation Not on file Obstetrics History Last Filed Vital Signs Vital Sign Reading Time Taken Comments Blood Pressure 143/83 03/28/2022 10:23 AM DIRECT[employer] Pulse 62 03/28/2022 10:23 AM [employer] Temperature 36.6 C (97.9 F) 03/28/2022 10:23 AM DIRECT[employer] Respiratory Rate 20 03/28/2022 10:23 AM DIRECT[employer] Oxygen Saturation 96% 03/28/2022 10:23 AM DIRECT[employer] Inhaled Oxygen Concentration - - Weight 117.9 kg (260 lb) 03/28/2022 10:23 AM DIRECT[employer] Height 180.3 cm (5' 11) 03/28/2022 10:23 AM DIRECT[employer] Body Mass Index 36.26 03/28/2022 10:23 AM DIRECT[employer] Plan of Treatment Health Maintenance Due Date Last Done Comments Cervical Cancer Screening 1975 Colon Cancer Screening-Colonoscopy 1975 Depression Screening 1975 Hepatitis C Screening 1975 DTaP/Tdap/Td Vaccine (1 - Tdap) 12/07/1986 Hepatitis B Screening 12/07/1993 Regular Well Visit/Exam 18-64 12/07/1993 Pneumococcal vaccine <65 (1 of 2 - PCV) 12/07/1994 Breast Cancer Screening-Mammogram 08/08/2024 08/09/2023, 07/29/2022, 07/29/2021, Additional history exists Influenza Vaccine (#1) 2024 9, 02/08/2018, 02/22/2017 Procedures Procedure Name Priority Date/Time Associated Diagnosis [...] to prior imaging studies performed at [facility] on 04/15/2020, 04/27/2021 and 07/29/2022. The [...] to prior imaging studies performed at [facility] on 04/15/2020, 04/27/2021 and 07/29/2022. The breasts are almost entirely fatty. There is no suspicious abnormality in either breast. Impression: There is no mammographic evidence of malignancy. Annual screening mammography is recommended. OVERALL FINAL ASSESSMENT: BI-RADS CATEGORY 1: Negative. us Self Screening Mammogram IMG MAMMO PROCEDURES Fi nal Result from Last 3 Months or Most Recently Relevant to Health Maintenance Insurance [facility] HMO Care Teams X Ray Equipment Mechanic Relationship Specialty Start Date End Date Mat Sifuentes DO PCP - General Family Medicine 04/05/22
--- OUTSIDE RECORDS SUMMARY | 2024-11-15 14:00 | XMS_ITS | Data Portability ---
Author Organization [facility] Address [address] [place] [address] Care Team Providers Care Fluoroscope Operator Name Role Phone CAROLINE NGUYEN Primary Care Provider Assessment No assessment recorded. Plan of Treatment Reminders Order Date Submit Date Provider Last Modified By Organization Details Last Modified Time Details Appointments None recorded. Lab hormone panel, serum or plasma 2023 [facility] (Lab), [address] [place], [address], 4 05:12:53 MAZIN + rf (antinuclea r antibodies + rheumatoid factor), quantitativ e, serum 2023 024 [email or web address] 1 [facility] (Lab), [address] [place], [address], 4 11:49:44 C-reactive protein, quantitativ e, serum or plasma 2023 024 [facility] (Lab), [address] [place], [address], 4 05:12:53 ESR (erythrocyt e sedimentati on rate), blood 2023 024 [facility] (Lab), [address], [place], [address], 4 05:12:52 Referral None recorded. Procedures None recorded. Surgeries robotic assisted hysterectom y with salpingecto my (SURG) 2022 023 [facility], [address], [place], [address], 3 17:18:36 Imaging None recorded. Medication Orders estradiol 1 mg tablet 2022 023 [email or web address] 1 [facility] #[id number], [address], [place], [address], 4 12:09:09 Patient TargetsNo targets recorded. Patient [...] OSIS: Negat zoltan for Intra epith elial Lissette n or Fadi solano (NIL) . Elect [...] as clini radha castillo nted. Not Available [facility] (Lab) [address], [place], [address], 06/02/2022 10:07:44 05/30/19 23 05/30/2022 CT/GC (CRISS) , THINP REP VIAL chlamydia trachomatis, PCR Negati ve negati ve Not Available [facility] (Lab) [address], [place], [address], 06/02/2022 10:07:44 05/30/19 23 05/30/2022 CT/GC (CRISS) , THINP REP VIAL neisseria gonorrhoeae, PCR Negati ve negati ve Not Available [facility] (Lab) [address], [place], [address], 06/02/2022 10:07:44 05/30/19 23 05/30/2022 TRICH OMONA S VAGIN VANCE (RRNA ) trichomonas vaginalis ribosomal RNA (rrna) Negati ve negati ve Not Available [facility] (Lab) [address], [place], [address], 06/02/2022 10:07:45 05/30/19 23 05/30/2022 DHEA SULFA TE DHEA-sulfate 17 ug/dL Femal e Range s Age(y ) Range (ug/d L) 10-15 34-28 0 15-20 65-36 8 20-25 148-4 07 25-35 99-34 0 35-45 61-33 7 45-55 35-25 6 55-65 19-20 5 65-75 9-246 > 75 12-15 4 Not Available [facility] (Lab) [address], [place], [address], 06/03/2022 17:18:15 05/30/19 23 05/30/2022 HUMAN SEX HORMO NE NAZARIO NG GLOBU HAIM sex hormone binding globulin 48.3 nmole s/L 16.8-1 25.2 Not Available [facility] (Lab) [address], [place], [address], 06/03/2022 17:18:16 05/30/19 23 05/30/2022 TSH, REFLE X FREE T4 TSH 3.26 uIU/m L 0.30-5 .33 Not Available [facility] (Lab) [address], [place], [address], 06/03/2022 17:18:16 05/30/19 23 05/30/2022 PROGE STERO NE progesterone 0.71 NG/mL This assay was perfo rmed using [employer] ratio n reage nts and test kits. Value s obtai meg with other assay metho ds or kits canno t be used inter [facility] . Femal e Proge stero ne Range s: Folli cular phase 0.06- 0.89 ng/mL Ovula tion phase 0.12- 12.00 ng/mL Lutea l phase 1.83- 23.90 ng/mL Postm enopa usal< 0.05- 0.13 ng/mL Healt hy Pregn ant Women 1st Trime ster1 1.0-4 4.30 2nd Trime ster2 5.40- 83.30 3rd Trime ster5 8.70- 214.0 0 Not Available [facility] (Lab) [address], [place], [address], 06/03/2022 17:18:16 05/30/19 23 05/30/2022 PROLA CTIN prolactin, total 4.92 NG/mL 4.79-2 3.30 This assay was perfo rmed using [employer] n reage nts and test kits. Value s obtai meg with other assay metho ds or kits canno t be used inter [facility] . Not Available [facility] (Lab) [address], [place], [address], 06/03/2022 17:18:17 05/30/19 23 05/30/2022 FSH, LH, ESTRA DIOL estradiol 66.7 pg/mL This assay was perfo rmed using [employer] reage nts and test kits. Value s obtai meg with other assay metho ds or kits canno t be used inter [facility] . Femal e Estra diol Range s: Folli cular phase 12.4- 233 pg/mL Ovula tion phase 41.0- 398 pg/mL Lutea l phase 22.3- 341 pg/mL Postm enopa usal< 5-138 pg/mL Healt hy Pregn ant Women 1st Trime ster1 54-32 43 pg/mL 2nd Trime ster1 561-2 1280 pg/mL 3rd Trime ster8 525-> 65088 pg/mL Not Available [facility] (Lab) [address], [place], [address], 06/03/2022 17:18:17 05/30/1905/30/2022 FSH, LH, ESTRA DIOL FSH 5.2 mIU/m L This assay was perfo rmed using [employer] ratio n reage nts and test kits. Value s obtai meg with other assay metho ds or kits canno t be used inter [facility] . Femal es Folli cular : 3.5-1 2.5 mIU/m L Ovula tion: 4.7-2 1.5 mIU/m L Lutea l: 1.7-7 .7 mIU/m L Postm enopa use: 25.8- 134.8 mIU/m L Not Available [facility] (Lab) [address], [place], [address], 06/03/2022 17:18:17 05/30/1905/30/2022 FSH, LH, ESTRA DIOL LH 5.8 mIU/m L This assay was perfo rmed using [employer] reage nts and test kits. Value s obtai meg with other assay metho ds or kits canno t be used inter [facility] . Femal es Mid-F ollic ular: 2.4-1 2.6 mIU/m L Mid-C ycle: 14.0- 95.6 mIU/m L Mid-L uteal : 1.0-1 1.4 mIU/m L Postm enopa use: 7.7-5 8.5 mIU/m L Not Available [facility] (Lab) [address] [place], [address], 06/03/2022 17:18:17 05/30/1905/30/2022 TESTO STERO NE, FREE( [...] cteri stics have been deter mined by [employer]. It has not been clear ed or appro mitzy by the FDA. This assay has been valid ated pursu ant to the CLIA regul ation s and is used for clini froilan purpo ses. Not Available [facility] (Lab) [address], [place], [address], 06/03/2022 17:18:18 05/30/1905/30/2022 TESTO STERO NE, FREE( DIALY SIS) AND TOTAL (LC/M S/MS) testosterone , free 1.1 pg/mL 0.1-6. 4 This test was devel oped and its halie tical perfo rmanc e diane cteri stics have been deter mined by [employer]. It has not been clear ed or appro mitzy by the FDA. This assay has been valid ated pursu ant to the CLIA regul ation s and is used for clini froilan purpo ses. Perfo rming Organ izati on Moiz stanleyjas daly: Site ID: [id number] Name: [employer] [facility] Addre ss: [id number] [address] [place] [address] Direc tor: Skinny bass M.D. Not Available [facility] (Lab) [address], [place], [address], 06/03/2022 17:18:18 08/16/1908/16/2023 SEDIM ENTAT ION RATE, ESR sedimentatio n rate 24 mm/ho ur (based on docume nted legal sex) 0-20 high Not Available [facility] (Lab) [address] [place], [address], 08/17/2023 05:12:52 08/16/19 24 08/16/2023 CRP (C-RE ACTIV E PROTE IN) C-reactive protein 3.3 mg/L 0.0-10 .0 Not Available [facility] (Lab) [address] [place], [address], 08/17/2023 05:12:53 08/16/19 24 08/16/2023 FSH, LH, ESTRA DIOL estradiol 63.8 pg/mL This assay was perfo rmed using [employer] ratio n reage nts and test kits. Value s obtai meg with other assay metho ds or kits canno t be used inter [facility] . Femal e Estra diol Range s: Folli cular phasE 12.4- 233 pg/mL Ovula tion phasE 41.0- 398 pg/mL Lutea l phasE 22.3- 341 pg/mL Postm enopa usal <5-13 8 pg/mL Healt hy Pregn ant Women 1st Trime ster 154-3 243 pg/mL 2nd Trime ster 1561- 10341 pg/mL 3rd Trime ster 8525- >3000 0 pg/mL Not Available [facility] (Lab) [address] [place], [address], 08/17/2023 05:12:53 08/16/19 24 08/16/2023 FSH, LH, ESTRA DIOL FSH 28.5 mIU/m L This assay was perfo rmed using [employer] ratio n reage nts and test kits. Value s obtai meg with other assay metho ds or kits canno t be used inter [facility] . Femal es Folli cular : 3.5-1 2.5 mIU/m L Ovula tion: 4.7-2 1.5 mIU/m L Lutea l: 1.7-7 .7 mIU/m L Postm enopa use: 25.8- 134.8 mIU/m L Not Available [facility] (Lab) [address], [place], [address], 08/17/2023 05:12:53 08/16/19 24 08/16/2023 FSH, LH, [...] use: 7.7-5 8.5 mIU/m L Not Available [facility] (Lab) [address], [place], [address], 08/17/2023 05:12:53 06/02/19 23 06/02/2022 US, pelvi s No observ ation record ed. [email or web address] [facility] [address], [place], [address], 06/02/2022 13:19:33 06/02/19 23 06/02/2022 US, trans vagin al No observ ation record ed. [email or web address] [facility] [address], [place], [address], 06/02/2022 13:19:24 06/02/19 23 06/02/2022 US, pelvi s No observ ation record ed. [address], [facility], [place], [address], 06/02/2022 22:29:02 06/30/19 23 06/29/2022 XR, cysto gram No observ ation record ed. [address], [place], [address], 06/29/2022 20:55:57 Result Notes None recorded. Problems Name Problem SNOMED Code Status Onset Date Resolution Date Notes Provider Name and Address Organization Details Recorded Time Body mass index 30+ - obesity 351934367 Active 2018 Body mass index (BMI) 35.0-35.9, adult;Brandon rded Elsewhere: No Locatio n: [facility] rce: EHR Chroni c: N Practice ID: [id number] Billadonis ble Time: 08:30:00 AM Not Available [facility] 3 14:49:20 Abnormal cervical Papanicol aou smear 388290815 Active 2023 Layla kinney [facility] 4 12:11:37 Human papilloma virus infection 133259900 Active 2023 Layla kinney [facility] 4 12:11:44 Mixed anxiety and depressiv e disorder 162174342 Active 2023 Layla kinney, [facility] 4 12:12:07 Problem Notes None recorded. Procedures Surgical History Date Name Laterality Status Provider Name and Address Organization Details Recorded Time 06/30/19 23 ROBOTIC ASSISTED HYSTERECTOMY WITH SALPINGECTOMY (SURG) completed Xochilt Arndt [facility] 06/30/2022 09:56:48 05/30/19 23 Date of Last Pap Smear completed Layla Stephenson [facility] 08/12/2023 12:19:27 04/29/20 21 Date of Last Mammogram completed Layla Stephenson [facility] 08/12/2023 12:21:12 08/10/19 19 completed Mignon Flor [facility] 03/29/2021 10:39:27 06/18/19 16 Colposcopy completed Mignon Flor [facility] 03/24/2021 16:13:23 06/18/19 16 [facility] 08/12/2023 12:23:46 05/07/19 16 endometrial biopsy [facility] 08/12/2023 12:24:01 05/01/19 01 Gastric Bypass completed [facility] 02/18/2020 16:32:43 05/01/18 92 Dilation and Curettage completed [facility] 02/18/2020 16:33:02 Imaging Results None recorded. Procedure Notes None [...] Prescrib ed Elsewher e: Yes Loca tion: [facility] M odify By: farshad wetzel DateTime [...] Prescrib ed Elsewher e: Yes Loca tion: [facility] M odify By: farshad wetzel DateTime : 03/17/20 [...] tablet TAKE 1 TABLET BY MOUTH DAILY active Not Available Not Available No t Available insulin syringe U-100 with needle 1 mL 31 gauge x 5/16 USE EVERY OTHER WEEK FOR INJECTIO NS 03/24 completed Not Available Not Available Not Available hydrochlo rothiazid e 25 mg tablet take 1 tablet by oral route every day 05/30 completed Prescrib ed Elsewher e: Yes Loca tion: [facility] odify By: farshad wetzel DateTime : 02/03/20 [...] Prescrib ed Elsewher e: Yes Loca tion: [facility] odify By: win wetzel DateTime : 08/10/19 19 08:30:00 AM Not [...] Prescrib ed Elsewher e: Yes [facility] By: win santiagounter DateTime : 08/10/19 19 08:30:00 AM Not Available Not Available Not Available bupropion HCl (bulk) 100 % powder 05/30 completed Prescrib ed Elsewher e: Yes [facility] odify By: farshad santiagounter DateTime : 02/03/20 [...] Elsewher e: Yes Loca tion: [facility] odify By: alirio wetzel DateTime : 03/17/20 15 02:00:00 PM Not Available Not Available Not Available B12 5,000 mcg-100 mcg sublingua l lozenge 05/30 completed Prescrib ed Elsewher e: Yes Loca tion: [facility] odify By: win santiagounter DateTime : 08/10/19 19 08:30:00 AM Not Available Not Available Not Available B12 05/30 completed Not Available Not Available Not Available Contour Next Test Strips TEST BLOOD SUGAR ONCE DAILY active Not Available Not Available No t Available Multi Vitamin 9 mg iron/15 mL oral liquid 08/11 completed Prescrib ed Elsewher e: Yes Loca tion: [facility] odify By: win wetzel DateTime : 08/10/19 19 08:30:00 AM Not [...] Body weight Body mass index (BMI) Systolic And Diastolic Provider Name and Address Organization Details Last Updated DateTime 06/14/2022 160.02 cm 316687.97 g 51.7 kg/m2 120/82 mm[Hg] Ana Laura Iqbal [facility] 06/14/2022 11:56:29 Date Recorded Body height Body mass index (BMI) Body weight Systolic And Diastolic Provider Name and Address Organization Details Last Updated DateTime 06/24/2022 160.02 cm 52.4 kg/m2 532849.34 g 115/79 mm[Hg] Ana Laura Iqbal [facility] 06/24/2022 13:05:48 Date Recorded Body height Body mass index (BMI) Body weight Systolic And Diastolic Provider Name and Address Organization Details Last Updated DateTime 07/06/2022 160.02 cm 51.9 kg/m2 396673.56 g 135/85 mm[Hg] Ana Laura Iqbal [facility] 07/06/2022 15:01:39 Date Recorded Body height Body mass index (BMI) Body weight Systolic And Diastolic Provider Name and Address Organization Details Last Updated DateTime 08/12/2023 160.02 cm 54.9 kg/m2 155600.63 g 115/78 mm[Hg] Layla Stephenson [facility] 08/12/2023 12:08:10 Social History Question Answer Notes LastModified by Organizat ion Details LastModified Time Tobacco Smoking Status Current Every Day Smoker Ana Laura Iqbal [facility] 07/06/2022 15:01:55 Do You Have An Advance Directive? No Information n ot available 07/06/2022 How Many Years Have You Consumed Alcohol? 25 Information not available 07/06/2022 Are You Blind Or Do You Have Difficulty Seeing? No Information n ot available 05/30/2022 What Is Your Level Of Caffeine Consumption? Moderate Information not available 05/30/2022 How Much Tobacco Do You Chew? None Information not available 05/30/2022 In The 14 Days Before Symptom Onset, Have You Had Close Contact With A Laboratory-confirm ed COVID-19 While That Case Was Ill? No Information n ot available 05/30/2022 In The 14 Days Before [...] Of Diet Are You Following? REGULAR Information n ot available 07/06/2022 What Is The Highest Grade Or Level Of School You Have Completed Or The Highest Degree You Have Received? [id number] Information not available 05/30/2022 Are There Any Guns Present In Your [...] PPD Information not available 07/06/2022 Do You Use Sunscreen Routinely? Yes Information not available 05/30/2022 How Many Years Have You Smoked Tobacco? 31 Information not available 05/30/2022 Have You Used IV Drugs? No Information not available 05/30/2022 Do You Have Difficulty Walking Or Climbing Stairs? No Information not available 07/06/2022 Sex: Unknown Functional Status Question Answer Note LastModified by Organizat ion Details LastModified Time Do you use any illicit or recreational drugs? No Information not available 05/30/2022 What is your level of alcohol consumption? Occasional Information not available 05/30/2022 Are you able to walk? YESWOREST Information not available 05/30/2022 Are you able to care for yourself? 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 No Information not available 07/06/2022 What is your exercise level? Occasional Information not available 07/06/2022 Mental Status Question Answer Note LastModified by Organization D etails LastModified Time Do you feel stressed (tense, restless, nervous, or anxious, or unable to sleep at night)? [id number] Information not available 05/30/2022 Family History Relationship Description Onset Age of [...] Maternal Grandfather History of cardiovascul ar disease [email or web address] Not available 06/24 12:32:52 Maternal Uncle Hypercholest erolemia [email or web address] Not available 2019 16:27:32 Maternal Uncle Hypertensive disorder jgumber Not available 2019 16:29:54 Maternal Uncle Diabetes mellitus jgumber Not available 2019 16:31:04 Maternal Aunt Hypercholest erolemia jgumber Not available 2019 16:27:32 Maternal Aunt Hypertensive disorder jgumber Not available 2019 16:29:54 Maternal Aunt History of cardiovascul ar disease [email or web address] Not available 06/24 12:32:52 Sister Hypertensive disorder [...] (Food, seasonal, environmental ) Y Other Y Drug/Latex Allergies/Reactions N Blood Transfusion N Breast Cancer N Dermatologic Disorders N Lung Disease N [...] SNOMED-CT Code Diagnosis ICD10 Code Diagnosis Note [id number] [facility] [address] [address] 03/12/2020 09:36:43 03/12/2020 10:36:25 Gynecologic examination 91078739 Z01.419 Suggested Calcium with Vitamin D 1200-1500m g daily. Patient advised to get an annual flu shot in the fall and she could obtain at [facility] or [facility] care clinic. Also to obtain TDap vaccinatio [...] please call or respond to this email. [id number] Bess Buck CNM [facility] [address] [address] 03/29/2021 10:23:40 03/29/2021 11:29:05 Gynecologic examination 41166463 Z01.419 Z11.51 Suggested Calcium with Vitamin D 1200-1500m g daily. Patient advised to get an annual flu shot in the fall and she could obtain at [facility] or [facility] care clinic. Also to obtain TDap vaccinatio [...] call or respond to this email. Vaginitis 20734610 N76.0 Occasional bilateral labial itching and some itching around clitoris. Slight irritation noted. Will treat with diflucan. If no resolution of symptoms pt will call us. [id number] AKSHAT Wick [facility] [address] [address] 05/30/2022 11:48:41 05/30/2022 13:50:28 Abnormal uterine bleeding 8558163229 9100 N93.9 Gynecologi c examination 97883329 Z01.419 Suggested Calcium with Vitamin D 1200-1500m g daily. Patient advised to get an annual flu shot in the fall and she could obtain at [facility] or [facility] care clinic. Also to obtain TDap vaccinatio [...] plan of care. Venereal d isease screening 187783610 Z11.3 [id number] Joni Walker MD [facility] [address] [address] 06/02/2022 10:49:42 06/02/2022 11:53:50 Abnormal uterine bleeding 0677696358 9100 N93.9 [id number] Joni Walker MD [facility] [address] [address] 06/14/2022 11:19:35 06/14/2022 16:23:41 Menorrhagia 096449314 N92.0 Dysmenorrhea 291982271 N 94.6 Uterine leiomyoma 257507 05 D25.9 This patient is a 46-year-ol [...] agreed to move forward with hysterecto my. [id number] Joni Walker MD [facility] [address],[place] [address] 06/24/2022 12:32:05 06/27/2022 15:05:10 Uterine leiomyoma 53274695 D25.9 Dysmenorrhea 373785122 N 94.6 Menorrhagia 276869039 N9 2.0 this patient is a 46-year-ol d female who presents for preoperati ve care. She has severe menorrhagi a and dysmenorrh ea. She has a large fibroid. We have agreed to perform robotic assisted hysterecto my with bilateral salpingo-o ophorectom y. She understand s the risks, benefits, and alternativ es. She has completed the informed consent process and is ready to proceed. [id number] Joni Walker MD [facility] [address],[place] [address] 07/04/2022 10:13:46 07/04/2022 10:14:55 [id number] Joni Walker MD [facility] [address],[place] [address] 07/06/2022 14:50:08 07/06/2022 15:45:18 Menopausal symptom 39212861 E89.41 this patient is a 46-year-ol d female presents for postoperat zoltan care. Her incisions are clean dry and intact. She has some appropriat e postoperat zoltan pain/ discomfort . No bleeding, no foul-smell ing vaginal discharge. No nausea, vomiting, fever, chills. To follow up for routine gynecologi c care. [id number] Joni Walker MD [facility] [address],[place] [address] 08/12/2023 11:38:06 08/14/2023 23:15:43 Pain of multiple joints 93598751 M25.50 Menopausal symptom 72562 002 E89.41 This patient is a 47-year-ol [...] None Recorded Advance Directives Directive N: Payers Insurance Date Sequence Insurance Name Policy Number Policy Valle Covered Member ID Valle Member ID Guarantor Name 07/01/2024 1 [employer] (POS) [id number] Debbie Little [id number] Kelin Little Notes Date Note Type [...] hysterectomy. Joni Walker MD [address], [place], [address], [facility] 06/14/2022 16:22:11 06/24/2022 text/html this patient [...] infection. Joni Walker MD [address], [place], [address], [facility] 06/29/2022 14:45:23 07/06/2022 text/html this patient is a 46-year-old female presents for postoperative care. Her incisions are clean dry and intact. She has some appropriate postoperative pain/ discomfort. No bleeding, no foul-smelling vaginal discharge. No nausea, vomiting, fever, chills. To follow up for routine gynecologic care. Joni Walker MD [address], [place], [address], [facility] 07/06/2022 15:40:48 [...] rheumatoid arthritis. We spent over 20 minutes [id number]. More than 50% was counseling. Joni Walker MD [address], [place], [address], [facility] 08/14/2023 20:28:53 OBGyn Episode Ob Episode Information Episode Created Date Number of Fetuses Patient Bloodtype Patient rh Status Prepregnancy Weight lbs Domestic Partner Domestic Partner Phone Father Name [employer] Status 02/18/20 20 1 CLOSED Fetus Data [...]
== END 2024-11-15 13:57 | disposition home or self-care (01) ==
LOC: CHSIMG 13:57
PROVIDERS: PCP Emergency Medicine
DX: Z12.31 Encounter for screening mammogram for malignant neoplasm of breast (principal); Z78.0 Asymptomatic menopausal state
CPT/HCPCS: 77063; 77067; 77080